=== PATIENT | female | born 1955 | race Hispanic/Latino ===

== ENCOUNTER 2016-05-04 22:04 | Emergency (ER) | payer MEDICARE ==
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
[2016-05-04 23:36] LABS: BUN/Creatinine Ratio 15.55; Blood Urea Nitrogen 14 mg/dL (7-17); Calcium 9.3 mg/dL (8.4-10.2); Carbon Dioxide 24 mmol/L (22-30); Chloride 98.6 mmol/L (98-107); Glucose 116 mg/dL (65-100); Potassium 3.9 mmol/L (3.6-5.0); Sodium 140 mmol/L (137-145)
[2016-05-04 23:37] LABS: Basophils % (Auto) 0.7 % (0.0-1.8); Eosinophils % (Auto) 2.3 % (0.0-4.3); Hematocrit 39.3 % (30.3-42.9); Hemoglobin 13.6 gm/dl (10.1-14.3); Mean Corpuscular HGB Conc 35 % (30-34); Mean Corpuscular Hemoglobin 32 pg (28-32); Mean Corpuscular Volume 91 fl (79-97); Platelet Count 349 K/mm3 (140-440); Red Blood Count 4.34 M/mm3 (3.65-5.03); Red Cell Distribution Width 13.8 % (13.2-15.2); White Blood Count 9.4 K/mm3 (4.5-11.0)
[2016-05-04 23:51] LABS: Anion Gap 21 mmol/L
[2016-05-05 03:51] VITALS: BP 135/75
--- NOTE | 2016-05-05 04:07 | Emergency Department Report ---
- General Chief Complaint: Dyspnea/Respdistress Stated Complaint: FLU SX/PAIN Time Seen by Provider: 05/04/16 22:30 Source: patient Mode of arrival: Ambulatory Limitations: No Limitations - History of Present Illness Initial Comments: 60-year-old female with a past medical history of manic depression and previous bronchitis presents to the hospital complaints of cough, chest pain, and generalized body aches with intermittent fever. Patient states symptoms intermittently for the past several weeks. Patient reports his pain with coughing and inspiration. Subjective fever reported. Positive associated runny nose and sneezing. - Related Data Home Medications Medication Instructions Recorded Confirmed Last Taken Albuterol [Proventil Tab] 4 mg PO BID PRN 01/28/16 01/28/16 Unknown Previous Rx's Medication Instructions Recorded Last Taken Type Ciprofloxacin HCl [Ciprofloxacin 500 mg PO Q12HR #20 tab 02/01/16 Unknown Rx TAB] Ziprasidone [Geodon] 20 mg PO BID #60 capsule 02/01/16 Unknown Rx oxyCODONE /ACETAMINOPHEN [Percocet 1 tab PO Q4HR #10 tab 02/01/16 Unknown Rx 5/325] Azithromycin [Zithromax Z-SERGO] 1 dose PO DAILY 5 Days 05/05/16 Unknown Rx Benzonatate [Tessalon Perles] 100 mg PO Q8HR PRN #30 capsule 05/05/16 Unknown Rx Pseudoephedrine [Sudafed] 60 mg PO BID PRN #20 tab 05/05/16 Unknown Rx Allergies Allergy/AdvReac Type Severity Reaction Status Date / Time cephalexin monohydrate Allergy Rash Verified 03/11/15 17:41 [From Keflex] aripiprazole [From Abilify] AdvReac "tardive Verified 03/11/15 17:41 dyskinesia" haloperidol [From Haldol] AdvReac pain Verified 03/11/15 17:41 haloperidol lactate AdvReac pain Verified 03/11/15 17:41 [From Haldol] lisinopril AdvReac "it hurts Verified 03/11/15 17:41 my head" lithium AdvReac "It makes Verified 03/11/15 17:41 me mad" Phenothiazines AdvReac pain Verified 03/11/15 17:41 quetiapine fumarate AdvReac pain Verified 03/11/15 17:41 [From Seroquel] risperidone [From Risperdal] AdvReac tardive Verified 03/11/15 17:41 dyskinesia steroids Allergy Unknown Uncoded 03/11/15 17:41 ED Review of Systems ROS: Stated complaint: FLU SX/PAIN Other details as noted in HPI Comment: All other systems reviewed and negative Other: Constitutional: Subjective fever Eyes: No eye pain visual changes or discharge ENT: Nasal congestion Neck: Denies pain Respiratory: As per HPI Cardiovascular: As per HPI GI: Denies abdominal pain, nausea, vomiting, diarrhea : Denies dysuria Musculoskeletal: Body ache Skin: Denies rash, lesions, erythema Neurologic: Denies headache, numbness, weakness Psychiatric: Denies suicidal ideation, hallucinations ED Past Medical Hx - Past Medical History Previous Medical History?: Yes Hx Congestive Heart Failure: No Hx Diabetes: No Hx Psychiatric Treatment: Yes (manic depression) Hx Asthma: No Hx COPD: Yes Additional medical history: bronchitis. neurogenic bladder. Multiple prior UTIs and kidney stone - Surgical History Past Surgical History?: Yes Additional Surgical History: hysterectomy. hemorrhoid - Social History Smoking Status: Current Every Day Smoker - Medications Home Medications: Home Medications Medication Instructions Recorded Confirmed Last Taken Type Albuterol [Proventil Tab] 4 mg PO BID PRN 01/28/16 01/28/16 Unknown History Ciprofloxacin HCl [Ciprofloxacin 500 mg PO Q12HR #20 tab 02/01/16 Unknown Rx TAB] Ziprasidone [Geodon] 20 mg PO BID #60 capsule 02/01/16 Unknown Rx oxyCODONE /ACETAMINOPHEN [Percocet 1 tab PO Q4HR #10 tab 02/01/16 Unknown Rx 5/325] Azithromycin [Zithromax Z-SERGO] 1 dose PO DAILY 5 Days 05/05/16 Unknown Rx Benzonatate [Tessalon Perles] 100 mg PO Q8HR PRN #30 capsule 05/05/16 Unknown Rx Pseudoephedrine [Sudafed] 60 mg PO BID PRN #20 tab 05/05/16 Unknown Rx ED Physical Exam - General Limitations: No Limitations - Other Other exam information: General: No limitations, patient is alert in no acute distress Head exam: Atraumatic, normocephalic Eyes exam: Normal appearance, pupils equal reactive to light, extraocular movements intact ENT: Moist mucous membrane, normal oropharynx, nasal congestion Neck exam: Normal inspection, full range of motion, no meningismus nontender Respiratory exam: Clear to auscultation bilateral, no wheezes, rales, crackles Cardiovascular: Normal rate and rhythm, normal heart sounds Abdomen: Soft, nondistended, and nontender, with normal bowel sounds, no rebound, or guarding Extremity: Full range of motion normal inspection no deformity, no edema Back: Normal Inspection, full range of motion, no tenderness Neurologic: Alert, oriented x3, cranial nerves intact, no motor or sensory deficit Psychiatric: normal affect, normal mood Skin: Warm, dry, intact ED Course Vital Signs 05/04/16 05/05/16 22:30 03:45 Temperature 98.2 F 98.0 F Pulse Rate 112 H 100 H Respiratory 18 18 Rate Blood Pressure 106/85 Blood Pressure 135/75 [Right] O2 Sat by Pulse 94 97 Oximetry ED Medical Decision Making - Lab Data Result diagrams: 05/04/16 22:45 05/04/16 22:45 Lab Results 05/04/16 05/04/16 Range/Units 22:45 22:45 WBC 9.4 (4.5-11.0) K/mm3 RBC 4.34 (3.65-5.03) M/mm3 Hgb 13.6 (10.1-14.3) gm/dl Hct 39.3 (30.3-42.9) % MCV 91 (79-97) fl MCH 32 (28-32) pg MCHC 35 H (30-34) % RDW 13.8 (13.2-15.2) % Plt Count 349 (140-440) K/mm3 Lymph % (Auto) 31.4 (13.4-35.0) % [place] % (Auto) 7.6 H (0.0-7.3) % Eos % (Auto) 2.3 (0.0-4.3) % Baso % (Auto) 0.7 (0.0-1.8) % Lymph # 3.0 (1.2-5.4) K/mm3 [place] # 0.7 (0.0-0.8) K/mm3 Eos # 0.2 (0.0-0.4) K/mm3 Baso # 0.1 (0.0-0.1) K/mm3 Seg Neutrophils % 58.0 (40.0-70.0) % Seg Neutrophils # 5.5 (1.8-7.7) K/mm3 Sodium 140 (137-145) mmol/L Potassium 3.9 (3.6-5.0) mmol/L Chloride 98.6 (98-107) mmol/L Carbon Dioxide 24 (22-30) mmol/L Anion Gap 21 mmol/L BUN 14 (7-17) mg/dL Creatinine 0.9 (0.7-1.2) mg/dL Estimated GFR > 60 ml/min BUN/Creatinine Ratio 15.55 % Glucose 116 H (65-100) mg/dL Calcium 9.3 (8.4-10.2) mg/dL Troponin T < 0.010 (0.00-0.029) ng/mL - EKG Data -: EKG Interpreted by Me (sinus rhythm rate 112) - EKG Data When compared to previous EKG there are: previous EKG unavailable - Radiology Data Radiology results: image reviewed (chest x-ray: No acute findings) - Medical Decision Making Heart rate to 100 without ED treatment. Patient treated with antibiotics for acute bronchitis and cough medicine. She is nontoxic appearing with unremarkable chest x-ray and lab work. No signs of hypoxia. Patient given first dose of azithromycin and Tessalon Perles prior to discharge - Differential Diagnosis bronchitis, pneumonia, viral syndrome, influenza Critical Care Time: No Critical care attestation.: If time is entered above; I have spent that time in minutes in the direct care of this critically ill patient, excluding procedure time. ED Disposition Clinical Impression: Acute bronchitis Qualifiers: Bronchitis organism: unspecified organism Qualified Code(s): J20.9 - Acute bronchitis, unspecified Disposition: DISCHARGED TO HOME OR SELFCARE Is pt being admited?: No Does the pt Need Aspirin: No Condition: Stable Instructions: Acute Bronchitis (ED) Additional Instructions: Take the medication as prescribed. Return if symptoms worsen. Prescriptions: Azithromycin [Zithromax Z-SERGO] 1 dose PO DAILY 5 Days Benzonatate [Tessalon Perles] 100 mg PO Q8HR PRN #30 capsule PRN Reason: Cough Pseudoephedrine [Sudafed] 60 mg PO BID PRN #20 tab PRN Reason: Nasal Congestion Referrals: PRIMARY CARE, [Primary Care Provider] - 3-5 Days [facility] [Provider Group] - 3-5 Days Time of Disposition: 04:06
[2016-05-05] MEDS ORDERED: TESSALON PERLES PO ONE (04:08)
[2016-05-05] MEDS ORDERED: ZITHROMAX PO ONE (04:08)
--- NOTE | 2016-05-05 09:40 | XRay Report ---
Chest 2 views: Compared to 03/11/15. History: Shortness of breath. Findings: Normal cardiomediastinal silhouette. Trachea is midline. No consolidation, pneumothorax or pleural effusion. Impression: No acute cardiopulmonary findings.
== END 2016-05-05 05:48 | disposition home or self-care (01) ==
LOC: ED 22:04
DX: J20.9 Acute bronchitis, unspecified (principal); M79.1 Myalgia; J44.9 Chronic obstructive pulmonary disease, unspecified; F33.9 Major depressive disorder, recurrent, unspecified; F17.200 Nicotine dependence, unspecified, uncomplicated; Z88.1 Allergy status to other antibiotic agents; Z88.8 Allergy status to other drugs, medicaments and biological substances
CPT/HCPCS: 36415; 71020; 80048; 84484; 85025; 93005; 93010; 99284

== ENCOUNTER 2016-05-27 14:04 | Emergency (ER) | payer MEDICARE ==
[2016-05-27 17:08] LABS: Anion Gap 19 mmol/L; BUN/Creatinine Ratio 13.75; Blood Urea Nitrogen 11 mg/dL (7-17); Calcium 8.7 mg/dL (8.4-10.2); Carbon Dioxide 25 mmol/L (22-30); Chloride 97.2 mmol/L (98-107); Glucose 114 mg/dL (65-100); Potassium 3.9 mmol/L (3.6-5.0); Sodium 137 mmol/L (137-145)
[2016-05-27 17:27] LABS: Basophils % (Auto) 0.7 % (0.0-1.8); Eosinophils % (Auto) 0.9 % (0.0-4.3); Hematocrit 41.7 % (30.3-42.9); Hemoglobin 13.8 gm/dl (10.1-14.3); Mean Corpuscular HGB Conc 33 % (30-34); Mean Corpuscular Hemoglobin 31 pg (28-32); Mean Corpuscular Volume 93 fl (79-97); Platelet Count 291 K/mm3 (140-440); Red Blood Count 4.51 M/mm3 (3.65-5.03); Red Cell Distribution Width 13.7 % (13.2-15.2); White Blood Count 7.7 K/mm3 (4.5-11.0)
[2016-05-27 18:34] LABS: Bilirubin,Urine NEG (Negative); Blood,Urine NEG (Negative); Ketones,Urine NEG (Negative); Leukocyte Esterase,Urine TR (Negative); Mucus,Urine FEW /HPF; Nitrite,Urine NEG (Negative); Protein,Urine <15 mg/dL mg/dL (Negative); Urobilinogen,Urine < 2.0 mg/dL (<2.0)
[2016-05-28] MEDS ORDERED: PROVENTIL IH ONE (03:50)
[2016-05-28] MEDS ORDERED: ATROVENT IH ONE (03:50)
--- NOTE | 2016-05-28 06:39 | Emergency Department Report ---
HPI - General Chief Complaint: Upper Respiratory Infection Time Seen by Provider: 05/28/16 03:42 - HPI HPI: 61-year-old female who presents to the emergency department with a complaint of a 2 to three-day history of a mixed dry and productive cough, chest congestion. Patient's that she was diagnosed with bronchitis couple weeks ago and does not think that she has clearly got rid of it. She denies any chest pain but does say that she gets some chest wall pain when she coughs. She has a past medical history of COPD but is not oxygen dependent, bronchitis , manic depression, neurogenic bladder. She is a tobacco smoker. She denies having a primary care doctor. No recent travel or sick contacts at home. She denies any history of MD, CVA, PE/DVT. She did not take anything for symptoms prior to presentation. ED Past Medical Hx - Past Medical History Previous Medical History?: Yes Hx Congestive Heart Failure: No Hx Diabetes: No Hx Psychiatric Treatment: Yes (manic depression) Hx Asthma: No Hx COPD: Yes Additional medical history: bronchitis. neurogenic bladder. Multiple prior UTIs and kidney stone - Surgical History Past Surgical History?: Yes Additional Surgical History: hysterectomy. hemorrhoid - Social History Smoking Status: Current Every Day Smoker Substance Use Type: None - Medications Home Medications: Home Medications Medication Instructions Recorded Confirmed Last Taken Type Ciprofloxacin HCl [Ciprofloxacin 500 mg PO Q12HR #20 tab 02/01/16 Unknown Rx TAB] Ziprasidone [Geodon] 20 mg PO BID #60 capsule 02/01/16 Unknown Rx oxyCODONE /ACETAMINOPHEN [Percocet 1 tab PO Q4HR #10 tab 02/01/16 Unknown Rx 5/325] Azithromycin [Zithromax Z-SERGO] 1 dose PO DAILY 5 Days 05/05/16 Unknown Rx Pseudoephedrine [Sudafed] 60 mg PO BID PRN #20 tab 05/05/16 Unknown Rx ALBUTEROL Inhaler [ProAir HFA 2 puff IH QID PRN #1 inhalation 05/28/16 Unknown Rx Inhaler] Albuterol [Proventil Tab] 4 mg PO BID PRN #16 tablet 05/28/16 Unknown Rx Benzonatate [Tessalon Perles] 100 mg PO Q8HR PRN #20 capsule 05/28/16 Unknown Rx Levofloxacin [Levaquin] 750 mg PO QDAY #7 tablet 05/28/16 Unknown Rx ED Review of Systems ROS: Stated complaint: ACUTE BRONCHITIS,COPD Other details as noted in HPI Comment: All other systems reviewed and negative Constitutional: denies: chills, fever Eyes: denies: eye pain, eye discharge, vision change ENT: denies: ear pain, throat pain Respiratory: cough, shortness of breath, wheezing Cardiovascular: denies: palpitations, edema Gastrointestinal: denies: abdominal pain, nausea, diarrhea Genitourinary: denies: urgency, dysuria, discharge Musculoskeletal: denies: back pain, joint swelling, arthralgia Skin: denies: rash, lesions Neurological: denies: headache, weakness, paresthesias Physical Exam - Physical Exam Vital Signs: Vital Signs 05/27/16 05/28/16 05/28/16 15:17 04:06 04:11 Temperature 98.3 F Pulse Rate 116 H 116 H Pulse Rate [ Bilateral] Pulse Rate [ Throughout] Respiratory 20 30 H Rate Respiratory Rate [Bilateral ] Respiratory Rate [ Throughout] Blood Pressure 121/76 126/74 O2 Sat by Pulse 99 93 93 Oximetry 05/28/16 05/28/16 05/28/16 04:21 04:30 04:31 Temperature Pulse Rate 124 H 118 H Pulse Rate [ Bilateral] Pulse Rate [ Throughout] Respiratory 40 H 34 H 35 H Rate Respiratory Rate [Bilateral ] Respiratory Rate [ Throughout] Blood Pressure 123/76 130/67 O2 Sat by Pulse 88 94 93 Oximetry 05/28/16 05/28/16 05/28/16 04:37 04:41 04:50 Temperature Pulse Rate 86 Pulse Rate [ 87 Bilateral] Pulse Rate [ 124 H Throughout] Respiratory 34 H Rate Respiratory 20 Rate [Bilateral ] Respiratory 20 Rate [ Throughout] Blood Pressure 130/67 O2 Sat by Pulse 100 Oximetry 05/28/16 05/28/16 05/28/16 04:51 05:00 05:11 Temperature Pulse Rate 88 100 H 82 Pulse Rate [ Bilateral] Pulse Rate [ Throughout] Respiratory 28 H 29 H 25 H Rate Respiratory Rate [Bilateral ] Respiratory Rate [ Throughout] Blood Pressure 115/53 116/54 116/54 O2 Sat by Pulse 93 91 88 Oximetry 05/28/16 05/28/16 05/28/16 05:21 05:30 05:41 Temperature Pulse Rate 79 104 H 99 H Pulse Rate [ Bilateral] Pulse Rate [ Throughout] Respiratory 24 25 H 26 H Rate Respiratory Rate [Bilateral ] Respiratory Rate [ Throughout] Blood Pressure 107/51 132/54 132/54 O2 Sat by Pulse 86 85 89 Oximetry 05/28/16 05/28/16 05/28/16 05:51 06:01 06:11 Temperature Pulse Rate 79 79 80 Pulse Rate [ Bilateral] Pulse Rate [ Throughout] Respiratory 29 H 26 H 25 H Rate Respiratory Rate [Bilateral ] Respiratory Rate [ Throughout] Blood Pressure 123/48 96/36 96/36 O2 Sat by Pulse 89 88 88 Oximetry 05/28/16 06:25 Temperature 98.7 F Pulse Rate Pulse Rate [ Bilateral] Pulse Rate [ Throughout] Respiratory Rate Respiratory Rate [Bilateral ] Respiratory Rate [ Throughout] Blood Pressure O2 Sat by Pulse Oximetry Physical Exam: GENERAL: The patient is well-developed well-nourished. HEENT: Normocephalic. Atraumatic. Extraocular motions are intact. Patient has moist mucous. Pupils equal reactive to light bilaterally. NECK: Supple. Trachea is midline. CHEST/LUNGS: Mild wheezing throughout the chest. Patient has a productive sounding cough heard during examination. Mild tachypnea but no accessory muscle use. There is no respiratory distress noted. HEART/CARDIOVASCULAR: Regular. There is mild tachycardia. There is no gallop rub or murmur. ABDOMEN: Abdomen is soft, nontender. Patient has normal bowel sounds. There is no abdominal distention. SKIN: There is no rash. Warm and dry. NEURO: The patient is awake, alert, and oriented. The patient is cooperative. The patient has no focal neurologic deficits. The patient has normal speech. MUSCULOSKELETAL: There is no tenderness or deformity. There is no limitation range of motion. There is no evidence of acute injury. ED Course Vital Signs 05/27/16 05/28/16 05/28/16 15:17 04:06 04:11 Temperature 98.3 F Pulse Rate 116 H 116 H Pulse Rate [ Bilateral] Pulse Rate [ Throughout] Respiratory 20 30 H Rate Respiratory Rate [Bilateral ] Respiratory Rate [ Throughout] Blood Pressure 121/76 126/74 O2 Sat by Pulse 99 93 93 Oximetry 05/28/16 05/28/16 05/28/16 04:21 04:30 04:31 Temperature Pulse Rate 124 H 118 H Pulse Rate [ Bilateral] Pulse Rate [ Throughout] Respiratory 40 H 34 H 35 H Rate Respiratory Rate [Bilateral ] Respiratory Rate [ Throughout] Blood Pressure 123/76 130/67 O2 Sat by Pulse 88 94 93 Oximetry 05/28/16 05/28/16 05/28/16 04:37 04:41 04:50 Temperature Pulse Rate 86 Pulse Rate [ 87 Bilateral] Pulse Rate [ 124 H Throughout] Respiratory 34 H Rate Respiratory 20 Rate [Bilateral ] Respiratory 20 Rate [ Throughout] Blood Pressure 130/67 O2 Sat by Pulse 100 Oximetry 05/28/16 05/28/16 05/28/16 04:51 05:00 05:11 Temperature Pulse Rate 88 100 H 82 Pulse Rate [ Bilateral] Pulse Rate [ Throughout] Respiratory 28 H 29 H 25 H Rate Respiratory Rate [Bilateral ] Respiratory Rate [ Throughout] Blood Pressure 115/53 116/54 116/54 O2 Sat by Pulse 93 91 88 Oximetry 05/28/16 05/28/16 05/28/16 05:21 05:30 05:41 Temperature Pulse Rate 79 104 H 99 H Pulse Rate [ Bilateral] Pulse Rate [ Throughout] Respiratory 24 25 H 26 H Rate Respiratory Rate [Bilateral ] Respiratory Rate [ Throughout] Blood Pressure 107/51 132/54 132/54 O2 Sat by Pulse 86 85 89 Oximetry 05/28/16 05/28/16 05/28/16 05:51 06:01 06:11 Temperature Pulse Rate 79 79 80 Pulse Rate [ Bilateral] Pulse Rate [ Throughout] Respiratory 29 H 26 H 25 H Rate Respiratory Rate [Bilateral ] Respiratory Rate [ Throughout] Blood Pressure 123/48 96/36 96/36 O2 Sat by Pulse 89 88 88 Oximetry 05/28/16 06:25 Temperature 98.7 F Pulse Rate Pulse Rate [ Bilateral] Pulse Rate [ Throughout] Respiratory Rate Respiratory Rate [Bilateral ] Respiratory Rate [ Throughout] Blood Pressure O2 Sat by Pulse Oximetry - Reevaluation(s) Reevaluation #1: 05/28/16 06:40 Patient says she is unable to take any steroids and refused them for treatment of her bronchospasm. ED Medical Decision Making - Lab Data Result diagrams: 05/27/16 16:31 05/27/16 16:31 - EKG Data -: EKG Interpreted by Ma EKG shows normal: sinus rhythm, axis, intervals, QRS complexes, ST-T waves Rate: tachycardia (110 bpm) - EKG Data When compared to previous EKG there are: previous EKG unavailable Interpretation: normal EKG (with tachycardia) - Radiology Data Radiology results: image reviewed interpreted by me: Chest x-ray did not show any acute process. Heart is normal shape and size. No effusions. No pneumothorax. No signs of pneumonia seen. - Medical Decision Making This is a 61-year-old female with history of COPD and asthma who presents to the emergency department with wheezing, shortness of breath, cough and recent diagnosis of bronchitis a few weeks ago. Patient does not appear in any respiratory distress. She does have mild wheezing throughout the chest with some tachypnea but no accessory muscle use, no conversational dyspnea. Chest x- ray does not show any signs of pneumonia or any other acute process. Despite the fact that the patient has these known comorbidities and no complaints of chest pain, other etiologies were evaluated. However labs show a negative troponin and a negative d-dimer. EKG does not show any signs of ST elevation MD , ischemia or dysrhythmia. I wanted to give the patient steroids to treat her bronchospasm but she says she cannot take them. She says she is not allergic but could not give a reason, just that she does not want them. She was given a breathing treatment and upon reevaluation the wheezing is improved. She still has a cough. Patient appears safe for discharge home. Patient was given an albuterol inhaler, Tessalon Perles, and Levaquin. Patient requested albuterol tabs, which I gave to her she says that they worked best, however she understands that she should not be using both the tabs an inhaler in excessive amounts as it can cause tachycardia and hypokalemia. Patient says that she does not have a primary care doctor and does not have insurance so she was given multiple referrals for primary care clinics in the area. She was highly encouraged to return to the emergency department with any worsening of her symptoms or any acute distress. - Differential Diagnosis pneumonia, bronchitis, asthma, MD, PE Critical Care Time: No Critical care attestation.: If time is entered above; I have spent that time in minutes in the direct care of this critically ill patient, excluding procedure time. ED Disposition Clinical Impression: COPD (chronic obstructive pulmonary disease) Qualifiers: COPD type: COPD with acute exacerbation Qualified Code(s): J44.1 - Chronic obstructive pulmonary disease with (acute) exacerbation Acute bronchitis Qualifiers: Bronchitis organism: unspecified organism Qualified Code(s): J20.9 - Acute bronchitis, unspecified Disposition: DISCHARGED TO HOME OR SELFCARE Is pt being admited?: No Condition: Stable Instructions: Acute Bronchitis (ED), Chronic Obstructive Pulmonary Disease (ED) Additional Instructions: These follow-up with a primary care doctor in the next few days. Return to the emergency department with any worsening of your symptoms or any acute distress. Prescriptions: Albuterol [Proventil Tab] 4 mg PO BID PRN #16 tablet PRN Reason: Wheezing ALBUTEROL Inhaler [ProAir HFA Inhaler] 2 puff IH QID PRN #1 inhalation PRN Reason: Shortness Of Breath Benzonatate [Tessalon Perles] 100 mg PO Q8HR PRN #20 capsule PRN Reason: Cough Levofloxacin [Levaquin] 750 mg PO QDAY #7 tablet Referrals: PRIMARY CAREMD [Primary Care Provider] - 3-5 Days JERRI MARRERO MD [Staff Physician] - 3-5 Days [facility] [Outside] - 3-5 Days [facility] [Outside] - 3-5 Days [facility] [Outside] - 3-5 Days [facility] [Outside] - 3-5 Days Time of Disposition: 06:43
[2016-05-28 07:26] VITALS: BP 118/51
--- NOTE | 2016-05-28 07:33 | XRay Report ---
CHEST X-RAY, 2 VIEWS History: Cough. Findings: There is mild hyperinflation. The lungs are clear. No evidence for pneumonia, pleural effusion or pneumothorax. Normal heart and mediastinal structures. The thoracic cage is grossly intact. Impression: Mild hyperinflation. No acute cardiopulmonary process. No significant change since 05/04/16.
== END 2016-05-28 07:26 | disposition home or self-care (01) ==
LOC: ED 14:04
DX: J44.1 Chronic obstructive pulmonary disease with (acute) exacerbation (principal); J20.9 Acute bronchitis, unspecified; F32.9 Major depressive disorder, single episode, unspecified; F17.200 Nicotine dependence, unspecified, uncomplicated; Z90.710 Acquired absence of both cervix and uterus
CPT/HCPCS: 36415; 71020; 80048; 81001; 83880; 84484; 85025; 85379; 94640

== ENCOUNTER 2016-05-28 10:30 | Emergency (ER) | payer MEDICARE ==
[2016-05-28 11:07] VITALS: BP 144/80
[2016-05-28] MEDS ORDERED: NORCO 5/325 PO ONE (14:17)
[2016-05-28] MEDS ORDERED: PROVENTIL IH ONE (14:17)
[2016-05-28] MEDS ORDERED: LEVAQUIN PO ONE (14:18)
--- NOTE | 2016-05-28 14:22 | Emergency Department Report ---
- General Chief Complaint: Upper Respiratory Infection Stated Complaint: KARISHMA/NAUSEA/VOMITING Time Seen by Provider: 05/28/16 14:16 Source: patient Mode of arrival: Ambulatory Limitations: No Limitations - History of Present Illness Initial Comments: 61-year-old female comes into the emergency room after being discharged us morning about 6:30 for same complaint of productive cough chest congestion kidney pain. She reports that she cannot afford the medications that the ER provider discharge her on. Patient also reports she has nowhere to go and no where to lay down to get better. Medical history of COPD but is not on oxygen, bronchitis, manic depression, neurogenic bladder. She has no primary care provider she has not recently traveled or sick contact at home. She denies any history of OR CVA pulmonary embolism or DVT. She was discharged on Levaquin, Tessalon Perles and albuterol inhaler. - Related Data Previous Rx's Medication Instructions Recorded Last Taken Type Ciprofloxacin HCl [Ciprofloxacin 500 mg PO Q12HR #20 tab 02/01/16 Unknown Rx TAB] Ziprasidone [Geodon] 20 mg PO BID #60 capsule 02/01/16 Unknown Rx oxyCODONE /ACETAMINOPHEN [Percocet 1 tab PO Q4HR #10 tab 02/01/16 Unknown Rx 5/325] Azithromycin [Zithromax Z-SERGO] 1 dose PO DAILY 5 Days 05/05/16 Unknown Rx Pseudoephedrine [Sudafed] 60 mg PO BID PRN #20 tab 05/05/16 Unknown Rx ALBUTEROL Inhaler [ProAir HFA 2 puff IH QID PRN #1 inhalation 05/28/16 Unknown Rx Inhaler] Albuterol [Proventil Tab] 4 mg PO BID PRN #16 tablet 05/28/16 Unknown Rx Benzonatate [Tessalon Perles] 100 mg PO Q8HR PRN #20 capsule 05/28/16 Unknown Rx Levofloxacin [Levaquin] 750 mg PO QDAY #7 tablet 05/28/16 Unknown Rx Allergies Allergy/AdvReac Type Severity Reaction Status Date / Time cephalexin monohydrate Allergy Rash Verified 05/28/16 11:09 [From Keflex] aripiprazole [From Abilify] AdvReac "tardive Verified 05/28/16 11:09 dyskinesia" haloperidol [From Haldol] AdvReac pain Verified 05/28/16 11:09 haloperidol lactate AdvReac pain Verified 05/28/16 11:09 [From Haldol] lisinopril AdvReac "it hurts Verified 05/28/16 11:09 my head" lithium AdvReac "It makes Verified 05/28/16 11:09 me mad" Phenothiazines AdvReac pain Verified 05/28/16 11:09 quetiapine fumarate AdvReac pain Verified 05/28/16 11:09 [From Seroquel] risperidone [From Risperdal] AdvReac tardive Verified 05/28/16 11:09 dyskinesia steroids Allergy Unknown Uncoded 05/28/16 11:09 ED Review of Systems ROS: Stated complaint: KARISHMA/NAUSEA/VOMITING Other details as noted in HPI Constitutional: chills, fever ENT: congestion. denies: throat pain Respiratory: cough, shortness of breath Cardiovascular: dyspnea on exertion Musculoskeletal: back pain ED Past Medical Hx - Past Medical History Hx Congestive Heart Failure: No Hx Diabetes: No Hx Psychiatric Treatment: Yes (manic depression) Hx Asthma: No Hx COPD: Yes Additional medical history: bronchitis. neurogenic bladder. Multiple prior UTIs and kidney stone - Surgical History Additional Surgical History: hysterectomy. hemorrhoid - Social History Smoking Status: Current Every Day Smoker Substance Use Type: None - Medications Home Medications: Home Medications Medication Instructions Recorded Confirmed Last Taken Type Ciprofloxacin HCl [Ciprofloxacin 500 mg PO Q12HR #20 tab 02/01/16 Unknown Rx TAB] Ziprasidone [Geodon] 20 mg PO BID #60 capsule 02/01/16 Unknown Rx oxyCODONE /ACETAMINOPHEN [Percocet 1 tab PO Q4HR #10 tab 02/01/16 Unknown Rx 5/325] Azithromycin [Zithromax Z-SERGO] 1 dose PO DAILY 5 Days 05/05/16 Unknown Rx Pseudoephedrine [Sudafed] 60 mg PO BID PRN #20 tab 05/05/16 Unknown Rx ALBUTEROL Inhaler [ProAir HFA 2 puff IH QID PRN #1 inhalation 05/28/16 Unknown Rx Inhaler] Albuterol [Proventil Tab] 4 mg PO BID PRN #16 tablet 05/28/16 Unknown Rx Benzonatate [Tessalon Perles] 100 mg PO Q8HR PRN #20 capsule 05/28/16 Unknown Rx Levofloxacin [Levaquin] 750 mg PO QDAY #7 tablet 05/28/16 Unknown Rx ED Physical Exam - General Limitations: No Limitations ED Course Vital Signs 05/28/16 11:03 Temperature 97.6 F Pulse Rate 116 H Respiratory 25 H Rate Blood Pressure 144/80 O2 Sat by Pulse 95 Oximetry ED Medical Decision Making - Medical Decision Making She was given 1 dose of Levaquin 750 mg by mouth as well as an albuterol treatment up to give her prednisone she declined. Case was discussed with Dr. MOODY. Chest was informed by the charge nurse and social media senior associate the patient eloped. Critical care attestation.: If time is entered above; I have spent that time in minutes in the direct care of this critically ill patient, excluding procedure time. ED Disposition Clinical Impression: Upper respiratory infection Disposition: ELOPED Is pt being admited?: No Does the pt Need Aspirin: No Referrals: PRIMARY CARE, [Primary Care Provider] - 3-5 Days
[2016-05-28] MEDS ORDERED: DELTASONE ONE (14:27)
[2016-05-28] MEDS ORDERED: DELTASONE PO ONE (14:29)
== END 2016-05-28 15:29 | disposition left against medical advice (07) ==
LOC: ED 10:30
DX: J06.9 Acute upper respiratory infection, unspecified (principal); F32.9 Major depressive disorder, single episode, unspecified; J44.9 Chronic obstructive pulmonary disease, unspecified; F17.200 Nicotine dependence, unspecified, uncomplicated; Z90.710 Acquired absence of both cervix and uterus; Z88.6 Allergy status to analgesic agent; Z88.1 Allergy status to other antibiotic agents; Z88.8 Allergy status to other drugs, medicaments and biological substances
CPT/HCPCS: 93005; 93010; 94640; 99283; J7512

== ENCOUNTER 2018-04-15 21:24 | Emergency (ER) | payer MEDICARE ==
[2018-04-16] MEDS ORDERED: IBUPROFEN PO ONE (06:10)
[2018-04-16] MEDS ORDERED: ATROVENT IH ONE (06:10)
--- NOTE | 2018-04-16 06:10 | Emergency Department Report ---
ED General Adult HPI - General Chief complaint: Extremity Problem,Nontraumatic Stated complaint: DIFF IN BREATHING Time Seen by Provider: 04/16/18 05:50 Source: patient, family Mode of arrival: Ambulatory Limitations: No Limitations - History of Present Illness Initial comments: This is a 62-year-old female here report that she is homeless and she is looking for a place to stay. She says she slept outside last night for part of the time and that she slept in the ED room. She is here complaining of cold and trying to find a room. Complain of difficulty walk-in and difficulty breathing. She said that she could not walk right today because it was cold last night and she was walking for long period of time. Pain is 8 out of 10 to both feet. Denies any fever chills. Patient has a history of chronic rhonchi there is, asthma COPD kidney stones, neurogenic bladder and multiple UTI with manic depression. He has any chest pain or nausea or vomiting. MD Complaint: pain to see and cough and with difficulty breathing and -: Last night Location: lower extremity Radiation: non-radiation Severity scale (0 -10): 8 Quality: aching Consistency: constant Improves with: none Worsens with: none Associated Symptoms: cough, shortness of breath. denies: confusion, chest pain, diaphoresis, fever/chills, headaches, loss of appetite, malaise, nausea/vomiting, rash, seizure, syncope, weakness Treatments Prior to Arrival: none - Related Data Previous Rx's Medication Instructions Recorded Last Taken Type Benzonatate [Tessalon Perles] 100 mg PO Q8HR PRN #20 capsule 05/28/16 Unknown Rx ALPRAZolam [Xanax TAB] 0.25 mg PO Q8H PRN #20 tablet 02/04/18 Unknown Rx Albuterol [Proventil Tab] 4 mg PO BID PRN #16 tablet 02/04/18 Unknown Rx Arformoterol Nebu [Brovana Nebu] 15 mcg IH Q12HRT #60 ml 02/04/18 Unknown Rx Budesonide [Pulmicort Respules] 0.5 mg IH Q12HRT #60 nebu 02/04/18 Unknown Rx HYDROcodone/HOMATROP 5-1.5 10 ml PO Q6H PRN #14 udc 02/04/18 Unknown Rx [HYDROcodone-Homatropin 5-1.5 mg per 5 ML] Ipratropium/Albuterol Sulfate 1 ampul IH Q8HRT #90 ampul.neb 02/04/18 Unknown Rx [DUONEB *Not for PRN Use*] levoFLOXacin [Levaquin TAB] 500 mg PO QDAY #3 tablet 02/04/18 Unknown Rx traMADol [Ultram 50 MG tab] 50 mg PO Q6H PRN #10 tablet 02/04/18 Unknown Rx ALBUTEROL Inhaler (OR & NICU) 2 puff IH QID PRN #1 inhalation 04/16/18 Unknown Rx [ProAir HFA Inhaler] Ibuprofen [Motrin] 600 mg PO Q8H PRN #12 tablet 04/16/18 Unknown Rx Prednisone [predniSONE 10 mg 10 mg PO .TAPER #1 tab.ds.pk 04/16/18 Unknown Rx (6-Day Pack, 21 Tabs)] levoFLOXacin [Levaquin] 750 mg PO QDAY 6 Days #6 tablet 04/16/18 Unknown Rx Allergies Allergy/AdvReac Type Severity Reaction Status Date / Time cephalexin monohydrate Allergy Rash Verified 05/28/16 11:09 [From Keflex] aripiprazole [From Abilify] AdvReac "tardive Verified 05/28/16 11:09 dyskinesia" haloperidol [From Haldol] AdvReac pain Verified 05/28/16 11:09 haloperidol lactate AdvReac pain Verified 05/28/16 11:09 [From Haldol] lisinopril AdvReac "it hurts Verified 05/28/16 11:09 my head" lithium AdvReac "It makes Verified 05/28/16 11:09 me mad" Phenothiazines AdvReac pain Verified 05/28/16 11:09 quetiapine fumarate AdvReac pain Verified 05/28/16 11:09 [From Seroquel] risperidone [From Risperdal] AdvReac tardive Verified 05/28/16 11:09 dyskinesia steroids Allergy Unknown Uncoded 05/28/16 11:09 ED Review of Systems ROS: Stated complaint: DIFF IN BREATHING Other details as noted in HPI Constitutional: denies: chills, fever ENT: congestion. denies: ear pain, throat pain Respiratory: cough, shortness of breath. denies: SOB with exertion, SOB at rest, wheezing Cardiovascular: denies: chest pain, palpitations, edema, syncope Gastrointestinal: denies: abdominal pain, nausea, vomiting Musculoskeletal: joint swelling, arthralgia. denies: back pain, myalgia Skin: denies: rash Neurological: denies: headache, numbness, paresthesias, confusion, abnormal gait, vertigo ED Past Medical Hx - Past Medical History Previous Medical History?: Yes Hx Congestive Heart Failure: No Hx Diabetes: No Hx Kidney Stones: Yes Hx Psychiatric Treatment: Yes (manic depression) Hx Asthma: Yes Hx COPD: Yes Additional medical history: bronchitis. neurogenic bladder. Multiple prior UTIs and kidney stone - Surgical History Past Surgical History?: Yes Additional Surgical History: hysterectomy. hemorrhoid - Family History Family history: hypertension - Social History Smoking Status: Current Every Day Smoker Substance Use Type: None - Medications Home Medications: Home Medications Medication Instructions Recorded Confirmed Last Taken Type Benzonatate [Tessalon Perles] 100 mg PO Q8HR PRN #20 capsule 05/28/16 02/01/18 Unknown Rx ALPRAZolam [Xanax TAB] 0.25 mg PO Q8H PRN #20 tablet 02/04/18 Unknown Rx Albuterol [Proventil Tab] 4 mg PO BID PRN #16 tablet 02/04/18 Unknown Rx Arformoterol Nebu [Brovana Nebu] 15 mcg IH Q12HRT #60 ml 02/04/18 Unknown Rx Budesonide [Pulmicort Respules] 0.5 mg IH Q12HRT #60 nebu 02/04/18 Unknown Rx HYDROcodone/HOMATROP 5-1.5 10 ml PO Q6H PRN #14 udc 02/04/18 Unknown Rx [HYDROcodone-Homatropin 5-1.5 mg per 5 ML] Ipratropium/Albuterol Sulfate 1 ampul IH Q8HRT #90 ampul.neb 02/04/18 Unknown Rx [DUONEB *Not for PRN Use*] levoFLOXacin [Levaquin TAB] 500 mg PO QDAY #3 tablet 02/04/18 Unknown Rx traMADol [Ultram 50 MG tab] 50 mg PO Q6H PRN #10 tablet 02/04/18 Unknown Rx ALBUTEROL Inhaler (OR & NICU) 2 puff IH QID PRN #1 inhalation 01/10/19 Unknown Rx [ProAir HFA Inhaler] Ibuprofen [Motrin] 600 mg PO Q8H PRN #12 tablet 04/16/18 Unknown Rx Prednisone [predniSONE 10 mg 10 mg PO .TAPER #1 tab.ds.pk 04/16/18 Unknown Rx (6-Day Pack, 21 Tabs)] levoFLOXacin [Levaquin] 750 mg PO QDAY 6 Days #6 tablet 04/16/18 Unknown Rx ED Physical Exam - General Limitations: No Limitations General appearance: alert, in no apparent distress - Head Head exam: Present: atraumatic, normocephalic, normal inspection - Eye Eye exam: Present: normal appearance, PERRL, EOMI Pupils: Present: normal accommodation - ENT ENT exam: Present: normal exam, normal orophraynx, mucous membranes moist, TM's normal bilaterally, normal external ear exam - Neck Neck exam: Present: normal inspection, full ROM, other (no C-spine tenderness). Absent: tenderness, lymphadenopathy - Respiratory Respiratory exam: Present: wheezes (upper lung oliva), rhonchi (upper lung oliva), decreased breath sounds, other (just this cough). Absent: respiratory distress, stridor, chest wall tenderness, accessory muscle use, prolonged expiratory - Cardiovascular Cardiovascular Exam: Present: regular rate, normal rhythm, normal heart sounds - GI/Abdominal GI/Abdominal exam: Present: soft, normal bowel sounds. Absent: distended, tenderness, guarding, rebound, rigid, organomegaly, mass - Extremities Exam Extremities exam: Present: normal inspection, full ROM, tenderness (both inflammatory process.), normal capillary refill, other (No cce. + 2 pulses in all extremities, no neurovascular compromise). Absent: pedal edema, joint swelling, calf tenderness - Back Exam Back exam: Present: normal inspection, full ROM, other (Ambulates without any difficulties). Absent: tenderness, CVA tenderness (R), CVA tenderness (L), muscle spasm, paraspinal tenderness, vertebral tenderness, rash noted - Neurological Exam Neurological exam: Present: alert, oriented X3, normal gait, reflexes normal. Absent: motor sensory deficit - Psychiatric Psychiatric exam: Present: normal affect, normal mood - Skin Skin exam: Present: warm, dry, intact, normal color. Absent: rash ED Course Vital Signs 04/15/18 04/16/18 21:28 07:55 Pulse Rate 93 H 79 Respiratory 18 18 Rate Blood Pressure 133/55 Blood Pressure 124/63 [Left] O2 Sat by Pulse 97 95 Oximetry - Reevaluation(s) Reevaluation #1: 04/16/18 08:21 Patient given Decadron 10 mg IM, albuterol 5 mg with Atrovent 1 mg nebulizer. Emil syringe and 750 mg and Motrin 800 mg. She is no longer short of breath and her wheezing has subsided. This cleared with cough. her pain to feet has subsided ED Medical Decision Making - Radiology Data Radiology results: report reviewed X-ray 2 view chest dictated by radiologist report reviewed by myself. Patient with sequela of COPD without any other findings. We see details below Findings [facility] [address] [place] [address] XRay Report Signed Patient: PIPER VIDAL MR#: [id number] : 1955 Acct:[id number] Age/Sex: 62 / F ADM Date: 04/15/18 Loc: ED Attending Dr: Ordering Physician: DARLEEN PEDERSON Date of Service: 04/16/18 Procedure(s): XR chest routine 2V Accession Number(s): [id number] cc: DARLEEN PEDERSON Fluoro Time In Minutes: FINAL REPORT EXAM: XR CHEST ROUTINE 2V HISTORY: difficulty breathing, history of COPD and asthma TECHNIQUE: PA and lateral chest radiographs PRIORS: 02/01/2018 FINDINGS: No mediastinal shift. Cardiac silhouette is not enlarged. Hyperaeration of the lungs and flattening of the hemidiaphragms. No pneumothorax, effusion, or focal pulmonary opacity. No acute skeletal finding. IMPRESSION: Sequela of COPD without pneumothorax or other acute pulmonary finding. Transcribed By: MB Dictated By: JUSTYN CAMPBELL MD Electronically Authenticated By: JUSTYN CAMPBELL MD Signed Date/Time: 04/16/18647 DD/ 9 TD/TT: 04/16/18649 - Medical Decision Making This is a 62-year-old female brought to the hospital report that she is been walking and sleeping outside and she has COPD and bronchitis and she is having shortness of breath and coughing. She says she ran out of her inhaler. She is also complaining of pain to both her feet from walking. Patient was given Motrin 800 mg which relieved her pain to feed. She was given nebulizer treatme nts in the emergency room to include albuterol and Atrovent which relieved her wheezing and rhonchi. She has diminished lung sounds from chronic COPD. Patient was also given Decadron 10 mg IM along with Levaquin 750 mg by mouth prior to discharge. Patient states she is feeling better. Vital signs stable she is afebrile. Chest x-ray two-view dictated by radiologist and report reviewed by myself and patient with sequela of COPD with no other acute findings. I discussed this with patient and she voiced understanding. Medication and treatment plan discussed and she is to follow up with primary care physician and if she does not have one to follow up at [facility] tomorrow. Patient to see social worker psychiatric prior to discharge for homelessness status. This was discussed with nurse and social service to call. They are not in the hospital. - Differential Diagnosis PNA, bronchitis, COPD exacerbation, URI with cough and congestion Critical care attestation.: If time is entered above; I have spent that time in minutes in the direct care of this critically ill patient, excluding procedure time. ED Disposition Clinical Impression: COPD with acute exacerbation, Arthralgia of both feet, Homeless Disposition: DC- TO HOME OR SELFCARE Is pt being admited?: No Does the pt Need Aspirin: No Condition: Stable Instructions: Chronic Obstructive Pulmonary Disease (ED), Arthralgia (ED), RICE Therapy (ED) Additional Instructions: Please follow up with outside Medical Center if you do not have a primary care physician tomorrow You are given her first dose of antibiotic today please fill another dose of antibiotic intake for another 6 day. Take prednisone dosepak as prescribed Take Motrin for pain T her feet Use inhaler every 6 hours 2 days and then as needed Condition worsens, return to the emergency room Prescriptions: ALBUTEROL Inhaler (OR & NICU) [ProAir HFA Inhaler] 2 puff IH QID PRN #1 inhal ation PRN Reason: wheezing/shortness of breath Ibuprofen [Motrin] 600 mg PO Q8H PRN #12 tablet PRN Reason: Pain levoFLOXacin [Levaquin] 750 mg PO QDAY 6 Days #6 tablet Prednisone [predniSONE 10 mg (6-Day Pack, 21 Tabs)] 10 mg PO .TAPER #1 tab.ds.pk Referrals: [facility] [Outside] - 04/17/18 PRIMARY CARE, [Primary Care Provider] - 04/17/18
[2018-04-16] MEDS ORDERED: PROVENTIL IH ONE (06:12)
[2018-04-16] MEDS ORDERED: DECADRON IM STA (06:12)
[2018-04-16] MEDS ORDERED: LEVAQUIN PO ONE (06:13)
--- NOTE | 2018-04-16 06:48 | XRay Report ---
FINAL REPORT EXAM: XR CHEST ROUTINE 2V HISTORY: difficulty breathing, history of COPD and asthma TECHNIQUE: PA and lateral chest radiographs PRIORS: 02/01/2018 FINDINGS: No mediastinal shift. Cardiac silhouette is not enlarged. Hyperaeration of the lungs and flattening o f the hemidiaphragms. No pneumothorax, effusion, or focal pulmonary opacity. No acute skeletal findin g. IMPRESSION: Sequela of COPD without pneumothorax or other acute pulmonary finding.
[2018-04-16 07:56] VITALS: BP 124/63
== END 2018-04-16 09:00 | disposition home or self-care (01) ==
LOC: ED 21:24
DX: J44.1 Chronic obstructive pulmonary disease with (acute) exacerbation (principal); M79.672 Pain in left foot; M79.671 Pain in right foot; F17.200 Nicotine dependence, unspecified, uncomplicated; Z59.0 Homelessness; Z90.710 Acquired absence of both cervix and uterus; Z88.1 Allergy status to other antibiotic agents; Z88.8 Allergy status to other drugs, medicaments and biological substances
CPT/HCPCS: 71046; 94640; 96372; 99282; J1100

== ENCOUNTER 2018-06-08 09:46 | Inpatient (IN) | payer MEDICARE ==
[2018-06-08 10:50] LABS: Basophils # (Auto) 0.1 K/mm3 (0.0-0.1); Basophils % (Auto) 0.5 % (0.0-1.8); Eosinophils # (Auto) 0.1 K/mm3 (0.0-0.4); Eosinophils % (Auto) 0.9 % (0.0-4.3); Hematocrit 44.6 % (30.3-42.9); Hemoglobin 15.2 gm/dl (10.1-14.3); Lymphocytes # (Auto) 1.4 K/mm3 (1.2-5.4); Lymphocytes % (Auto) 14.8 % (13.4-35.0); Mean Corpuscular HGB Conc 34 % (30-34); Mean Corpuscular Volume 94 fl (79-97); Monocytes # (Auto) 0.5 K/mm3 (0.0-0.8); Monocytes % (Auto) 5.1 % (0.0-7.3); Platelet Count 277 K/mm3 (140-440); Red Blood Count 4.77 M/mm3 (3.65-5.03); Red Cell Distribution Width 13.4 % (13.2-15.2)
[2018-06-08 10:56] LABS: Bacteria,Urine 1+ /HPF (Negative); Bilirubin,Urine NEG (Negative); Blood,Urine NEG (Negative); Color,Urine Yellow (Yellow); Mucus,Urine 1+ /HPF; Protein,Urine <15 mg/dL mg/dL (Negative); Urobilinogen,Urine < 2.0 mg/dL (<2.0)
[2018-06-08 11:01] LABS: Amphetamine Screen,Urine PRESUMPTIVE NEGATIVE; Benzodiazepines Screen,Urine PRESUMPTIVE NEGATIVE; Cannabinoid Screen,Urine PRESUMPTIVE NEGATIVE; Cocaine Screen,Urine PRESUMPTIVE NEGATIVE; Methadone Screen,Urine PRESUMPTIVE NEGATIVE; Opiate Screen,Urine PRESUMPTIVE NEGATIVE
[2018-06-08 11:01] LABS: INR 0.92 (0.87-1.13)
[2018-06-08 11:12] LABS: Creatine Kinase MB 5.1 ng/mL (0.0-4.0)
[2018-06-08 11:13] LABS: Alanine Aminotransferase 11 units/L (7-56); BUN/Creatinine Ratio 24; Blood Urea Nitrogen 17 mg/dL (7-17); Hemolysis Index 7
[2018-06-08] MEDS ORDERED: MACROBID PO ONE (11:32)
--- NOTE | 2018-06-08 11:51 | Cat Scan Report ---
CT HEAD WITHOUT CONTRAST: HISTORY: Syncope. TECHNIQUE: Sequential 2.5mm CT images. COMPARISON: none. FINDINGS: Cerebral Parenchyma: Within normal limits. Cerebellum: Within normal limits. Brainstem: Within normal limits. Ventricles: Normal. Sella: Normal. Extra-axial spaces: Normal. Basal Cisterns: Normal. Intracranial Hemorrhage: None. Midline Shift: None. Calvarium: Normal. Sinuses: Normal. Mastoid Air Cells: Normal. Visualized Orbits: Normal. IMPRESSION: Cranial CT scan within normal limits.
[2018-06-08] MEDS ORDERED: NACL 0.9% 1000 ML 1,000 ML IV ONE (11:58)
--- NOTE | 2018-06-08 11:59 | Emergency Department Report ---
ED Syncope HPI - General Chief Complaint: Syncope Stated Complaint: SYNCOPE/BLOOD PRESSURE/BUMP ON HEAD Time Seen by Provider: 06/08/18 10:20 Source: patient, old records Exam Limitations: no limitations - History of Present Illness Initial Comments: 63-year-old female depressed medical history of asthma, COPD, diabetes, manic depression disorder, and neurogenic bladder since the hospital with a syncopal episode. Patient is homeless and is not currently taking any medications. She states she was in the stomach and lightheaded. She went to the bathroom to have a bowel movement and urinate and woke up on the floor. Patient denies straining with bowel movement, nausea, vomiting, diarrhea,, or hematochezia. After the episode she continued to have lightheadedness with near-syncope. She complains of pain to the front and top of her head that is tender to palpation. She denies blurred vision, chest pain, or abdominal pain. She does have mild chronic intermittent shortness breath secondary to COPD - Related Data Allergies/Adverse Reactions: Allergies cephalexin monohydrate [From Keflex] Allergy (Verified 05/28/16 11:09) Rash aripiprazole [From Abilify] Adverse Reaction (Verified 05/28/16 11:09) "tardive dyskinesia" haloperidol [From Haldol] Adverse Reaction (Verified 05/28/16 11:09) pain haloperidol lactate [From Haldol] Adverse Reaction (Verified 05/28/16 11:09) pain lisinopril Adverse Reaction (Verified 05/28/16 11:09) "it hurts my head" lithium Adverse Reaction (Verified 05/28/16 11:09) "It makes me mad" Phenothiazines Adverse Reaction (Verified 05/28/16 11:09) pain quetiapine fumarate [From Seroquel] Adverse Reaction (Verified 05/28/16 11:09) pain risperidone [From Risperdal] Adverse Reaction (Verified 05/28/16 11:09) tardive dyskinesia steroids Allergy (Uncoded 05/28/16 11:09) Unknown Home Medications: Ambulatory Orders Benzonatate [Tessalon Perles] 100 mg PO Q8HR PRN #20 capsule 05/28/16 ALPRAZolam [Xanax TAB] 0.25 mg PO Q8H PRN #20 tablet 02/04/18 Albuterol [Proventil Tab] 4 mg PO BID PRN #16 tablet 02/04/18 Arformoterol Nebu [Brovana Nebu] 15 mcg IH Q12HRT #60 ml 02/04/18 Budesonide [Pulmicort Respules] 0.5 mg IH Q12HRT #60 nebu 02/04/18 HYDROcodone/HOMATROP 5-1.5 [HYDROcodone-Homatropin 5-1.5 mg per 5 ML] 10 ml PO Q6H PRN #14 udc 02/04/18 Ipratropium/Albuterol Sulfate [DUONEB *Not for PRN Use*] 1 ampul IH Q8HRT #90 ampul.neb 02/04/18 levoFLOXacin [Levaquin TAB] 500 mg PO QDAY #3 tablet 02/04/18 traMADol [Ultram 50 MG tab] 50 mg PO Q6H PRN #10 tablet 02/04/18 ALBUTEROL Inhaler (OR & NICU) [ProAir HFA Inhaler] 2 puff IH QID PRN #1 inhalat ion 04/16/18 Ibuprofen [Motrin] 600 mg PO Q8H PRN #12 tablet 04/16/18 Prednisone [predniSONE 10 mg (6-Day Pack, 21 Tabs)] 10 mg PO .TAPER #1 tab.ds.pk 04/16/18 levoFLOXacin [Levaquin] 750 mg PO QDAY 6 Days #6 tablet 04/16/18 ED Review of Systems ROS: Stated complaint: SYNCOPE/BLOOD PRESSURE/BUMP ON HEAD Other details as noted in HPI Comment: All other systems reviewed and negative ED Past Medical Hx - Past Medical History Hx Congestive Heart Failure: No Hx Diabetes: No Hx Kidney Stones: Yes Hx Psychiatric Treatment: Yes (manic depression) Hx Asthma: Yes Hx COPD: Yes Additional medical history: bronchitis. neurogenic bladder. Multiple prior UTIs and kidney stone - Surgical History Additional Surgical History: hysterectomy. hemorrhoid - Social History Smoking Status: Current Every Day Smoker Substance Use Type: None - Medications Home Medications: Home Medications Medication Instructions Recorded Confirmed Last Taken Type Benzonatate [Tessalon Perles] 100 mg PO Q8HR PRN #20 capsule 05/28/16 02/01/18 Unknown Rx ALPRAZolam [Xanax TAB] 0.25 mg PO Q8H PRN #20 tablet 02/04/18 Unknown Rx Albuterol [Proventil Tab] 4 mg PO BID PRN #16 tablet 02/04/18 Unknown Rx Arformoterol Nebu [Brovana Nebu] 15 mcg IH Q12HRT #60 ml 02/04/18 Unknown Rx Budesonide [Pulmicort Respules] 0.5 mg IH Q12HRT #60 nebu 02/04/18 Unknown Rx HYDROcodone/HOMATROP 5-1.5 10 ml PO Q6H PRN #14 udc 02/04/18 Unknown Rx [HYDROcodone-Homatropin 5-1.5 mg per 5 ML] Ipratropium/Albuterol Sulfate 1 ampul IH Q8HRT #90 ampul.neb 02/04/18 Unknown Rx [DUONEB *Not for PRN Use*] levoFLOXacin [Levaquin TAB] 500 mg PO QDAY #3 tablet 02/04/18 Unknown Rx traMADol [Ultram 50 MG tab] 50 mg PO Q6H PRN #10 tablet 02/04/18 Unknown Rx ALBUTEROL Inhaler (OR & NICU) 2 puff IH QID PRN #1 inhalation 04/16/18 Unknown Rx [ProAir HFA Inhaler] Ibuprofen [Motrin] 600 mg PO Q8H PRN #12 tablet 04/16/18 Unknown Rx Prednisone [predniSONE 10 mg 10 mg PO .TAPER #1 tab.ds.pk 04/16/18 Unknown Rx (6-Day Pack, 21 Tabs)] levoFLOXacin [Levaquin] 750 mg PO QDAY 6 Days #6 tablet 04/16/18 Unknown Rx ED Physical Exam - General Limitations: No Limitations - Other Other exam information: General: No limitations, patient is alert in no acute distress Head exam: Tenderness to anterior and top of scalp to palpation. No signs of hematoma, laceration, possible depression. Eyes exam: Normal appearance, pupils equal reactive to light, extraocular movements intact ENT: Moist mucous membrane, normal oropharynx Neck exam: Normal inspection, full range of motion, no meningismus nontender Respiratory exam: Clear to auscultation bilateral, no wheezes, rales, crackles Cardiovascular: Normal rate and rhythm, normal heart sounds Abdomen: Soft, nondistended, and nontender, with normal bowel sounds, no rebound, or guarding Extremity: Full range of motion normal inspection no deformity Back: Normal Inspection, full range of motion, no tenderness Neurologic: Alert, oriented x3, cranial nerves intact, no motor or sensory deficit, [id number] function intact Psychiatric: normal affect Skin: Warm, dry, intact ED Course Vital Signs 06/08/18 10:08 Temperature 97.8 F Pulse Rate 91 H Respiratory 20 Rate Blood Pressure 104/65 Blood Pressure 104/65 [Left] O2 Sat by Pulse 98 Oximetry ED Medical Decision Making - Lab Data Result diagrams: 06/08/18 10:32 06/08/18 10:32 Lab Results 06/08/18 06/08/18 06/08/18 Range/Units 10:20 10:20 10:32 WBC 9.3 (4.5-11.0) K/mm3 RBC 4.77 (3.65-5.03) M/mm3 Hgb 15.2 H (10.1-14.3) gm/dl Hct 44.6 H (30.3-42.9) % MCV 94 (79-97) fl MCH 32 (28-32) pg MCHC 34 (30-34) % RDW 13.4 (13.2-15.2) % Plt Count 277 (140-440) K/mm3 Lymph % (Auto) 14.8 (13.4-35.0) % [place] % (Auto) 5.1 (0.0-7.3) % Eos % (Auto) 0.9 (0.0-4.3) % Baso % (Auto) 0.5 (0.0-1.8) % Lymph # 1.4 (1.2-5.4) K/mm3 [place] # 0.5 (0.0-0.8) K/mm3 Eos # 0.1 (0.0-0.4) K/mm3 Baso # 0.1 (0.0-0.1) K/mm3 Seg Neutrophils % 78.7 H (40.0-70.0) % Seg Neutrophils # 7.3 (1.8-7.7) K/mm3 PT (12.2-14.9) Sec. INR (0.87-1.13) Sodium (137-145) mmol/L Potassium (3.6-5.0) mmol/L Chloride (98-107) mmol/L Carbon Dioxide (22-30) mmol/L Anion Gap mmol/L BUN (7-17) mg/dL Creatinine (0.7-1.2) mg/dL Estimated GFR ml/min BUN/Creatinine Ratio % Glucose (65-100) mg/dL POC Glucose (70-105) Calcium (8.4-10.2) mg/dL Magnesium (1.7-2.3) mg/dL Total Bilirubin (0.1-1.2) mg/dL AST (5-40) units/L ALT (7-56) units/L Alkaline Phosphatase (35-129) units/L Total Creatine Kinase (30-135) units/L CK-MB (CK-2) (0.0-4.0) ng/mL CK-MB (CK-2) Rel Index (0-4) Troponin T (0.00-0.029) ng/mL Total Protein (6.3-8.2) g/dL Albumin (3.9-5) g/dL Albumin/Globulin Ratio % Urine Color Yellow (Yellow) Urine Turbidity Clear (Clear) Urine pH 6.0 (5.0-7.0) Ur Specific [place] 1.010 (1.003-1.030) Urine Protein <15 mg/dl (Negative) mg/dL Urine Glucose (UA) Neg (Negative) mg/dL Urine Ketones Neg (Negative) mg/dL Urine Blood Neg (Negative) Urine Nitrite Neg (Negative) Urine Bilirubin Neg (Negative) Urine Urobilinogen < 2.0 (<2.0) mg/dL Ur Leukocyte Esterase Sm (Negative) Urine WBC (Auto) 11.0 H (0.0-6.0) /HPF Urine RBC (Auto) 3.0 (0.0-6.0) /HPF U Epithel Cells (Auto) 2.0 (0-13.0) /HPF Urine Bacteria (Auto) 1+ (Negative) /HPF Urine Mucus 1+ /HPF Urine Opiates Screen Presumptive negative Urine Methadone Screen Presumptive negative Ur Barbiturates Screen Presumptive negative Ur Phencyclidine Scrn Presumptive negative Ur Amphetamines Screen Presumptive negative U Benzodiazepines Scrn Presumptive negative Urine Cocaine Screen Presumptive negative U Marijuana (THC) Screen Presumptive negative Drugs of Abuse Note Disclamer 06/08/18 06/08/18 06/08/18 Range/Units 10:32 10:32 10:43 WBC (4.5-11.0) K/mm3 RBC (3.65-5.03) M/mm3 Hgb (10.1-14.3) gm/dl Hct (30.3-42.9) % MCV (79-97) fl MCH (28-32) pg MCHC (30-34) % RDW (13.2-15.2) % Plt Count (140-440) K/mm3 Lymph % (Auto) (13.4-35.0) % [place] % (Auto) (0.0-7.3) % Eos % (Auto) (0.0-4.3) % Baso % (Auto) (0.0-1.8) % Lymph # (1.2-5.4) K/mm3 [place] # (0.0-0.8) K/mm3 Eos # (0.0-0.4) K/mm3 Baso # (0.0-0.1) K/mm3 Seg Neutrophils % (40.0-70.0) % Seg Neutrophils # (1.8-7.7) K/mm3 PT 12.9 (12.2-14.9) Sec. INR 0.92 (0.87-1.13) Sodium 138 (137-145) mmol/L Potassium 4.1 (3.6-5.0) mmol/L Chloride 100.7 (98-107) mmol/L Carbon Dioxide 25 (22-30) mmol/L Anion Gap 16 mmol/L BUN 17 (7-17) mg/dL Creatinine 0.7 (0.7-1.2) mg/dL Estimated GFR > 60 ml/min BUN/Creatinine Ratio 24 % Glucose 108 H (65-100) mg/dL POC Glucose 91 (70-105) Calcium 9.0 (8.4-10.2) mg/dL Magnesium 2.00 (1.7-2.3) mg/dL Total Bilirubin 0.30 (0.1-1.2) mg/dL AST 16 (5-40) units/L ALT 11 (7-56) units/L Alkaline Phosphatase 76 (35-129) units/L Total Creatine Kinase 153 H (30-135) units/L CK-MB (CK-2) 5.1 H (0.0-4.0) ng/mL CK-MB (CK-2) Rel Index 3.3 (0-4) Troponin T < 0.010 (0.00-0.029) ng/mL Total Protein 7.1 (6.3-8.2) g/dL Albumin 4.0 (3.9-5) g/dL Albumin/Globulin Ratio 1.3 % Urine Color (Yellow) Urine Turbidity (Clear) Urine pH (5.0-7.0) Ur Specific [place] (1.003-1.030) Urine Protein (Negative) mg/dL Urine Glucose (UA) (Negative) mg/dL Urine Ketones (Negative) mg/dL Urine Blood (Negative) Urine Nitrite (Negative) Urine Bilirubin (Negative) Urine Urobilinogen (<2.0) mg/dL Ur Leukocyte Esterase (Negative) Urine WBC (Auto) (0.0-6.0) /HPF Urine RBC (Auto) (0.0-6.0) /HPF U Epithel Cells (Auto) (0-13.0) /HPF Urine Bacteria (Auto) (Negative) /HPF Urine Mucus /HPF Urine Opiates Screen Urine Methadone Screen Ur Barbiturates Screen Ur Phencyclidine Scrn Ur Amphetamines Screen U Benzodiazepines Scrn Urine Cocaine Screen U Marijuana (THC) Screen Drugs of Abuse Note - EKG Data -: EKG Interpreted by [place] EKG shows normal: sinus rhythm, axis (qrs 94), QRS complexes (qrsd 102), ST-T waves (no stemi) Rate: normal (97) - EKG Data When compared to previous EKG there are: no significant change - Radiology Data Radiology results: report reviewed CT HEAD WITHOUT CONTRAST: HISTORY: Syncope. TECHNIQUE: Sequential 2.5mm CT images. COMPARISON: none. FINDINGS: Cerebral Parenchyma: Within normal limits. Cerebellum: Within normal limits. Brainstem: Within normal limits. Ventricles: Normal. Sella: Normal. Extra-axial spaces: Normal. Basal Cisterns: Normal. Intracranial Hemorrhage: None. Midline Shift: None. Calvarium: Normal. Sinuses: Normal. Mastoid Air Cells: Normal. Visualized Orbits: Normal. IMPRESSION: Cranial CT scan within normal limits. AP CHEST: HISTORY: Syncope The lungs are hyperinflated but clear. Normal heart size and pulmonary vascularity. The bony thorax is grossly intact. IMPRESSION: Hyperinflated lungs. No acute process. No significant change since - Medical Decision Making Patient did have an increased heart rate with standing. Normal saline ordered. UA suggestive about infection. Macrobid initiated. Other ED workup unremarkable and patient will be admitted for further workup due to syncopal episode. - Differential Diagnosis anemia, dehydration, infection, vasovagal, arrhythmia, vascular disease Critical Care Time: No Critical care attestation.: If time is entered above; I have spent that time in minutes in the direct care of this critically ill patient, excluding procedure time. ED Disposition Clinical Impression: Syncope, UTI (urinary tract infection), COPD (chronic obstructive pulmonary disease), Manic depression, Headache, Homeless Disposition: OP ADMIT IP TO THIS HOSP Is pt being admited?: Yes Condition: Stable Time of Disposition: 12:27 (DR [place]/hosp)
[2018-06-08] MEDS ORDERED: BENADRYL IV PRN (19:10)
--- NOTE | 2018-06-09 01:24 | History and Physical Report ---
History of Present Illness Date of examination: 06/08/18 Date of admission: 06/08/18 12:28 Chief complaint: Passed out this AM History of present illness: 63-year-old female with past medical history of asthma, COPD, diabetes, manic depression disorder, and neurogenic bladder presents with a syncopal episode. Patient is homeless and is not currently taking any medications. She states she was lightheaded. She went to the bathroom to have a bowel movement and urinate and woke up on the floor. Passed out in the bathroom.LOC for a few seconds. Past Medical History Kidney Stones: Yes Psychiatric Treatment: Yes (manic depression) Asthma: Yes COPD: Yes Additional medical history: bronchitis. neurogenic bladder. Multiple prior UTIs and kidney stone Surgical History Hysterectomy. Hemorrhoids Social History Smoking Status: Current Every Day Smoker Substance Use Type: None Family History Htn Medications Home Medications: Home Medications Medication Instructions Recorded Confirmed Last Taken Type Benzonatate [Tessalon Perles] 100 mg PO Q8HR PRN #20 capsule 05/28/16 02/01/18 Unknown Rx ALPRAZolam [Xanax TAB] 0.25 mg PO Q8H PRN #20 tablet 02/04/18 Unknown Rx Albuterol [Proventil Tab] 4 mg PO BID PRN #16 tablet 02/04/18 Unknown Rx Arformoterol Nebu [Brovana Nebu] 15 mcg IH Q12HRT #60 ml 02/04/18 Unknown Rx Budesonide [Pulmicort Respules] 0.5 mg IH Q12HRT #60 nebu 02/04/18 Unknown Rx HYDROcodone/HOMATROP 5-1.5 10 ml PO Q6H PRN #14 udc 02/04/18 Unknown Rx [HYDROcodone-Homatropin 5-1.5 mg per 5 ML] Ipratropium/Albuterol Sulfate 1 ampul IH Q8HRT #90 ampul.neb 02/04/18 Unknown Rx [DUONEB *Not for PRN Use*] levoFLOXacin [Levaquin TAB] 500 mg PO QDAY #3 tablet 02/04/18 Unknown Rx traMADol [Ultram 50 MG tab] 50 mg PO Q6H PRN #10 tablet 02/04/18 Unknown Rx ALBUTEROL Inhaler (OR & NICU) 2 puff IH QID PRN #1 inhalation 04/16/18 Unknown Rx [ProAir HFA Inhaler] Ibuprofen [Motrin] 600 mg PO Q8H PRN #12 tablet 04/16/18 Unknown Rx Prednisone [predniSONE 10 mg 10 mg PO .TAPER #1 tab.ds.pk 04/16/18 Unknown Rx (6-Day Pack, 21 Tabs)] levoFLOXacin [Levaquin] 750 mg PO QDAY 6 Days #6 tablet 04/16/18 Unknown Rx Review of Systems ROS: Stated complaint: SYNCOPE/BLOOD PRESSURE/BUMP ON HEAD Other details as noted in HPI Comment: All other systems reviewed and negative Medications and Allergies Allergies Allergy/AdvReac Type Severity Reaction Status Date / Time cephalexin monohydrate Allergy Rash Verified 05/28/16 11:09 [From Keflex] aripiprazole [From Abilify] AdvReac "tardive Verified 05/28/16 11:09 dyskinesia" haloperidol [From Haldol] AdvReac pain Verified 05/28/16 11:09 haloperidol lactate AdvReac pain Verified 05/28/16 11:09 [From Haldol] lisinopril AdvReac "it hurts Verified 05/28/16 11:09 my head" lithium AdvReac "It makes Verified 05/28/16 11:09 me mad" Phenothiazines AdvReac pain Verified 05/28/16 11:09 quetiapine fumarate AdvReac pain Verified 05/28/16 11:09 [From Seroquel] risperidone [From Risperdal] AdvReac tardive Verified 05/28/16 11:09 dyskinesia steroids Allergy Unknown Uncoded 05/28/16 11:09 Home Medications Medication Instructions Recorded Confirmed Last Taken Type No Known Home Medications [No 06/08/18 06/08/18 Unknown History Reported Home Medications] Active Meds: Active Medications Diphenhydramine HCl (Benadryl) 25 mg IV Q6H PRN PRN Reason: Itching Exam - Constitutional Vitals: Temp Pulse Resp BP Pulse Ox 98.7 F 75 20 121/61 96 06/08/18 15:55 06/08/18 23:03 06/08/18 15:55 06/08/18 15:55 06/08/18 15:55 Results - Labs CBC & Chem 7: 06/08/18 10:32 06/08/18 10:32 Labs: Laboratory Last Values WBC 9.3 K/mm3 (4.5-11.0) 06/08/18 10:32 RBC 4.77 M/mm3 (3.65-5.03) 06/08/18 10:32 Hgb 15.2 gm/dl (10.1-14.3) H 06/08/18 10:32 Hct 44.6 % (30.3-42.9) H 06/08/18 10:32 MCV 94 fl (79-97) 06/08/18 10:32 MCH 32 pg (28-32) 06/08/18 10:32 MCHC 34 % (30-34) 06/08/18 10:32 RDW 13.4 % (13.2-15.2) 06/08/18 10:32 Plt Count 277 K/mm3 (140-440) 06/08/18 10:32 Lymph % (Auto) 14.8 % (13.4-35.0) 06/08/18 10:32 [place] % (Auto) 5.1 % (0.0-7.3) 06/08/18 10:32 Eos % (Auto) 0.9 % (0.0-4.3) 06/08/18 10:32 Baso % (Auto) 0.5 % (0.0-1.8) 06/08/18 10:32 Lymph # 1.4 K/mm3 (1.2-5.4) 06/08/18 10:32 [place] # 0.5 K/mm3 (0.0-0.8) 06/08/18 10:32 Eos # 0.1 K/mm3 (0.0-0.4) 06/08/18 10:32 Baso # 0.1 K/mm3 (0.0-0.1) 06/08/18 10:32 Seg Neutrophils % 78.7 % (40.0-70.0) H 06/08/18 10:32 Seg Neutrophils # 7.3 K/mm3 (1.8-7.7) 06/08/18 10:32 PT 12.9 Sec. (12.2-14.9) 06/08/18 10:32 INR 0.92 (0.87-1.13) 06/08/18 10:32 Sodium 138 mmol/L (137-145) 06/08/18 10:32 Potassium 4.1 mmol/L (3.6-5.0) 06/08/18 10:32 Chloride 100.7 mmol/L (98-107) 06/08/18 10:32 Carbon Dioxide 25 mmol/L (22-30) 06/08/18 10:32 Anion Gap 16 mmol/L 06/08/18 10:32 BUN 17 mg/dL (7-17) 06/08/18 10:32 Creatinine 0.7 mg/dL (0.7-1.2) 06/08/18 10:32 Estimated GFR > 60 ml/min 06/08/18 10:32 BUN/Creatinine Ratio 24 % 06/08/18 10:32 Glucose 108 mg/dL (65-100) H 06/08/18 10:32 POC Glucose 91 (70-105) 06/08/18 10:43 Calcium 9.0 mg/dL (8.4-10.2) 06/08/18 10:32 Magnesium 2.00 mg/dL (1.7-2.3) 06/08/18 10:32 Total Bilirubin 0.30 mg/dL (0.1-1.2) 06/08/18 10:32 AST 16 units/L (5-40) 06/08/18 10:32 ALT 11 units/L (7-56) 06/08/18 10:32 Alkaline Phosphatase 76 units/L (35-129) 06/08/18 10:32 Total Creatine Kinase 153 units/L (30-135) H 06/08/18 10:32 CK-MB (CK-2) 5.1 ng/mL (0.0-4.0) H 06/08/18 10:32 CK-MB (CK-2) Rel Index 3.3 (0-4) 06/08/18 10:32 Troponin T < 0.010 ng/mL (0.00-0.029) 06/08/18 10:32 Total Protein 7.1 g/dL (6.3-8.2) 06/08/18 10:32 Albumin 4.0 g/dL (3.9-5) 06/08/18 10:32 Albumin/Globulin Ratio 1.3 % 06/08/18 10:32 Urine Color Yellow (Yellow) 06/08/18 10:20 Urine Turbidity Clear (Clear) 06/08/18 10:20 Urine pH 6.0 (5.0-7.0) 06/08/18 10:20 Ur Specific [place] 1.010 (1.003-1.030) 06/08/18 10:20 Urine Protein <15 mg/dl mg/dL (Negative) 06/08/18 10:20 Urine Glucose (UA) Neg mg/dL (Negative) 06/08/18 10:20 Urine Ketones Neg mg/dL (Negative) 06/08/18 10:20 Urine Blood Neg (Negative) 06/08/18 10:20 Urine Nitrite Neg (Negative) 06/08/18 10:20 Urine Bilirubin Neg (Negative) 06/08/18 10:20 Urine Urobilinogen < 2.0 mg/dL (<2.0) 06/08/18 10:20 Ur Leukocyte Esterase Sm (Negative) 06/08/18 10:20 Urine WBC (Auto) 11.0 /HPF (0.0-6.0) H 06/08/18 10:20 Urine RBC (Auto) 3.0 /HPF (0.0-6.0) 06/08/18 10:20 U Epithel Cells (Auto) 2.0 /HPF (0-13.0) 06/08/18 10:20 Urine Bacteria (Auto) 1+ /HPF (Negative) 06/08/18 10:20 Urine Mucus 1+ /HPF 06/08/18 10:20 Urine Opiates Screen Presumptive negative 06/08/18 10:20 Urine Methadone Screen Presumptive negative 06/08/18 10:20 Ur Barbiturates Screen Presumptive negative 06/08/18 10:20 Ur Phencyclidine Scrn Presumptive negative 06/08/18 10:20 Ur Amphetamines Screen Presumptive negative 06/08/18 10:20 U Benzodiazepines Scrn Presumptive negative 06/08/18 10:20 Urine Cocaine Screen Presumptive negative 06/08/18 10:20 U Marijuana (THC) Screen Presumptive negative 06/08/18 10:20 Drugs of Abuse Note Disclamer 06/08/18 10:20 Short CBC 06/08/18 Range/Units 10:32 WBC 9.3 (4.5-11.0) K/mm3 Hgb 15.2 H (10.1-14.3) gm/dl Hct 44.6 H (30.3-42.9) % Plt Count 277 (140-440) K/mm3 BMP 06/08/18 10:32 Sodium 138 Potassium 4.1 Chloride 100.7 Carbon Dioxide 25 BUN 17 Creatinine 0.7 Glucose 108 H Calcium 9.0 Cardiac Enzymes 06/08/18 Range/Units 10:32 Total Creatine Kinase 153 H (30-135) units/L CK-MB (CK-2) 5.1 H (0.0-4.0) ng/mL Troponin T < 0.010 (0.00-0.029) ng/mL Liver Function 06/08/18 Range/Units 10:32 Total Bilirubin 0.30 (0.1-1.2) mg/dL AST 16 (5-40) units/L ALT 11 (7-56) units/L Alkaline Phosphatase 76 (35-129) units/L Albumin 4.0 (3.9-5) g/dL Urine 06/08/18 Range/Units 10:20 Urine Color Yellow (Yellow) Urine pH 6.0 (5.0-7.0) Ur Specific [place] 1.010 (1.003-1.030) Urine Protein <15 mg/dl (Negative) mg/dL Urine Glucose (UA) Neg (Negative) mg/dL - Imaging and Cardiology EKG: report reviewed (NSR 97/min Non specific ST T wave changes) CT Scan - head: report reviewed (NAF) Imaging and Cardiology: CXR IMPRESSION: Hyperinflated lungs. No acute process. No significant change since 04/16/18. Assessment and Plan Advance Directives: Yes (Full code) VTE prophylaxis?: Chemical Plan of care discussed with patient/family: Yes - Patient Problems (1) Syncope Current Visit: Yes Status: Acute Qualifiers: Encounter type: initial encounter Plan to address problem: Syncope w/u ECHO Lexiscan and CDS (2) COPD (chronic obstructive pulmonary disease) Current Visit: Yes Status: Chronic Qualifiers: Emphysema type: unspecified Plan to address problem: Cont Duonebs (3) UTI (urinary tract infection) Current Visit: Yes Status: Acute Qualifiers: Urinary tract infection type: acute cystitis Plan to address problem: On Macrobid 100 mg po bid Maybe discharged on Macrobid (4) BRONWYN (generalized anxiety disorder) Current Visit: Yes Status: Acute Plan to address problem: On Xanax 0.5 mg po tid (5) Nicotine dependence Current Visit: Yes Status: Chronic Qualifiers: Nicotine product type: cigarettes Plan to address problem: On Nicoderm patch (6) Homeless Current Visit: Yes Status: Chronic Plan to address problem: Social work consult requested (7) DVT prophylaxis Current Visit: No Status: Acute Plan to address problem: On Lovenox
[2018-06-09] MEDS ORDERED: ZOFRAN IV PRN (01:32)
[2018-06-09] MEDS ORDERED: SODIUM CHLORIDE FLUSH SYRINGE 10 ML IV PRN (01:32)
[2018-06-09] MEDS ORDERED: TYLENOL PO PRN (01:32)
[2018-06-09] MEDS ORDERED: DILAUDID IV PRN (01:32)
[2018-06-09] MEDS ORDERED: PERCOCET 5/325 PO PRN (01:32)
[2018-06-09] MEDS ORDERED: D5NS 1,000 ML IV SCH (02:00)
[2018-06-09] MEDS: MACROBID PO SCH ×3 (02:07→21:02)
[2018-06-09] MEDS: PEPCID IV SCH ×4 (02:08→21:04)
[2018-06-09 06:04] LABS: Basophils % (Auto) 0.4 % (0.0-1.8); Eosinophils # (Auto) 0.1 K/mm3 (0.0-0.4); Eosinophils % (Auto) 1.8 % (0.0-4.3); Hemoglobin 13.1 gm/dl (10.1-14.3); Lymphocytes # (Auto) 2.3 K/mm3 (1.2-5.4); Lymphocytes % (Auto) 34.6 % (13.4-35.0); Mean Corpuscular HGB Conc 34 % (30-34); Mean Corpuscular Volume 93 fl (79-97); Monocytes # (Auto) 0.5 K/mm3 (0.0-0.8); Monocytes % (Auto) 6.9 % (0.0-7.3); Platelet Count 249 K/mm3 (140-440); Red Blood Count 4.21 M/mm3 (3.65-5.03); Red Cell Distribution Width 13.6 % (13.2-15.2)
[2018-06-09 06:28] LABS: Alanine Aminotransferase 9 units/L (7-56); Albumin 3.6 g/dL (3.9-5); BUN/Creatinine Ratio 21; Blood Urea Nitrogen 15 mg/dL (7-17); Calcium 8.7 mg/dL (8.4-10.2); Hemolysis Index 7
[2018-06-09] MEDS: SODIUM CHLORIDE FLUSH SYRINGE 10 ML IV SCH ×2 (10:00→21:59)
[2018-06-09] MEDS: DUONEB *Not for PRN Use IH SCH ×4 (10:58→21:54)
--- NOTE | 2018-06-09 14:51 | Progress Note ---
Assessment and Plan / Syncope Syncope w/u ordered refused Lexiscan 2d echo preserved EF follow orthostatic vitals PT eval / COPD (chronic obstructive pulmonary disease) Cont Duonebs / UTI (urinary tract infection) On Macrobid 100 mg po bid Maybe discharged on Macrobid / BRONWYN (generalized anxiety disorder) On Xanax 0.5 mg po tid / Nicotine dependence On Nicoderm patch / Homeless Social work consult requested / DVT prophylaxis On Lovenox Subjective Date of service: 06/09/18 Interval history: patient seen and examined refused stress test today states she still feels tight in her chest tolerating diet Objective - Constitutional Vitals: Vital Signs - 12hr 06/09/18 06/09/18 10:55 11:12 Pulse Rate [ 82 82 Bilateral] Respiratory 20 20 Rate [Bilateral ] General appearance: Present: no acute distress - EENT Eyes: PERRL, EOM intact ENT: hearing intact, clear oral mucosa Ears: bilateral: normal - Neck Neck: supple, normal ROM - Respiratory Respiratory effort: normal Respiratory: bilateral: CTA - Cardiovascular Rhythm: regular Heart Sounds: Present: S1 & S2. Absent: gallop, rub Extremities: pulses intact, No edema, normal color, Full ROM - Gastrointestinal General gastrointestinal: Present: soft, non-tender, non-distended, normal bowel sounds - Integumentary Integumentary: clear, warm, dry - Musculoskeletal Musculoskeletal: 1, strength equal bilaterally - Neurologic Neurologic: moves all extremities - Psychiatric Psychiatric: memory intact, appropriate mood/affect, intact judgment & insight - Labs CBC & Chem 7: 06/09/18 05:10 06/09/18 05:10 Labs: Abnormal lab results 06/09/18 Range/Units 05:10 Glucose 112 H (65-100) mg/dL Total Protein 6.0 L (6.3-8.2) g/dL Albumin 3.6 L (3.9-5) g/dL
[2018-06-10] MEDS: DUONEB *Not for PRN Use IH SCH ×4 (08:23→20:47)
[2018-06-10] MEDS: SODIUM CHLORIDE FLUSH SYRINGE 10 ML IV SCH ×2 (10:30→21:16)
[2018-06-10] MEDS: MACROBID PO SCH ×2 (10:40→21:15)
[2018-06-10] MEDS: PEPCID PO SCH ×2 (12:10→21:15)
--- NOTE | 2018-06-10 14:59 | Discharge Summary ---
Providers - Providers Date of Admission: 06/08/18 12:28 Date of discharge: 06/11/18 Attending physician: DEREK BRADY 06/09/18 14:51 Physical Therapy Evaluation and Treat [CONS] Routine Comment: Reason For Exam: placement Primary care physician: [employer]MENT CONSULTANT Hospitalization Condition: Stable Pertinent studies: Head CT CXR Hospital course: 63-year-old female with past medical history of COPD, anxiety/depression disorder, and neurogenic bladder presents with a syncopal episode. Patient is homeless and is not currently taking any medications. She stated that she was lightheaded. She went to the bathroom to have a bowel movement and urinate, Passed out in the bathroom, woke up on the floor. Stated had LOC for a few seconds. She was admitted for syncope workup. Her CT head showed no acute process, 2d echo showed preserved EF. Treated for UTI, resumed med for COPD. CM consulted for placement, patient was then discharged to [facility] in stable condition. Discharge diagnosis and management: / Syncope, likely vasovagal event happen while sitting on the toilet Syncope w/u ordered, refused Lexiscan 2d echo showed preserved EF, refused orthostatic vitals Patient was ambulatory, recommended to keep hydrated and outpt followup / COPD (chronic obstructive pulmonary disease) Placed on Duonebs as needed / UTI (urinary tract infection) d/c with Macrobid 100 mg po bid / BRONWYN (generalized anxiety disorder) Placed On Xanax 0.5 mg po tid as needed / Nicotine dependence Placed on On Nicoderm patch / Homeless Social work consult requested, she was arranged for [facility] / DVT prophylaxis On Lovenox Physical exam General appearance: Present: no acute distress - EENT Eyes: PERRL, EOM intact ENT: hearing intact, clear oral mucosa Ears: bilateral: normal - Neck Neck: supple, normal ROM - Respiratory Respiratory effort: normal Respiratory: bilateral: CTA - Cardiovascular Rhythm: regular Heart Sounds: Present: S1 & S2. Absent: gallop, rub Extremities: pulses intact, No edema, normal color, Full ROM - Gastrointestinal General gastrointestinal: Present: soft, non-tender, non-distended, normal bowel sounds - Integumentary Integumentary: clear, warm, dry - Musculoskeletal Musculoskeletal: 1, strength equal bilaterally - Neurologic Neurologic: moves all extremities - Psychiatric Psychiatric: memory intact, appropriate mood/affect, intact judgment & insight Disposition: DC-01 TO HOME OR SELFCARE Time spent for discharge: 34 minutes Core Measure Documentation - Palliative Care Palliative Care/ Comfort Measures: Not Applicable - Core Measures Any of the following diagnoses?: history only Exam - Constitutional Vitals: Temp Pulse Resp BP Pulse Ox 97.6 F 73 20 149/56 95 06/10/18 11:47 06/10/18 11:47 06/10/18 11:47 06/10/18 11:47 06/10/18 11:47 Plan Activity: advance as tolerated, fall precautions Weight Bearing Status: Non-Weight Bearing Diet: regular Follow up with: PRIMARY CAREMD [Primary Care Provider] - 7 Days FLOYD ANDREWS MD [Staff Physician] - 7 Days Prescriptions: Nitrofurantoin [place]/M-Cryst [Macrobid CAP] 100 mg PO Q12HR #10 capsule ALBUTEROL Inhaler (OR & NICU) [Proair] 2 puff IH QID PRN 30 Days inhalation PRN Reason: Shortness Of Breath
[2018-06-10] MEDS ORDERED: NORCO 5/325 PO PRN (21:03)
[2018-06-10] MEDS: HABITROL TD SCH (21:15)
[2018-06-11 08:55] VITALS: BP 137/56
[2018-06-11] MEDS: DUONEB *Not for PRN Use IH SCH (09:26)
[2018-06-11] MEDS ORDERED: PROVENTIL IH PRN (09:29)
[2018-06-11] MEDS: HABITROL TD SCH (09:32)
[2018-06-11] MEDS: PEPCID PO SCH (09:32)
[2018-06-11] MEDS: MACROBID PO SCH (09:33)
[2018-06-11] MEDS: SODIUM CHLORIDE FLUSH SYRINGE 10 ML IV SCH (09:33)
--- NOTE | 2018-06-11 14:00 | Progress Note ---
Assessment and Plan / Syncope, likely vasovagal event happen while sitting on the toilet Syncope w/u ordered refused Lexiscan 2d echo preserved EF refused orthostatic vitals Patient ambulatory / COPD (chronic obstructive pulmonary disease) Cont Duonebs as needed / UTI (urinary tract infection) cont with Macrobid 100 mg po bid / BRONWYN (generalized anxiety disorder) will do Xanax 0.5 mg po tid as needed / Nicotine dependence On Nicoderm patch, but she is getting out off the floor for smoking / Homeless Social work consult requested / DVT prophylaxis On Lovenox d/c pending on disposition Physical exam General appearance: Present: no acute distress - EENT Eyes: PERRL, EOM intact ENT: hearing intact, clear oral mucosa Ears: bilateral: normal - Neck Neck: supple, normal ROM - Respiratory Respiratory effort: normal Respiratory: bilateral: CTA - Cardiovascular Rhythm: regular Heart Sounds: Present: S1 & S2. Absent: gallop, rub Extremities: pulses intact, No edema, normal color, Full ROM - Gastrointestinal General gastrointestinal: Present: soft, non-tender, non-distended, normal bowel sounds - Integumentary Integumentary: clear, warm, dry - Musculoskeletal Musculoskeletal: 1, strength equal bilaterally - Neurologic Neurologic: moves all extremities - Psychiatric Psychiatric: memory intact, appropriate mood/affect, intact judgment & insight Subjective Date of service: 06/10/18 Interval history: patient seen and examined tolerating diet, getting out of her room for smoking refused orthostatic vitals Objective - Constitutional Vitals: Vital Signs - 12hr 06/11/18 06/11/18 06/11/18 07:37 09:26 09:27 Temperature 97.4 F L Pulse Rate [ 73 Throughout] Respiratory 18 Rate Respiratory 18 Rate [ Throughout] Blood Pressure 137/56 O2 Sat by Pulse 92 Oximetry - Labs CBC & Chem 7: 06/09/18 05:10 06/09/18 05:10
[2018-06-11] MEDS ORDERED: DUONEB *Not for PRN Use IH SCH (20:00)
== END 2018-06-11 14:24 | disposition home or self-care (01) | DRG 312 ==
LOC: ED 09:46 → 4A 12:28
PROVIDERS: ADMIT Internal Medicine; ATTEND Internal Medicine
DX: R55 Syncope and collapse (principal); N30.00 Acute cystitis without hematuria; R51 Headache; J44.9 Chronic obstructive pulmonary disease, unspecified; F41.1 Generalized anxiety disorder; E11.9 Type 2 diabetes mellitus without complications; F17.210 Nicotine dependence, cigarettes, uncomplicated; F32.9 Major depressive disorder, single episode, unspecified; Z87.442 Personal history of urinary calculi; Z59.0 Homelessness; Z90.710 Acquired absence of both cervix and uterus; Z82.49 Family history of ischemic heart disease and other diseases of the circulatory system; Z79.899 Other long term (current) drug therapy
CPT/HCPCS: 36415; 70450; 71045; 80053; 80307; 81001; 82550; 82553; 82962; 83036; 83735; 84484; 85025; 85610; 93005; 93010; 93306; 94640; 96360; G0378; J7030; J7042

== ENCOUNTER 2019-02-04 21:59 | Observation (INO) | payer MEDICARE ==
--- NOTE | 2019-02-04 22:10 | Emergency Department Report ---
Blank Doc - Documentation Documentation: 63-year-old female that presents with SOB and chest pain. HX of COPD. This initial assessment/diagnostic orders/clinical plan/treatment(s) is/are subject to change based on patient's health status, clinical progression and re- assessment by fellow clinical providers in the ED. Further treatment and workup at subsequent clinical providers discretion. Patient/guardians urged not to elope from the ED as their condition may be serious if not clinically assessed and managed. Initial orders include: 1- Patient sent to [facility] for further evaluation and treatment 2- EKG 3- labs 4- CXR
[2019-02-04 22:51] LABS: Basophils # (Auto) 0.1 K/mm3 (0.0-0.1); Basophils % (Auto) 0.6 % (0.0-1.8); Eosinophils # (Auto) 0.1 K/mm3 (0.0-0.4); Hemoglobin 14.8 gm/dl (10.1-14.3); Lymphocytes # (Auto) 3.1 K/mm3 (1.2-5.4); Lymphocytes % (Auto) 30.9 % (13.4-35.0); Mean Corpuscular HGB Conc 35 % (30-34); Mean Corpuscular Volume 94 fl (79-97); Monocytes # (Auto) 0.7 K/mm3 (0.0-0.8); Monocytes % (Auto) 7.3 % (0.0-7.3); Platelet Count 288 K/mm3 (140-440); Red Blood Count 4.58 M/mm3 (3.65-5.03); Red Cell Distribution Width 13.7 % (13.2-15.2)
[2019-02-04 23:02] LABS: INR 0.96 (0.87-1.13)
[2019-02-04 23:03] LABS: Partial Thromboplastin Time 28.1 Sec. (24.2-36.6)
[2019-02-04 23:10] LABS: Alanine Aminotransferase 13 units/L (7-56); Albumin 4.4 g/dL (3.9-5); BUN/Creatinine Ratio 19; Blood Urea Nitrogen 17 mg/dL (7-17); Calcium 9.4 mg/dL (8.4-10.2); Hemolysis Index 32
--- NOTE | 2019-02-04 23:57 | XRay Report ---
CHEST 2 VIEWS 2316 INDICATION / CLINICAL INFORMATION: Chest Pain COMPARISON: 06/08/2018 FINDINGS: SUPPORT DEVICES: None. HEART / MEDIASTINUM: No significant abnormality. LUNGS / PLEURA: No significant pulmonary or pleural abnormality. No pneumothorax. ADDITIONAL FINDINGS: No significant additional findings. IMPRESSION: No significant acute abnormality Signer Name: Woodrow Navas MD Signed: 02/04/2019 11:52 PM Workstation Name: [id number]
--- NOTE | 2019-02-05 00:11 | Emergency Department Report ---
ED Chest Pain HPI - General Chief Complaint: Chest Pain Stated Complaint: KARISHMA Time Seen by Provider: 02/04/19 22:08 Source: patient, EMS Mode of arrival: Ambulatory Limitations: No Limitations - History of Present Illness Initial Comments: 63-year-old female with a past medical history of manic depression, broke bronchitis, COPD presents emergency department complaining of progressively worsening dyspnea for the last 2 months and chest pain which started today. Chest pain is worse with exertion but also worsens her dyspnea. Portable swelling to the lower extremity, no fever, chills, sweats, no hemoptysis no hematemesis or hematochezia. She denies trauma MD Complaint: chest pain -: Gradual Pain Location: substernal, left chest Pain Radiation: none Severity: mild Quality: aching Consistency: constant Improves With: nothing Worsens With: nothing re: dyspnea. denies: vomting, diaphoresis, sense of impending doom Other Symptoms: denies: fever, syncope, acid taste in mouth, leg swelling, palpitations, burping Treatments Prior to Arrival: none - Related Data On Oral Contraceptives: No Previous Rx's Medication Instructions Recorded Last Taken Type ALBUTEROL Inhaler (OR & NICU) 2 puff IH QID PRN 30 Days 06/10/18 Unknown Rx [Proair] inhalation Nitrofurantoin [place]/M-Cryst 100 mg PO Q12HR #10 capsule 06/10/18 Unknown Rx [Macrobid CAP] Allergies Allergy/AdvReac Type Severity Reaction Status Date / Time cephalexin monohydrate Allergy Rash Verified 05/28/16 11:09 [From Keflex] aripiprazole [From Abilify] AdvReac "tardive Verified 05/28/16 11:09 dyskinesia" haloperidol [From Haldol] AdvReac pain Verified 05/28/16 11:09 haloperidol lactate AdvReac pain Verified 05/28/16 11:09 [From Haldol] lisinopril AdvReac "it hurts Verified 05/28/16 11:09 my head" lithium AdvReac "It makes Verified 05/28/16 11:09 me mad" Phenothiazines AdvReac pain Verified 05/28/16 11:09 quetiapine fumarate AdvReac pain Verified 05/28/16 11:09 [From Seroquel] risperidone [From Risperdal] AdvReac tardive Verified 05/28/16 11:09 dyskinesia steroids Allergy Unknown Uncoded 05/28/16 11:09 Heart Score - HEART Score History: Slightly suspicious EKG: Non-specific Age: 45-65 Risk factors: No known risk factors Troponin: < normal limit HEART Score: 2 ED Review of Systems ROS: Stated complaint: KARISHMA Other details as noted in HPI Comment: All other systems reviewed and negative ED Past Medical Hx - Past Medical History Previous Medical History?: Yes Hx Congestive Heart Failure: No Hx Diabetes: No Hx Kidney Stones: Yes Hx Psychiatric Treatment: Yes (manic depression) Hx Asthma: Yes Hx COPD: Yes Additional medical history: bronchitis. neurogenic bladder. Multiple prior UTIs and kidney stone - Surgical History Past Surgical History?: Yes Additional Surgical History: hysterectomy. hemorrhoid - Social History Smoking Status: Current Every Day Smoker Substance Use Type: None - Medications Home Medications: Home Medications Medication Instructions Recorded Confirmed Last Taken Type ALBUTEROL Inhaler (OR & NICU) 2 puff IH QID PRN 30 Days 06/10/18 Unknown Rx [Proair] inhalation Nitrofurantoin [place]/M-Cryst 100 mg PO Q12HR #10 capsule 06/10/18 Unknown Rx [Macrobid CAP] ED Physical Exam - General Limitations: No Limitations General appearance: alert, in no apparent distress - Head Head exam: Present: atraumatic, normocephalic - Eye Eye exam: Present: normal appearance, PERRL, EOMI Pupils: Present: normal accommodation - ENT ENT exam: Present: mucous membranes moist, other (severe dental erosion and sit and several fractures noted there is some gingival erythema noted airway patent, uvula are midline no lymphadenopathy is appreciated.) - Neck Neck exam: Present: normal inspection. Absent: meningismus, lymphadenopathy, thyromegaly - Respiratory Respiratory exam: Present: normal lung sounds bilaterally. Absent: respiratory distress, wheezes, rales, rhonchi, chest wall tenderness, accessory muscle use, decreased breath sounds - Cardiovascular Cardiovascular Exam: Present: regular rate, normal rhythm. Absent: systolic murmur, diastolic murmur, rubs, gallop - GI/Abdominal GI/Abdominal exam: Present: soft, normal bowel sounds - Extremities Exam Extremities exam: Present: normal inspection, full ROM, normal capillary refill. Absent: tenderness, pedal edema, joint swelling - Back Exam Back exam: Present: normal inspection. Absent: CVA tenderness (R), CVA tenderness (L), vertebral tenderness - Neurological Exam Neurological exam: Present: alert, oriented X3, CN II-XII intact, normal gait - Psychiatric Psychiatric exam: Present: normal affect, normal mood. Absent: anxious, flat affect, manic, homicidal ideation - Skin Skin exam: Present: warm, dry, intact, normal color. Absent: rash, cyanosis, diaphoretic, erythema, petechiae, pallor, abrasion ED Course Vital Signs 02/04/19 02/04/19 22:13 23:20 Temperature 97.9 F 97.6 F Pulse Rate 95 H 94 H Respiratory 18 18 Rate Blood Pressure 156/77 Blood Pressure 133/82 [Left] O2 Sat by Pulse 96 97 Oximetry - Consultations Consultation #1: 02/05/19 01:36 Case discussed with hospitalist for admission patient with normal location will come see Mrs. Diaz for admission. Case is also discussed with my attending was aware of the admission and agrees with the plan AYAAN score - Ayaan Score Age > 65: (0) No Aspirin use within the Past 7 Days: (0) No 3 or more CAD Risk Factors: (0) No 2 or more Angina events in past 24 hrs: (1) Yes Known CAD with more than 50% Stenosis: (0) No Elevated Cardiac Markers: (0) No ST Deviation Greater than 0.5mm: (0) No AYAAN Score: 1 ED Medical Decision Making - Lab Data Result diagrams: 02/04/19 22:27 02/04/19 22:27 - EKG Data EKG shows normal: sinus rhythm Rate: normal - EKG Data When compared to previous EKG there are: no significant change Interpretation: no acute changes - Medical Decision Making 63-year-old female with many depression presenting with chest pain and shortness of breath with normal amateur findings and normal chest x-ray EKG. Vital signs are stable she is alert and oriented overdoes have some dyspnea with exertion. EKG heart rate is 81 no J-point elevation questionable atrial fibrillation. Critical care attestation.: If time is entered above; I have spent that time in minutes in the direct care of this critically ill patient, excluding procedure time. ED Disposition Clinical Impression: Chest pain Disposition: OP ADMIT IP TO THIS HOSP Is pt being admited?: Yes Does the pt Need Aspirin: Yes Condition: Stable Instructions: Chest Pain (ED)
[2019-02-05] MEDS ORDERED: MORPHINE 2 MG/1 ML INJ IV PRN (02:02)
[2019-02-05] MEDS ORDERED: NITROGLYCERIN 0.4 MG TAB SUBL SL PRN (02:02)
--- NOTE | 2019-02-05 02:22 | History and Physical Report ---
History of Present Illness Date of examination: 02/05/19 Date of admission: 02/05/19 Chief complaint: Chest pain History of present illness: Pt is a 63-year-old female with PMHx of COPD/asthma, manic depression, recurrent bronchitis, tobacco used disorder who presents to the ER with c/o chest pain x 1 day. Pt states that the pain is constant, located in the middle of her chest associated with SOB. Pt also reports that she has been having progressive SOB and a cough for the last 2 months. Pt reports that she smokes 1-2 pack of cigarette per day, she had not been taking any of her medication for some times. Pt is homeless, she appears ill, skin is flushed, swelling in bilateral lower extremities. Pt reports cough and SOB, she denies recent illness, she denies sweating, denies nausea, denies vomiting, denies fever, denies chills. In the ER, he EKG was abnormal, first CE was negative, she is admitted for further evaluation of her chest pain. Past History Past Medical History: CAD, COPD, hypertension Past Surgical History: No surgical history Social history: no significant social history Family history: no significant family history Medications and Allergies Allergies Allergy/AdvReac Type Severity Reaction Status Date / Time cephalexin monohydrate Allergy Rash Verified 05/28/16 11:09 [From Keflex] aripiprazole [From Abilify] AdvReac "tardive Verified 05/28/16 11:09 dyskinesia" haloperidol [From Haldol] AdvReac pain Verified 05/28/16 11:09 haloperidol lactate AdvReac pain Verified 05/28/16 11:09 [From Haldol] lisinopril AdvReac "it hurts Verified 05/28/16 11:09 my head" lithium AdvReac "It makes Verified 05/28/16 11:09 me mad" Phenothiazines AdvReac pain Verified 05/28/16 11:09 quetiapine fumarate AdvReac pain Verified 05/28/16 11:09 [From Seroquel] risperidone [From Risperdal] AdvReac tardive Verified 05/28/16 11:09 dyskinesia steroids Allergy Unknown Uncoded 05/28/16 11:09 Exam - Constitutional Vitals: Temp Pulse Resp BP Pulse Ox 97.6 F 94 H 18 133/82 97 02/04/19 23:20 02/04/19 23:20 02/04/19 23:20 02/04/19 23:20 02/04/19 23:20 General appearance: Present: no acute distress - EENT Eyes: Present: EOM intact ENT: hearing intact - Neck Neck: Present: normal ROM - Respiratory Respiratory effort: normal Respiratory: bilateral: diminished - Cardiovascular Rhythm: regular - Extremities Extremities: no ischemia Peripheral Pulses: within normal limits - Abdominal General gastrointestinal: Present: soft, non-tender Female genitourinary: Present: deferred - Rectal Rectal Exam: deferred - Integumentary Integumentary: Present: warm, dry - Musculoskeletal Musculoskeletal: strength equal bilaterally - Psychiatric Psychiatric: cooperative - Neurologic Neurologic: moves all extremities Results - Labs CBC & Chem 7: 02/04/19 22:27 02/04/19 22:27 Labs: Laboratory Last Values WBC 10.0 K/mm3 (4.5-11.0) 02/04/19 22:27 RBC 4.58 M/mm3 (3.65-5.03) 02/04/19 22:27 Hgb 14.8 gm/dl (10.1-14.3) H 02/04/19 22:27 Hct 43.0 % (30.3-42.9) H 02/04/19 22:27 MCV 94 fl (79-97) 02/04/19 22:27 MCH 32 pg (28-32) 02/04/19 22:27 MCHC 35 % (30-34) H 02/04/19 22:27 RDW 13.7 % (13.2-15.2) 02/04/19 22:27 Plt Count 288 K/mm3 (140-440) 02/04/19 22:27 Lymph % (Auto) 30.9 % (13.4-35.0) 02/04/19 22:27 [place] % (Auto) 7.3 % (0.0-7.3) 02/04/19 22:27 Eos % (Auto) 1.0 % (0.0-4.3) 02/04/19 22:27 Baso % (Auto) 0.6 % (0.0-1.8) 02/04/19 22:27 Lymph # 3.1 K/mm3 (1.2-5.4) 02/04/19 22:27 [place] # 0.7 K/mm3 (0.0-0.8) 02/04/19 22:27 Eos # 0.1 K/mm3 (0.0-0.4) 02/04/19 22:27 Baso # 0.1 K/mm3 (0.0-0.1) 02/04/19 22:27 Seg Neutrophils % 60.2 % (40.0-70.0) 02/04/19 22:27 Seg Neutrophils # 6.0 K/mm3 (1.8-7.7) 02/04/19 22:27 PT 12.7 Sec. (12.2-14.9) 02/04/19 22:27 INR 0.96 (0.87-1.13) 02/04/19 22:27 APTT 28.1 Sec. (24.2-36.6) 02/04/19 22:27 Sodium 139 mmol/L (137-145) 02/04/19 22:27 Potassium 3.9 mmol/L (3.6-5.0) 02/04/19 22:27 Chloride 97.3 mmol/L (98-107) L 02/04/19 22:27 Carbon Dioxide 27 mmol/L (22-30) 02/04/19 22:27 Anion Gap 19 mmol/L 02/04/19 22:27 BUN 17 mg/dL (7-17) 02/04/19 22:27 Creatinine 0.9 mg/dL (0.7-1.2) 02/04/19 22:27 Estimated GFR > 60 ml/min 02/04/19 22:27 BUN/Creatinine Ratio 19 % 02/04/19 22:27 Glucose 118 mg/dL (65-100) H 02/04/19 22:27 Calcium 9.4 mg/dL (8.4-10.2) 02/04/19 22:27 Total Bilirubin 0.30 mg/dL (0.1-1.2) 02/04/19 22:27 AST 20 units/L (5-40) 02/04/19 22:27 ALT 13 units/L (7-56) 02/04/19 22:27 Alkaline Phosphatase 75 units/L (35-129) 02/04/19 22:27 Troponin T < 0.010 ng/mL (0.00-0.029) 02/05/19 00:36 Total Protein 7.7 g/dL (6.3-8.2) 02/04/19 22:27 Albumin 4.4 g/dL (3.9-5) 02/04/19 22:27 Albumin/Globulin Ratio 1.3 % 02/04/19 22:27 Assessment and Plan Assessment and plan: 1. Chest pain r/o ACS 2. Accelerated HTN 3. CAD 4. COPD/asthma 6. H/o Manic depression Plan: Pt is admitted for medtele for chest pain Continue cardiac monitoring Lexican stress test in am Continue CE q6 hrs x 2 Lipid panel Starts aspirin, beta paty Resume home meds Advance Directives: Yes VTE prophylaxis?: Chemical Plan of care discussed with patient/family: Yes
[2019-02-05] MEDS ORDERED: ACETAMINOPHEN 325 MG TAB PO PRN (02:56)
[2019-02-05] MEDS ORDERED: ONDANSETRON 4 MG/2 ML INJ IV PRN (02:56)
[2019-02-05 04:20] LABS: Chol/HDL Ratio 3.3 %
[2019-02-05] MEDS ORDERED: REGADENOSON 0.4 MG/5 ML INJ IV ONE ×2 (06:42→06:56)
--- NOTE | 2019-02-05 09:11 | Consultation ---
History of Present Illness Consult date: 02/05/19 Consult reason: chest pain History of present illness: Pt is a 63-year-old female with PMHx of COPD/asthma, manic depression, recurrent bronchitis, tobacco used disorder who presented to the ER with c/o chest pain x 1 day, constant, located in the middle of her chest associated with SOB. Pt also reports that she has been having progressive SOB and a cough for the last 2 months. Pt reports that she smokes 1-2 pack of cigarette per day. she had not been taking any of her medication. Pt is homeless, she appears ill. Patient denies orthopnea, pnd, palpitations, dizziness or syncope. Past History Past Medical History: CAD, COPD, hypertension Past Surgical History: No surgical history Social history: no significant social history Family history: no significant family history Medications and Allergies Allergies Allergy/AdvReac Type Severity Reaction Status Date / Time cephalexin monohydrate Allergy Rash Verified 05/28/16 11:09 [From Keflex] aripiprazole [From Abilify] AdvReac "tardive Verified 05/28/16 11:09 dyskinesia" haloperidol [From Haldol] AdvReac pain Verified 05/28/16 11:09 haloperidol lactate AdvReac pain Verified 05/28/16 11:09 [From Haldol] lisinopril AdvReac "it hurts Verified 05/28/16 11:09 my head" lithium AdvReac "It makes Verified 05/28/16 11:09 me mad" Phenothiazines AdvReac pain Verified 05/28/16 11:09 quetiapine fumarate AdvReac pain Verified 05/28/16 11:09 [From Seroquel] risperidone [From Risperdal] AdvReac tardive Verified 05/28/16 11:09 dyskinesia steroids Allergy Unknown Uncoded 05/28/16 11:09 Home Medications Medication Instructions Recorded Confirmed Last Taken Type Aspirin EC [Halfprin EC] 81 mg PO QDAY #30 tablet. 02/05/19 Unknown Rx Nitroglycerin [Nitrostat] 0.4 mg SL Q5M PRN #30 tablet 02/05/19 Unknown Rx Pantoprazole [Protonix TAB] 40 mg PO QDAY #30 tablet 02/05/19 Unknown Rx Pravastatin [Pravachol] 20 mg PO QHS #30 tablet 02/05/19 Unknown Rx Active Meds: Active Medications Acetaminophen (Tylenol) 650 mg PO Q4H PRN PRN Reason: Pain MILD(1-3)/Fever >100.5/HURLEY Aspirin (Ecotrin) 325 mg PO QDAY AJAY Atorvastatin Calcium (Lipitor) 40 mg PO QHS AJAY Morphine Sulfate (Morphine) 2 mg IV Q5MIN PRN PRN Reason: Chest Pain unrelieved by NTG Nitroglycerin (Nitrostat) 0.4 mg SL Q5M PRN PRN Reason: Chest Pain Ondansetron HCl (Zofran) 4 mg IV Q8H PRN PRN Reason: Nausea And Vomiting Pantoprazole Sodium (Protonix) 40 mg PO QDAY AJAY Sodium Chloride (Sodium Chloride Flush Syringe 10 Ml) 10 ml IV PRN PRN PRN Reason: LINE FLUSH Sodium Chloride (Sodium Chloride Flush Syringe 10 Ml) 10 ml IV BID AJAY Sodium Chloride (Sodium Chloride Flush Syringe 10 Ml) 10 ml IV PRN PRN PRN Reason: LINE FLUSH Physical Examination Vital Signs Temp Pulse Resp BP Pulse Ox 97.9 F 95 H 18 156/77 96 02/04/19 22:13 02/04/19 22:13 02/04/19 22:13 02/04/19 22:13 02/04/19 22:13 General appearance: no acute distress HEENT: Positive: PERRL Cardiac: Positive: Reg Rate and Rhythm, S1/S2 Lungs: Positive: Normal Exam Neuro: Positive: Grossly Intact Abdomen: Positive: Soft Extremities: Present: normal Results 02/04/19 22:27 02/04/19 22:27 Cardiac Enzymes 02/04/19 Range/Units 22:27 AST 20 (5-40) units/L Coagulation 02/04/19 Range/Units 22:27 PT 12.7 (12.2-14.9) Sec. INR 0.96 (0.87-1.13) APTT 28.1 (24.2-36.6) Sec. Lipids 02/05/19 Range/Units 03:33 Triglycerides 103 (2-149) mg/dL Cholesterol 195 (50-199) mg/dL HDL Cholesterol 59 (40-59) mg/dL Cholesterol/HDL Ratio 3.30 % CBC 02/04/19 Range/Units 22:27 WBC 10.0 (4.5-11.0) K/mm3 RBC 4.58 (3.65-5.03) M/mm3 Hgb 14.8 H (10.1-14.3) gm/dl Hct 43.0 H (30.3-42.9) % Plt Count 288 (140-440) K/mm3 Lymph # 3.1 (1.2-5.4) K/mm3 [place] # 0.7 (0.0-0.8) K/mm3 Eos # 0.1 (0.0-0.4) K/mm3 Baso # 0.1 (0.0-0.1) K/mm3 Comprehensive Metabolic Panel 02/04/19 Range/Units 22:27 Sodium 139 (137-145) mmol/L Potassium 3.9 (3.6-5.0) mmol/L Chloride 97.3 L (98-107) mmol/L Carbon Dioxide 27 (22-30) mmol/L BUN 17 (7-17) mg/dL Creatinine 0.9 (0.7-1.2) mg/dL Glucose 118 H (65-100) mg/dL Calcium 9.4 (8.4-10.2) mg/dL AST 20 (5-40) units/L ALT 13 (7-56) units/L Alkaline Phosphatase 75 (35-129) units/L Total Protein 7.7 (6.3-8.2) g/dL Albumin 4.4 (3.9-5) g/dL Assessment and Plan 1. Chest pain r/o ACS - cardiac enzymes negative. Risk factors include HTN. Patient planned for lexiscan, but refused exam this morning. Recommend medical therapy. check echo. 2. Accelerated HTN - maximize antihypertensive therapy 3. CAD - recommend medical therapy as patient is refusing workup 4. COPD/asthma - management per primary 6. H/o Manic depression
[2019-02-05 09:54] VITALS: BP 92/34
[2019-02-05] MEDS ORDERED: PANTOPRAZOLE 40 MG TAB PO SCH (10:00)
--- NOTE | 2019-02-05 10:19 | Discharge Summary ---
Providers - Providers Date of Admission: 02/05/19 02:56 Attending physician: YEMI PIERCE MD 02/05/19 Consult to Cardiac Rehabilitation [CONS] Routine Reason For Exam: Phase I 02/05/19 02:03 Consult to Cardiology [CONS] Routine Consulting Provider: ODETTE CAMPOS Reason For Exam: chest pain Primary care physician: [facility] Hospitalization Condition: Stable Hospital course: 63-year-old lady with past medical history of bipolar disorder, hypertension presented to the hospital complaining of chest pain. Active ongoing smoking. -The patient was offered a stress test which he adamantly refused. Stating that she wanted to leave. Therefore cardiology decided to treat her medically, therefore she received medications, despite multiple conversations she was still adamantly against getting a stress test stating that she had things to do. Therefore she was discharged Tobacco abuse/dependence Smoking cessation counseling performed for 10 minutes, nicotine patches when necessary -Preventative health counseling performed for 17 minutes Diagnosis Chest pain likely due to hypertensive urgency and smoking Tobacco abuse/dependence Hypertensive urgency Bipolar disorder Nonadherence to treatment medications Disposition: TO HOME OR SELFCARE Time spent for discharge: 35 minutes Core Measure Documentation - Palliative Care Palliative Care/ Comfort Measures: Not Applicable - Core Measures Any of the following diagnoses?: none Exam - Constitutional Vitals: Temp Pulse Resp BP Pulse Ox 98.0 F 77 18 92/34 99 02/05/19 08:04 02/05/19 05:42 02/05/19 08:04 02/05/19 08:04 02/05/19 05:42 General appearance: Present: no acute distress, well-nourished - EENT Eyes: Present: PERRL ENT: hearing intact, clear oral mucosa - Neck Neck: Present: supple, normal ROM - Respiratory Respiratory effort: normal Respiratory: bilateral: CTA - Cardiovascular Heart Sounds: Present: S1 & S2. Absent: rub, click - Extremities Extremities: pulses symmetrical, No edema Peripheral Pulses: within normal limits - Abdominal General gastrointestinal: Present: soft, non-tender, non-distended, normal bowel sounds Female genitourinary: Present: normal - Integumentary Integumentary: Present: clear, warm, dry - Musculoskeletal Musculoskeletal: gait normal, strength equal bilaterally - Psychiatric Psychiatric: appropriate mood/affect, intact judgment & insight - Neurologic Neurologic: CNII-XII intact, moves all extremities Plan Follow up with: PRIMARY CARE,MD [Primary Care Provider] - 3-5 Days Prescriptions: Pravastatin [Pravachol] 20 mg PO QHS #30 tablet Aspirin EC [Halfprin EC] 81 mg PO QDAY #30 tablet. Nitroglycerin [Nitrostat] 0.4 mg SL Q5M PRN #30 tablet PRN Reason: Chest Pain Pantoprazole [Protonix TAB] 40 mg PO QDAY #30 tablet
[2019-02-05] MEDS ORDERED: FLU VACC QUAD 2019-20 (3 YR UP)/PF 60 MCG/0.5 ML SYRINGE IM ONE (12:00)
[2019-02-06] MEDS ORDERED: ASPIRIN EC 325 MG TAB PO SCH (10:00)
== END 2019-02-05 16:20 | disposition home or self-care (01) ==
LOC: ED 21:59 → 4A 02-05 02:56
PROVIDERS: ADMIT Internal Medicine; ATTEND Internal Medicine
DX: R07.89 Other chest pain (principal); J44.9 Chronic obstructive pulmonary disease, unspecified; I10 Essential (primary) hypertension; I25.10 Atherosclerotic heart disease of native coronary artery without angina pectoris; F31.9 Bipolar disorder, unspecified; F17.200 Nicotine dependence, unspecified, uncomplicated; Z71.6 Tobacco abuse counseling; Z87.442 Personal history of urinary calculi; Z90.710 Acquired absence of both cervix and uterus; Z79.82 Long term (current) use of aspirin; Z79.899 Other long term (current) drug therapy; Z88.1 Allergy status to other antibiotic agents; Z88.8 Allergy status to other drugs, medicaments and biological substances
CPT/HCPCS: 36415; 71046; 80053; 80061; 84484; 85025; 85610; 85730; 90686; 93005; 93010; 99284; 99406; G0378; 90471; G0008; J2785

== ENCOUNTER 2019-05-15 01:58 | Emergency (ER) | payer MEDICARE ==
[2019-05-15] MEDS ORDERED: ASPIRIN 325 MG TAB PO ONE (02:54)
--- NOTE | 2019-05-15 03:46 | XRay Report ---
CHEST 1 VIEW 05/15/2019 3:16 AM INDICATION / CLINICAL INFORMATION: Chest Pain. COMPARISON: 2 views of the chest from 02/04/2019. FINDINGS: SUPPORT DEVICES: None. HEART / MEDIASTINUM: No significant abnormality. LUNGS / PLEURA: No significant pulmonary or pleural abnormality. No pneumothorax. ADDITIONAL FINDINGS: No significant additional findings. IMPRESSION: 1. No acute abnormality of the chest. Signer Name: Hao Arora MD Signed: 05/15/2019 3:42 AM Workstation Name: [id number]
[2019-05-15 03:59] LABS: Basophils # (Auto) 0.1 K/mm3 (0.0-0.1); Basophils % (Auto) 0.6 % (0.0-1.8); Eosinophils # (Auto) 0.6 K/mm3 (0.0-0.4); Eosinophils % (Auto) 7.2 % (0.0-4.3); Hematocrit 41.5 % (30.3-42.9); Lymphocytes # (Auto) 2.3 K/mm3 (1.2-5.4); Lymphocytes % (Auto) 26.8 % (13.4-35.0); Mean Corpuscular HGB Conc 34 % (30-34); Mean Corpuscular Volume 94 fl (79-97); Monocytes # (Auto) 0.6 K/mm3 (0.0-0.8); Monocytes % (Auto) 6.3 % (0.0-7.3); Platelet Count 310 K/mm3 (140-440); Red Blood Count 4.44 M/mm3 (3.65-5.03); Red Cell Distribution Width 13.9 % (13.2-15.2)
[2019-05-15 04:18] LABS: BUN/Creatinine Ratio 16; Blood Urea Nitrogen 14 mg/dL (7-17); Calcium 9.5 mg/dL (8.4-10.2); Hemolysis Index 15
[2019-05-15] MEDS ORDERED: IPRATROPIUM 0.02% NEBU 2.5 ML IH ONE (06:04)
[2019-05-15] MEDS ORDERED: ALBUTEROL 2.5 MG/3 ML NEBU IH ONE (06:04)
[2019-05-15] MEDS ORDERED: ASPIRIN 325 MG TAB ONE (06:26)
--- NOTE | 2019-05-15 06:33 | Emergency Department Report ---
HPI - General Chief Complaint: Adult Asthma Time Seen by Provider: 05/15/19 05:56 - HPI HPI: 64-year-old female presents to the emergency department with complaint of a 3 day history of some shortness of breath, wheezing, coughing and chest tightness. The patient says that she has a history of asthma, COPD, bronchitis and is not oxygen dependent home. She also has a history of kidney stones, manic-depression and a neurogenic bladder. Patient has not taken anything for her symptoms prior to presentation. She denies any tobacco or illicit drug use. No recent travel or sick contacts at home. She denies any fever, lower extremity swelling, back pain, diaphoresis. ED Past Medical Hx - Past Medical History Previous Medical History?: Yes Hx Congestive Heart Failure: No Hx Diabetes: No Hx Kidney Stones: Yes Hx Psychiatric Treatment: Yes (manic depression) Hx Asthma: Yes Hx COPD: Yes Additional medical history: bronchitis. neurogenic bladder. Multiple prior UTIs and kidney stone - Surgical History Past Surgical History?: Yes Additional Surgical History: hysterectomy. hemorrhoid - Social History Smoking Status: Never Smoker Substance Use Type: None - Medications Home Medications: Home Medications Medication Instructions Recorded Confirmed Last Taken Type Aspirin EC [Halfprin EC] 81 mg PO QDAY #30 tablet. 02/05/19 Unknown Rx Nitroglycerin [Nitrostat] 0.4 mg SL Q5M PRN #30 tablet 02/05/19 Unknown Rx Pantoprazole [Protonix TAB] 40 mg PO QDAY #30 tablet 02/05/19 Unknown Rx Pravastatin [Pravachol] 20 mg PO QHS #30 tablet 02/05/19 Unknown Rx Albuterol INH(or & Nicu Only) 2 puff IH QID PRN #1 inh 05/15/19 Unknown Rx [ProAir HFA Inhaler] ED Review of Systems ROS: Stated complaint: ASTHMA/CHEST PAIN Other details as noted in HPI Comment: All other systems reviewed and negative Constitutional: denies: chills, fever Eyes: denies: eye pain, vision change ENT: denies: ear pain, throat pain Respiratory: cough, shortness of breath, wheezing Cardiovascular: chest pain (tightness). denies: edema Gastrointestinal: denies: abdominal pain, vomiting Genitourinary: denies: dysuria, discharge Musculoskeletal: denies: back pain, arthralgia Skin: denies: rash, lesions Neurological: denies: headache, weakness Physical Exam - Physical Exam Vital Signs: Vital Signs 05/15/19 05/15/19 05/15/19 02:12 06:15 06:18 Temperature 98.3 F Pulse Rate 112 H 74 Pulse Rate [ Posterior] Respiratory 20 16 20 Rate Respiratory Rate [Posterior ] Blood Pressure 156/82 120/54 O2 Sat by Pulse 93 96 95 Oximetry 05/15/19 06:30 Temperature Pulse Rate Pulse Rate [ 80 Posterior] Respiratory Rate Respiratory 18 Rate [Posterior ] Blood Pressure O2 Sat by Pulse Oximetry Physical Exam: GENERAL: The patient is well-developed well-nourished. HEENT: Normocephalic. Atraumatic. Patient has moist mucous membranes. EYES: Extraocular motions are intact. NECK: Supple. Trachea is midline. CHEST/LUNGS: Mild wheezing. Patient has a bronchospastic cough. No tachypnea or accessory muscle use. There is no respiratory distress noted. HEART/CARDIOVASCULAR: Regular. There is no tachycardia. There is no murmur. ABDOMEN: Abdomen is soft, nontender. Patient has normal bowel sounds. There is no abdominal distention. SKIN:Skin is warm and dry. NEURO: The patient is awake, alert, and oriented. The patient is cooperative. The patient has no focal neurologic deficits. Normal speech. MUSCULOSKELETAL: There is no tenderness or deformity. There is no evidence of acute injury. ED Course Vital Signs 05/15/19 05/15/19 05/15/19 02:12 06:15 06:18 Temperature 98.3 F Pulse Rate 112 H 74 Pulse Rate [ Posterior] Respiratory 20 16 20 Rate Respiratory Rate [Posterior ] Blood Pressure 156/82 120/54 O2 Sat by Pulse 93 96 95 Oximetry 05/15/19 06:30 Temperature Pulse Rate Pulse Rate [ 80 Posterior] Respiratory Rate Respiratory 18 Rate [Posterior ] Blood Pressure O2 Sat by Pulse Oximetry ED Medical Decision Making - Lab Data Result diagrams: 05/15/19 03:29 05/15/19 03:29 - EKG Data -: EKG Interpreted by Me EKG shows normal: sinus rhythm, axis, intervals, QRS complexes, ST-T waves Rate: normal - EKG Data When compared to previous EKG there are: no significant change Interpretation: unchanged when compared t (02/05/19) - Radiology Data Radiology results: report reviewed, image reviewed interpreted by me: Chest x-ray shows some hyperinflation of the lungs and flattening of the diaphragms consistent with COPD or emphysema. No pneumonia, pleural effusions, pneumothorax. CT angio chest INDICATION / CLINICAL INFORMATION: SOB, elevated dimer. TECHNIQUE: Axial CT images were obtained after injection of IV contrast using CTA protocol. 3 plane MIP / 3D reconstructions were produced. All CT scans at this location are performed using CT dose reduction for ALARA by means of automated exposure control. COMPARISON: CT abdomen and pelvis 12/11/2017. FINDINGS: Negative for aneurysm, dissection or pulmonary embolus. No mediastinal mass or adenopathy. The lungs contain mild/moderate emphysema. Negative for localized infiltrate or pleural fluid. Imaging of the upper abdomen demonstrates right renal scarring and a persistent 2.8 cm low density lesion at the right adrenal gland. IMPRESSION: 1. Negative for pulmonary embolus or pneumonia. 2. Mild/moderate emphysema. 3. Persistent right adrenal adenoma. 4. Stable right renal scarring. - Medical Decision Making This patient presents with the complaint of a three-day history of some wheezing, coughing, shortness of breath, and some chest tightness. The chest tightness appears more consistent with her asthma or COPD then chest pain associated with coronary artery disease. However the patient did have an EKG that was normal without ST elevation AL, ischemia or dysrhythmia. Chest x-ray showed some hyperinflation of the lungs consistent with emphysema/COPD but no pneumonia, pneumothorax, pleural effusions, or any other acute process. Labs were mostly unremarkable including CBC, metabolic panel, troponins 2 but she did have a slightly elevated and equivocal d-dimer level. For this reason she had a CT angiography of the chest that did not show any signs of pulmonary embolism, dissection, aneurysm or any other acute process. The patient is allergic to steroids but was given a breathing treatment with some improvement of her symptoms. The patient was seen sleeping and/or resting comfortably throughout most of her ED course. Vital signs have been stable throughout her ED course as well. For these reasons, the patient appears safe for discharge at this time. She has been given a prescription for an albuterol inhaler and multiple referrals for primary care physicians. She has also been instructed to return to the emergency department immediately with any worsening of her symptoms or any acute distress. - Differential Diagnosis COPD, asthma, pneumonia, PE, CHF Critical Care Time: No Critical care attestation.: If time is entered above; I have spent that time in minutes in the direct care of this critically ill patient, excluding procedure time. ED Disposition Clinical Impression: Acute exacerbation of COPD with asthma Disposition: TO HOME OR SELFCARE Is pt being admited?: No Condition: Stable Instructions: Asthma (ED), Chronic Obstructive Pulmonary Disease (ED) Additional Instructions: Please avoid any cigarettes or tobacco use. Please follow up with a primary care physician and I am giving you some referrals for local physicians and clinics. Return to the emergency Department with any worsening of your symptoms or any acute distress. Prescriptions: Albuterol INH(or & Nicu Only) [ProAir HFA Inhaler] 2 puff IH QID PRN #1 inh PRN Reason: Shortness Of Breath Referrals: HOLLIE HI MD [Staff Physician] - 2-3 Days [facility] [Outside] - 2-3 Days [facility] [Outside] - 2-3 Days [facility] [Outside] - 2-3 Days Time of Disposition: 08:36 Heart Score - HEART Score History: Slightly suspicious EKG: Normal Age: 45-65 Risk factors: 1-2 risk factors Troponin: < normal limit HEART Score: 2 - Critical Actions Critical Actions: 0-3 pts:0.9-1.7%risk of adverse cardiac event.Candidate for discharge
--- NOTE | 2019-05-15 08:13 | Cat Scan Report ---
CT angio chest INDICATION / CLINICAL INFORMATION: SOB, elevated dimer. TECHNIQUE: Axial CT images were obtained after injection of IV contrast using CTA protocol. 3 plane MIP / 3D rec onstructions were produced. All CT scans at this location are performed using CT dose reduction for A CAROL by means of automated exposure control. COMPARISON: CT abdomen and pelvis 12/11/2017. FINDINGS: Negative for aneurysm, dissection or pulmonary embolus. No mediastinal mass or adenopathy. The lungs contain mild/moderate emphysema. Negative for localized infiltrate or pleural fluid. Imaging of the upper abdomen demonstrates right renal scarring and a persistent 2.8 cm low density le francisco at the right adrenal gland. IMPRESSION: 1. Negative for pulmonary embolus or pneumonia. 2. Mild/moderate emphysema. 3. Persistent right adrenal adenoma. 4. Stable right renal scarring. Signer Name: Vipin Arenas MD Signed: 05/15/2019 8:09 AM Workstation Name: [id number]
[2019-05-15 08:30] LABS: Bilirubin,Urine NEG (Negative); Color,Urine Yellow (Yellow)
[2019-05-15 08:31] LABS: Bacteria,Urine 1+ /HPF (Negative); Blood,Urine SM (Negative); Protein,Urine <15 mg/dL mg/dL (Negative); Urobilinogen,Urine < 2.0 mg/dL (<2.0)
[2019-05-15 09:08] VITALS: BP 142/65
== END 2019-05-15 09:45 | disposition home or self-care (01) ==
LOC: ED 01:58
DX: J44.1 Chronic obstructive pulmonary disease with (acute) exacerbation (principal); F31.9 Bipolar disorder, unspecified; J40 Bronchitis, not specified as acute or chronic; Z87.442 Personal history of urinary calculi; Z90.710 Acquired absence of both cervix and uterus; Z79.899 Other long term (current) drug therapy; Z88.8 Allergy status to other drugs, medicaments and biological substances
CPT/HCPCS: 36415; 71045; 71275; 80048; 81001; 84484; 85025; 85379; 94640; 99285; Q9967; 94644

== ENCOUNTER 2019-05-24 20:07 | Emergency (ER) | payer MEDICARE ==
--- NOTE | 2019-05-24 22:04 | Emergency Department Report ---
{null, ED General Adult HPI - General Chief complaint: Back Pain/Injury Stated complaint: POSS BRONCHITIS/BACK PAIN Time Seen by Provider: 05/24/19 21:56 Source: EMS Mode of arrival: Stretcher Limitations: No Limitations - History of Present Illness Initial comments: 65-year-old female with past medical history of asthma, SVC reflux disease, HIV, COPD, renal calculi and neurogenic bladder presents emerged department complaining of right flank pain suspicious of a evolving urinary tract infection. Reports having some increased urinary urgency and sharp pain that is fluctuating up to the right flank area but denies any hematuria or lower abdominal pain. Reports no fever, chills, sweats no nausea vomiting or chest pain. She has been having a productive cough off and on for the last 2 weeks but no wheezing or dyspnea. Quality: aching Improves with: none Worsens with: none Associated Symptoms: denies: confusion, chest pain, headaches, loss of appetite, rash, shortness of breath, syncope - Related Data Previous Rx's Medication Instructions Recorded Last Taken Type Aspirin EC [Halfprin EC] 81 mg PO QDAY #30 tablet. 02/05/19 Unknown Rx Nitroglycerin [Nitrostat] 0.4 mg SL Q5M PRN #30 tablet 02/05/19 Unknown Rx Pantoprazole [Protonix TAB] 40 mg PO QDAY #30 tablet 02/05/19 Unknown Rx Pravastatin [Pravachol] 20 mg PO QHS #30 tablet 02/05/19 Unknown Rx Albuterol INH(or & Nicu Only) 2 puff IH QID PRN #1 inh 05/15/19 Unknown Rx [ProAir HFA Inhaler] Albuterol INH(or & Nicu Only) 1 puff IH Q4-6H PRN #1 inha 05/24/19 Unknown Rx [ProAir HFA Inhaler] Brompheniramine/Pseudoephed/Dm 5 ml PO Q6H PRN #240 syrup 05/24/19 Unknown Rx [Jrvxxnzfve-Klhlolmbouy-Gt Syr] Sulfamethoxazole/Trimethoprim 1 each PO BID #20 tablet 05/25/19 Unknown Rx [Bactrim DS TAB] Allergies Allergy/AdvReac Type Severity Reaction Status Date / Time cephalexin monohydrate Allergy Rash Verified 05/28/16 11:09 [From Keflex] aripiprazole [From Abilify] AdvReac "tardive Verified 05/28/16 11:09 dyskinesia" haloperidol [From Haldol] AdvReac pain Verified 05/28/16 11:09 haloperidol lactate AdvReac pain Verified 05/28/16 11:09 [From Haldol] lisinopril AdvReac "it hurts Verified 05/28/16 11:09 my head" lithium AdvReac "It makes Verified 05/28/16 11:09 me mad" Phenothiazines AdvReac pain Verified 05/28/16 11:09 quetiapine fumarate AdvReac pain Verified 05/28/16 11:09 [From Seroquel] risperidone [From Risperdal] AdvReac tardive Verified 05/28/16 11:09 dyskinesia steroids Allergy Unknown Uncoded 05/28/16 11:09 ED Review of Systems ROS: Stated complaint: POSS BRONCHITIS/BACK PAIN Other details as noted in HPI Comment: All other systems reviewed and negative ED Past Medical Hx - Past Medical History Previous Medical History?: Yes Hx Congestive Heart Failure: No Hx Diabetes: No Hx Kidney Stones: Yes Hx Psychiatric Treatment: Yes (manic depression) Hx Asthma: Yes Hx COPD: Yes Hx HIV: Yes Additional medical history: bronchitis. neurogenic bladder. Multiple prior UTIs and kidney stone - Surgical History Past Surgical History?: Yes Additional Surgical History: hysterectomy. hemorrhoid - Social History Smoking Status: Heavy Tobacco Smoker Substance Use Type: None - Medications Home Medications: Home Medications Medication Instructions Recorded Confirmed Last Taken Type Aspirin EC [Halfprin EC] 81 mg PO QDAY #30 tablet. 02/05/19 Unknown Rx Nitroglycerin [Nitrostat] 0.4 mg SL Q5M PRN #30 tablet 02/05/19 Unknown Rx Pantoprazole [Protonix TAB] 40 mg PO QDAY #30 tablet 02/05/19 Unknown Rx Pravastatin [Pravachol] 20 mg PO QHS #30 tablet 02/05/19 Unknown Rx Albuterol INH(or & Nicu Only) 2 puff IH QID PRN #1 inh 05/15/19 Unknown Rx [ProAir HFA Inhaler] Albuterol INH(or & Nicu Only) 1 puff IH Q4-6H PRN #1 inha 05/24/19 Unknown Rx [ProAir HFA Inhaler] Brompheniramine/Pseudoephed/Dm 5 ml PO Q6H PRN #240 syrup 05/24/19 Unknown Rx [Oiafjdvqfi-Evwnmpwspwq-Ba Syr] Sulfamethoxazole/Trimethoprim 1 each PO BID #20 tablet 05/25/19 Unknown Rx [Bactrim DS TAB] ED Physical Exam - General Limitations: No Limitations General appearance: alert, in no apparent distress - Head Head exam: Present: atraumatic, normocephalic - Eye Eye exam: Present: normal appearance, PERRL, EOMI Pupils: Present: normal accommodation - ENT ENT exam: Present: normal exam, normal orophraynx, mucous membranes moist, TM's normal bilaterally - Neck Neck exam: Present: normal inspection, full ROM - Respiratory Respiratory exam: Present: normal lung sounds bilaterally, rhonchi. Absent: respiratory distress, wheezes, rales, chest wall tenderness - Cardiovascular Cardiovascular Exam: Present: regular rate, normal rhythm. Absent: bradycardia, tachycardia, systolic murmur, diastolic murmur, rubs, gallop - GI/Abdominal GI/Abdominal exam: Present: soft, normal bowel sounds - Extremities Exam Extremities exam: Present: normal inspection, full ROM, normal capillary refill - Back Exam Back exam: Present: normal inspection, paraspinal tenderness. Absent: CVA tenderness (R), CVA tenderness (L), muscle spasm, vertebral tenderness - Neurological Exam Neurological exam: Present: alert, oriented X3, CN II-XII intact, normal gait - Psychiatric Psychiatric exam: Present: normal affect, normal mood - Skin Skin exam: Present: warm, dry, normal color, rash, other (Cerebral 1 cm to 2 cm sores with some scaling and some crusting in various the scattered around the body no pustules or discharge) ED Course Vital Signs 05/24/19 20:39 Temperature 98.7 F Pulse Rate 78 Respiratory 17 Rate Blood Pressure 135/73 O2 Sat by Pulse 98 Oximetry ED Medical Decision Making - EKG Data EKG shows normal: sinus rhythm Rate: normal - EKG Data Interpretation: no acute changes - Radiology Data Radiology results: report reviewed [facility] [address] [place] [address] XRay Report Signed Patient: PIPER VIDAL MR#: [id number] : 1955 Acct:[id number] Age/Sex: 64 / F ADM Date: 05/24/19 Loc: ED Attending Dr: Ordering Physician: DARLEEN MCINTOSH Date of Service: 05/24/19 Procedure(s): XR chest 1V ap Accession Number(s): [id number] cc: DARLEEN MCINTOSH Fluoro Time In Minutes: CHEST 1 VIEW INDICATION / CLINICAL INFORMATION: productive cough. COMPARISON: 05/15/19 FINDINGS: SUPPORT DEVICES: None. HEART / MEDIASTINUM: No significant abnormality. LUNGS / PLEURA: No significant pulmonary or pleural abnormality. No pneumothorax. ADDITIONAL FINDINGS: No significant additional findings. IMPRESSION: 1. No acute findings. No change. Signer Name: Michelet Copeland MD Signed: 05/24/2019 10:19 PM Workstation Name: [id number] Transcribed By: DT Dictated By: Anuj Copeland MD Electronically Authenticated By: Anuj Copeland MD Signed Date/Time: 05/24/192218 DD/ 18 TD/TT: - Medical Decision Making This patient presents to the emergency department with symptoms consistent with acute uncomplicated cystitis. No systemic symptoms. Not septic. She is well- appearing. Low suspicion for acute pyelonephritis given the lack of fever, CVA tenderness, or systemic features. Low suspicion for for kidney stone or infected stone. Not in age range for and her history and and presentation are complicated. No no indications for labs or imaging at this time. Critical care attestation.: If time is entered above; I have spent that time in minutes in the direct care of this critically ill patient, excluding procedure time. ED Disposition Clinical Impression: Bronchitis, UTI (urinary tract infection) Disposition: DC-01 TO HOME OR SELFCARE Is pt being admited?: No Does the pt Need Aspirin: No Condition: Stable Instructions: Chronic Bronchitis (ED) Prescriptions: Sulfamethoxazole/Trimethoprim [Bactrim DS TAB] 1 each PO BID #20 tablet Brompheniramine/Pseudoephed/Dm [Uijycllnqk-Ahrnuphmpkn-Wj Syr] 5 ml PO Q6H PRN #240 syrup PRN Reason: Cough Albuterol INH(or & Nicu Only) [ProAir HFA Inhaler] 1 puff IH Q4-6H PRN #1 inha PRN Reason: Cough Referrals: CARBUCCIA,HOLLIE, MD [Staff Physician] - 3-5 Days [facility] [Outside] - 3-5 Days }
--- NOTE | 2019-05-24 22:24 | XRay Report ---
{null, CHEST 1 VIEW INDICATION / CLINICAL INFORMATION: productive cough. COMPARISON: 05/15/19 FINDINGS: SUPPORT DEVICES: None. HEART / MEDIASTINUM: No significant abnormality. LUNGS / PLEURA: No significant pulmonary or pleural abnormality. No pneumothorax. ADDITIONAL FINDINGS: No significant additional findings. IMPRESSION: 1. No acute findings. No change. Signer Name: Michelet Copeland MD Signed: 05/24/2019 10:19 PM Workstation Name: [id number] }
[2019-05-25 00:51] LABS: Bacteria,Urine 1+ /HPF (Negative); Mucus,Urine 3+ /HPF
[2019-05-25 01:10] LABS: Bilirubin,Urine Negative (Negative); Color,Urine Yellow (Yellow)
[2019-05-25 01:11] LABS: Blood,Urine Negative (Negative)
[2019-05-25 01:32] VITALS: BP 110/65
== END 2019-05-25 01:50 | disposition home or self-care (01) ==
LOC: ED 20:07
DX: J40 Bronchitis, not specified as acute or chronic (principal); N39.0 Urinary tract infection, site not specified; F32.9 Major depressive disorder, single episode, unspecified; F17.200 Nicotine dependence, unspecified, uncomplicated; Z79.899 Other long term (current) drug therapy; Z88.8 Allergy status to other drugs, medicaments and biological substances
CPT/HCPCS: 71045; 81001; 87086

== ENCOUNTER 2019-05-27 12:15 | Emergency (ER) | payer MEDICARE ==
[2019-05-27 13:22] VITALS: BP 163/78
--- NOTE | 2019-05-27 13:34 | Emergency Department Report ---
Stated Complaint: BRONCHITIS Time Seen by Provider: 05/27/19 13:20 - HPI History of Present Illness: Patient is a 64-year-old female who is presenting with continued cough for the past several days. Patient is homeless and was diagnosed with bronchitis 2 days ago. Patient states she is still coughing. Patient also was noted in triage to have head lice and probable scabies. Patient is itching all over. - ROS Review of Systems: All other systems are reviewed and are negative - Exam Vital Signs: Vital Signs 05/27/19 12:23 Temperature 98.2 F Pulse Rate 78 Respiratory 16 Rate Blood Pressure 163/78 [Right] O2 Sat by Pulse 97 Oximetry Physical Exam: Patient's lungs are clear to auscultation she does not appear to be in any acute distress. insects on the back of her T-shirt near the base of the hairline. Patient also has a maculopapular rash on the hands and arms MSE screening note: Focused history and physical exam performed. Due to findings the following was ordered: ED Medical Decision Making - Medical Decision Making Patient is bronchitis was treated several days ago. Patient is to continue with medications. Patient given information on Elimite and [id number] lice treatment and she is discharged home. Patient does not have a medical emergency at this time. ED Disposition for MSE Clinical Impression: Bronchitis, Scabies Disposition: MED SCREENING EXAM-LEFT Is pt being admited?: No Does the pt Need Aspirin: No Condition: Stable Instructions: Acute Bronchitis (ED), Pediculosis (ED), Body Lice (ED), Permethrin (On the skin) Time of Disposition: 13:34
== END 2019-05-27 13:45 | disposition left against medical advice (07) ==
LOC: ED 12:15
DX: J40 Bronchitis, not specified as acute or chronic (principal); B86 Scabies; Z88.8 Allergy status to other drugs, medicaments and biological substances
CPT/HCPCS: 99282

== ENCOUNTER 2019-05-27 16:33 | Emergency (ER) | payer MEDICARE ==
--- NOTE | 2019-05-27 17:57 | Emergency Department Report ---
Blank Doc - Documentation Documentation: 64-year-old female that presents with URI symptoms and flank pains. This initial assessment/diagnostic orders/clinical plan/treatment(s) is/are subject to change based on patient's health status, clinical progression and re- assessment by fellow clinical providers in the ED. Further treatment and workup at subsequent clinical providers discretion. Patient/guardians urged not to elope from the ED as their condition may be serious if not clinically assessed and managed. Initial orders include: 1- Patient sent to [facility] for further evaluation and treatment 2- CXR 3- UA
--- NOTE | 2019-05-27 18:28 | XRay Report ---
CHEST 2 VIEWS INDICATION: cough. COMPARISON: 05/24/2019 FINDINGS: Support devices: None. Heart: Within normal limits. Lungs/pleura: No acute air space or interstitial disease. No pneumothorax. Additional findings: None. IMPRESSION: 1. No acute findings. Signer Name: Ceferino Valladares MD Signed: 05/27/2019 6:24 PM Workstation Name: [id number]
[2019-05-27 18:58] LABS: Bacteria,Urine 1+ /HPF (Negative); Bilirubin,Urine NEG (Negative); Blood,Urine NEG (Negative); Color,Urine Amber (Yellow); Mucus,Urine 2+ /HPF
[2019-05-27] MEDS ORDERED: traMADol 50 MG TAB PO ONE (21:09)
--- NOTE | 2019-05-27 21:45 | Emergency Department Report ---
ED General Adult HPI - General Chief complaint: Upper Respiratory Infection Stated complaint: BRONCHITIS/KIDNEY PAIN Time Seen by Provider: 05/27/19 17:55 Source: patient Mode of arrival: Ambulatory Limitations: No Limitations - History of Present Illness Initial comments: Ms. Diaz is a 64-year-old white female who history of bronchitis and UTI presents for cough nocturnal wheezing and dysuria x2 days. There is no fevers or chills. There is no nausea vomiting. Patient is ambulatory without shortness of breath no audible wheezing noticed today. Patient states she is out of her medications. Her symptoms are exacerbated by avoiding an environmental exposure. Her symptoms are relieved by nothing tried. Thre is no acute distress at this time. Onset/Timin -: days(s) Location: back (left flank ) Severity scale (0 -10): 4 Quality: burning Consistency: intermittent Improves with: none Worsens with: other (voiding ) Associated Symptoms: cough Treatments Prior to Arrival: none - Related Data Previous Rx's Medication Instructions Recorded Last Taken Type Aspirin EC [Halfprin EC] 81 mg PO QDAY #30 tablet. 02/05/19 Unknown Rx Nitroglycerin [Nitrostat] 0.4 mg SL Q5M PRN #30 tablet 02/05/19 Unknown Rx Pantoprazole [Protonix TAB] 40 mg PO QDAY #30 tablet 02/05/19 Unknown Rx Pravastatin [Pravachol] 20 mg PO QHS #30 tablet 02/05/19 Unknown Rx Albuterol INH(or & Nicu Only) 2 puff IH QID PRN #1 inh 05/15/19 Unknown Rx [ProAir HFA Inhaler] Albuterol INH(or & Nicu Only) 1 puff IH Q4-6H PRN #1 inha 05/24/19 Unknown Rx [ProAir HFA Inhaler] Brompheniramine/Pseudoephed/Dm 5 ml PO Q6H PRN #240 syrup 05/24/19 Unknown Rx [Ixmdqhrluq-Swgptjordik-Gl Syr] Sulfamethoxazole/Trimethoprim 1 each PO BID #20 tablet 05/25/19 Unknown Rx [Bactrim DS TAB] Acetaminophen [Tylenol] 650 mg PO QID #30 capsule 05/27/19 Unknown Rx Albuterol INH(or & Nicu Only) 2 puff IH QID PRN #8.5 gram 05/27/19 Unknown Rx [ProAir HFA Inhaler] Nitrofurantoin [place]/M-Cryst 100 mg PO BID 7 Days #14 capsule 05/27/19 Unknown Rx [Macrobid CAP] Permethrin 5% [Acticin 5% CREAM] 1 applicatio TP ONCE #1 tube 05/27/19 Unknown Rx predniSONE [Deltasone] 40 mg PO DAILY 5 Days #10 tablet 05/27/19 Unknown Rx Allergies Allergy/AdvReac Type Severity Reaction Status Date / Time cephalexin monohydrate Allergy Rash Verified 05/27/19 16:38 [From Keflex] aripiprazole [From Abilify] AdvReac "tardive Verified 05/27/19 16:38 dyskinesia" haloperidol [From Haldol] AdvReac pain Verified 05/27/19 16:38 haloperidol lactate AdvReac pain Verified 05/27/19 16:38 [From Haldol] lisinopril AdvReac "it hurts Verified 05/27/19 16:38 my head" lithium AdvReac "It makes Verified 05/27/19 16:38 me mad" Phenothiazines AdvReac pain Verified 05/27/19 16:38 quetiapine fumarate AdvReac pain Verified 05/27/19 16:38 [From Seroquel] risperidone [From Risperdal] AdvReac tardive Verified 05/27/19 16:38 dyskinesia steroids Allergy Unknown Uncoded 05/28/16 11:09 ED Review of Systems ROS: Stated complaint: BRONCHITIS/KIDNEY PAIN Other details as noted in HPI Constitutional: denies: chills, fever Eyes: denies: eye pain, eye discharge, vision change ENT: denies: ear pain, throat pain Respiratory: cough, wheezing. denies: shortness of breath Cardiovascular: denies: chest pain, palpitations Endocrine: no symptoms reported Gastrointestinal: denies: abdominal pain, nausea, vomiting, diarrhea Genitourinary: urgency, dysuria. denies: hematuria, discharge Musculoskeletal: as per HPI Skin: denies: rash, lesions Neurological: denies: headache, weakness, paresthesias Psychiatric: denies: anxiety, depression Hematological/Lymphatic: denies: easy bleeding, easy bruising ED Past Medical Hx - Past Medical History Hx Congestive Heart Failure: No Hx Diabetes: No Hx Kidney Stones: Yes Hx Psychiatric Treatment: Yes (manic depression) Hx Asthma: Yes Hx COPD: Yes Hx HIV: Yes Additional medical history: bronchitis. neurogenic bladder. Multiple prior UTIs and kidney stone - Surgical History Additional Surgical History: hysterectomy. hemorrhoid - Social History Smoking Status: Never Smoker Substance Use Type: None - Medications Home Medications: Home Medications Medication Instructions Recorded Confirmed Last Taken Type Aspirin EC [Halfprin EC] 81 mg PO QDAY #30 tablet. 02/05/19 Unknown Rx Nitroglycerin [Nitrostat] 0.4 mg SL Q5M PRN #30 tablet 02/05/19 Unknown Rx Pantoprazole [Protonix TAB] 40 mg PO QDAY #30 tablet 02/05/19 Unknown Rx Pravastatin [Pravachol] 20 mg PO QHS #30 tablet 02/05/19 Unknown Rx Albuterol INH(or & Nicu Only) 2 puff IH QID PRN #1 inh 05/15/19 Unknown Rx [ProAir HFA Inhaler] Albuterol INH(or & Nicu Only) 1 puff IH Q4-6H PRN #1 inha 05/24/19 Unknown Rx [ProAir HFA Inhaler] Brompheniramine/Pseudoephed/Dm 5 ml PO Q6H PRN #240 syrup 05/24/19 Unknown Rx [Bqeuoijinh-Btylbvvshmv-Oj Syr] Sulfamethoxazole/Trimethoprim 1 each PO BID #20 tablet 05/25/19 Unknown Rx [Bactrim DS TAB] Acetaminophen [Tylenol] 650 mg PO QID #30 capsule 05/27/19 Unknown Rx Albuterol INH(or & Nicu Only) 2 puff IH QID PRN #8.5 gram 05/27/19 Unknown Rx [ProAir HFA Inhaler] Nitrofurantoin [place]/M-Cryst 100 mg PO BID 7 Days #14 capsule 05/27/19 Unknown Rx [Macrobid CAP] Permethrin 5% [Acticin 5% CREAM] 1 applicatio TP ONCE #1 tube 05/27/19 Unknown Rx predniSONE [Deltasone] 40 mg PO DAILY 5 Days #10 tablet 05/27/19 Unknown Rx ED Physical Exam - General Limitations: No Limitations General appearance: alert, in no apparent distress - Head Head exam: Present: atraumatic, normocephalic - Eye Eye exam: Present: normal appearance, PERRL, EOMI Pupils: Present: normal accommodation - ENT ENT exam: Present: normal orophraynx, mucous membranes moist, TM's normal bilaterally, normal external ear exam - Neck Neck exam: Present: normal inspection, full ROM. Absent: tenderness, lymphadenopathy - Respiratory Respiratory exam: Present: normal lung sounds bilaterally. Absent: respiratory distress, wheezes, rales, rhonchi, stridor, chest wall tenderness - Cardiovascular Cardiovascular Exam: Present: regular rate, normal rhythm, normal heart sounds. Absent: systolic murmur, diastolic murmur, rubs, gallop - GI/Abdominal GI/Abdominal exam: Present: soft, normal bowel sounds. Absent: distended, tenderness, guarding, rebound, rigid, bruit, hernia - Rectal Rectal exam: Present: deferred - Extremities Exam Extremities exam: Present: normal inspection, full ROM. Absent: tenderness - Back Exam Back exam: Present: normal inspection, full ROM. Absent: tenderness, CVA tenderness (R), CVA tenderness (L) - Neurological Exam Neurological exam: Present: alert, oriented X3, CN II-XII intact, normal gait, reflexes normal. Absent: motor sensory deficit - Psychiatric Psychiatric exam: Present: normal affect, normal mood - Skin Skin exam: Present: warm, dry, intact, normal color. Absent: rash ED Course Vital Signs 05/27/19 05/27/19 05/27/19 16:37 16:40 21:30 Temperature 98.1 F Pulse Rate 107 H Respiratory 18 16 Rate Blood Pressure 124/76 [Left] O2 Sat by Pulse 94 Oximetry ED Medical Decision Making - Radiology Data Radiology results: report reviewed, image reviewed FINDINGS: Support devices: None. Heart: Within normal limits. Lungs/pleura: No acute air space or interstitial disease. No pneumothorax. Additional findings: None. IMPRESSION: 1. No acute findings. Signer Name: Ceferino Valladares MD Signed: 05/27/2019 5:24 PM Workstation Name: [id number] - Medical Decision Making ua;: UTI, cxr: normal no infiltrates no opacities, symptoms improved with neb tx, plan: macrobid, tylenol, prednisone, Abluterol inhaler prn ,follow up with primary care doctor in 2-3 days. pt verbalized agreement and understanding of same. Critical care attestation.: If time is entered above; I have spent that time in minutes in the direct care of this critically ill patient, excluding procedure time. ED Disposition Clinical Impression: Bronchitis UTI (urinary tract infection) Qualifiers: Urinary tract infection type: acute cystitis Hematuria presence: without hematuria Qualified Code(s): N30.00 - Acute cystitis without hematuria Disposition: TO HOME OR SELFCARE Is pt being admited?: No Does the pt Need Aspirin: No Condition: Stable Instructions: Chronic Bronchitis (ED) Prescriptions: predniSONE [Deltasone] 40 mg PO DAILY 5 Days #10 tablet Nitrofurantoin [place]/M-Cryst [Macrobid CAP] 100 mg PO BID 7 Days #14 capsule Albuterol INH(or & Nicu Only) [ProAir HFA Inhaler] 2 puff IH QID PRN #8.5 gram PRN Reason: Shortness Of Breath Acetaminophen [Tylenol] 650 mg PO QID #30 capsule Referrals: [facility] [Outside] - 3-5 Days Forms: Work/School Release Form(ED) Time of Disposition: 22:29
[2019-05-27] MEDS ORDERED: predniSONE 20 MG TAB PO ONE (21:47)
[2019-05-27 22:41] VITALS: BP 129/78
[2019-05-28] MEDS ORDERED: IPRATROPIUM/ALBUTEROL SULFATE 3 ML AMPUL.NEB IH SCH (08:00)
== END 2019-05-27 22:41 | disposition home or self-care (01) ==
LOC: ED 16:33
DX: J40 Bronchitis, not specified as acute or chronic (principal); N39.0 Urinary tract infection, site not specified; F31.9 Bipolar disorder, unspecified; J44.9 Chronic obstructive pulmonary disease, unspecified; Z88.8 Allergy status to other drugs, medicaments and biological substances; Z79.899 Other long term (current) drug therapy; Z87.442 Personal history of urinary calculi; Z21 Asymptomatic human immunodeficiency virus [HIV] infection status
CPT/HCPCS: 71046; 81001; 87086; 99283; J7512

== ENCOUNTER 2019-06-04 18:02 | Emergency (ER) | payer MEDICARE ==
--- NOTE | 2019-06-04 18:08 | Event Note ---
ED Screening Note ED Screening Note: fever cough hx of COPD currently taking antibiotics This initial assessment/diagnostic orders/clinical plan/treatment(s) is/are subject to change based on patients health status, clinical progression and re- assessment by fellow clinical providers in the ED. Further treatment and workup at subsequent clinical providers discretion. Patient/guardian urged not to elope from the ED as their condition may be serious if not clinically assessed and managed. Initial orders include: xr ordered
[2019-06-04 18:09] VITALS: BP 119/56
--- NOTE | 2019-06-04 18:55 | XRay Report ---
CHEST 2 VIEWS INDICATION / CLINICAL INFORMATION: fever, cough, copd. COMPARISON: Chest x-ray on 05/27/2019 FINDINGS: SUPPORT DEVICES: None. HEART / MEDIASTINUM: No significant abnormality. LUNGS / PLEURA: No significant pulmonary or pleural abnormality. No pneumothorax. ADDITIONAL FINDINGS: No significant additional findings. IMPRESSION: 1. No acute findings. Signer Name: Calvin Braga MD Signed: 06/04/2019 6:50 PM Workstation Name: [id number]
[2019-06-04] MEDS ORDERED: predniSONE 20 MG TAB PO ONE (19:48)
[2019-06-04] MEDS ORDERED: IPRATROPIUM/ALBUTEROL SULFATE 3 ML AMPUL.NEB IH ONE (19:48)
--- NOTE | 2019-06-04 19:51 | Emergency Department Report ---
ED Shortness of Breath HPI - General Chief Complaint: Dyspnea/Respdistress Stated Complaint: COPD/PAIN Time Seen by Provider: 06/04/19 19:21 Source: patient Mode of arrival: Ambulatory Limitations: No Limitations - History of Present Illness Initial Comments: This is a 64-year-old female that presents to the emergency room with chest tightness and shortness of breath for 2 to 3 days. Patient reports nonproductive cough with associated symptoms. Past medical history of COPD, asthma, HIV, kidney stones, and depression. MD Complaint: shortness of breath Onset/Timin -: days(s) Severity: mild Pain Scale: 3 Quality: other (Tightness) Consistency: intermittent Improves With: nothing Worsens With: exertion Known History Of: COPD, asthma, HIV Context: recent illness Associated Symptoms: chest pain - Related Data Home Oxygen Therapy: No Previous Rx's Medication Instructions Recorded Last Taken Type Aspirin EC [Halfprin EC] 81 mg PO QDAY #30 tablet. 02/05/19 Unknown Rx Nitroglycerin [Nitrostat] 0.4 mg SL Q5M PRN #30 tablet 02/05/19 Unknown Rx Pantoprazole [Protonix TAB] 40 mg PO QDAY #30 tablet 02/05/19 Unknown Rx Pravastatin [Pravachol] 20 mg PO QHS #30 tablet 02/05/19 Unknown Rx Albuterol INH(or & Nicu Only) 2 puff IH QID PRN #1 inh 05/15/19 Unknown Rx [ProAir HFA Inhaler] Albuterol INH(or & Nicu Only) 1 puff IH Q4-6H PRN #1 inha 05/24/19 Unknown Rx [ProAir HFA Inhaler] Brompheniramine/Pseudoephed/Dm 5 ml PO Q6H PRN #240 syrup 05/24/19 Unknown Rx [Hewoouzxwe-Xbzhwnvfbmh-Lf Syr] Sulfamethoxazole/Trimethoprim 1 each PO BID #20 tablet 05/25/19 Unknown Rx [Bactrim DS TAB] Acetaminophen [Tylenol] 650 mg PO QID #30 capsule 05/27/19 Unknown Rx Nitrofurantoin [place]/M-Cryst 100 mg PO BID 7 Days #14 capsule 05/27/19 Unknown Rx [Macrobid CAP] Permethrin 5% [Acticin 5% CREAM] 1 applicatio TP ONCE #1 tube 05/27/19 Unknown Rx predniSONE [Deltasone] 40 mg PO DAILY 5 Days #10 tablet 05/27/19 Unknown Rx Albuterol INH(or & Nicu Only) 2 puff IH QID PRN #8.5 gram 06/04/19 Unknown Rx [ProAir HFA Inhaler] Prednisone [predniSONE 10 mg 10 mg PO .TAPER #1 tab.ds.pk 06/04/19 Unknown Rx (6-Day Pack, 21 Tabs)] Allergies Allergy/AdvReac Type Severity Reaction Status Date / Time cephalexin monohydrate Allergy Rash Verified 06/04/19 18:04 [From Keflex] aripiprazole [From Abilify] AdvReac "tardive Verified 06/04/19 18:04 dyskinesia" haloperidol [From Haldol] AdvReac pain Verified 05/27/19 16:38 haloperidol lactate AdvReac pain Verified 06/04/19 18:04 [From Haldol] lisinopril AdvReac "it hurts Verified 06/04/19 18:04 my head" lithium AdvReac "It makes Verified 06/04/19 18:04 me mad" Phenothiazines AdvReac pain Verified 06/04/19 18:04 quetiapine fumarate AdvReac pain Verified 06/04/19 18:04 [From Seroquel] risperidone [From Risperdal] AdvReac tardive Verified 06/04/19 18:04 dyskinesia steroids Allergy Unknown Uncoded 06/04/19 18:04 ED Review of Systems ROS: Stated complaint: COPD/PAIN Other details as noted in HPI Constitutional: denies: chills, fever ENT: denies: ear pain, throat pain Respiratory: shortness of breath, SOB with exertion. denies: cough, wheezing Cardiovascular: chest pain. denies: palpitations Gastrointestinal: denies: abdominal pain, nausea, diarrhea Musculoskeletal: denies: back pain, joint swelling, arthralgia Skin: denies: rash, lesions Neurological: denies: headache, weakness, paresthesias Psychiatric: denies: anxiety, depression ED Past Medical Hx - Past Medical History Hx Congestive Heart Failure: No Hx Diabetes: No Hx Kidney Stones: Yes Hx Psychiatric Treatment: Yes (manic depression) Hx Asthma: Yes Hx COPD: Yes Hx HIV: Yes Additional medical history: bronchitis. neurogenic bladder. Multiple prior UTIs and kidney stone - Surgical History Additional Surgical History: hysterectomy. hemorrhoid - Social History Smoking Status: Current Every Day Smoker Substance Use Type: None - Medications Home Medications: Home Medications Medication Instructions Recorded Confirmed Last Taken Type Aspirin EC [Halfprin EC] 81 mg PO QDAY #30 tablet. 02/05/19 Unknown Rx Nitroglycerin [Nitrostat] 0.4 mg SL Q5M PRN #30 tablet 02/05/19 Unknown Rx Pantoprazole [Protonix TAB] 40 mg PO QDAY #30 tablet 02/05/19 Unknown Rx Pravastatin [Pravachol] 20 mg PO QHS #30 tablet 02/05/19 Unknown Rx Albuterol INH(or & Nicu Only) 2 puff IH QID PRN #1 inh 05/15/19 Unknown Rx [ProAir HFA Inhaler] Albuterol INH(or & Nicu Only) 1 puff IH Q4-6H PRN #1 inha 05/24/19 Unknown Rx [ProAir HFA Inhaler] Brompheniramine/Pseudoephed/Dm 5 ml PO Q6H PRN #240 syrup 05/24/19 Unknown Rx [Blamjubjbv-Yxqbzlfqywp-Lq Syr] Sulfamethoxazole/Trimethoprim 1 each PO BID #20 tablet 05/25/19 Unknown Rx [Bactrim DS TAB] Acetaminophen [Tylenol] 650 mg PO QID #30 capsule 05/27/19 Unknown Rx Nitrofurantoin [place]/M-Cryst 100 mg PO BID 7 Days #14 capsule 05/27/19 Unknown Rx [Macrobid CAP] Permethrin 5% [Acticin 5% CREAM] 1 applicatio TP ONCE #1 tube 05/27/19 Unknown Rx predniSONE [Deltasone] 40 mg PO DAILY 5 Days #10 tablet 05/27/19 Unknown Rx Albuterol INH(or & Nicu Only) 2 puff IH QID PRN #8.5 gram 06/04/19 Unknown Rx [ProAir HFA Inhaler] Prednisone [predniSONE 10 mg 10 mg PO .TAPER #1 tab.ds.pk 06/04/19 Unknown Rx (6-Day Pack, 21 Tabs)] ED Physical Exam - General Limitations: No Limitations General appearance: alert, in no apparent distress - ENT ENT exam: Present: mucous membranes moist - Respiratory Respiratory exam: Present: normal lung sounds bilaterally. Absent: respiratory distress, wheezes, rales, rhonchi, stridor, chest wall tenderness, accessory muscle use - Cardiovascular Cardiovascular Exam: Present: regular rate, normal rhythm. Absent: systolic murmur, diastolic murmur, rubs, gallop - GI/Abdominal GI/Abdominal exam: Present: soft, normal bowel sounds. Absent: distended, tenderness, guarding, rebound, rigid - Extremities Exam Extremities exam: Present: normal inspection - Neurological Exam Neurological exam: Present: alert, oriented X3 - Psychiatric Psychiatric exam: Present: normal affect, normal mood - Skin Skin exam: Present: warm, dry, intact, normal color. Absent: rash ED Course Vital Signs 06/04/19 18:07 Temperature 98.6 F Pulse Rate 93 H Respiratory 24 Rate Blood Pressure 119/56 O2 Sat by Pulse 95 Oximetry ED Medical Decision Making - Radiology Data Radiology results: report reviewed CHEST 2 VIEWS INDICATION / CLINICAL INFORMATION: fever, cough, copd. COMPARISON: Chest x-ray on 05/27/2019 FINDINGS: SUPPORT DEVICES: None. HEART / MEDIASTINUM: No significant abnormality. LUNGS / PLEURA: No significant pulmonary or pleural abnormality. No pneumothorax. ADDITIONAL FINDINGS: No significant additional findings. IMPRESSION: 1. No acute findings. - Medical Decision Making 64 y.o. female that presents with SOB and chest tightness for 2 to 3 days. History of COPD, asthma, HIV, and depression. Noncompliant with medication. Vitals stable. Work-up: Chest x-ray. Chest x-ray without acute cardiopulmonary findings. Given duoneb treatment once and prednisone 60 mg po once in ER. Asthma exacerbation, Start albuterol and prednisone taper. Discharged home stable. Follow-up with primary care doctor or return to the emergency room with worsening symptoms. Critical care attestation.: If time is entered above; I have spent that time in minutes in the direct care of this critically ill patient, excluding procedure time. ED Disposition Clinical Impression: Acute exacerbation of COPD with asthma, Shortness of breath, Chest tightness Disposition: - TO HOME OR SELFCARE Is pt being admited?: No Condition: Stable Instructions: Asthma (ED), Chronic Obstructive Pulmonary Disease (ED) Additional Instructions: It is important to use inhaler or have active albuterol inhaler and avoiding asthma triggers. Complete full course of prednisone steroids as prescribed. Follow up with Primary Care Provider in 24-72 hours. Prescriptions: Prednisone [predniSONE 10 mg (6-Day Pack, 21 Tabs)] 10 mg PO .TAPER #1 tab.ds.pk Albuterol INH(or & Nicu Only) [ProAir HFA Inhaler] 2 puff IH QID PRN #8.5 gram PRN Reason: Shortness Of Breath Referrals: [facility] [Outside] - 3-5 Days [facility] [Outside] - 3-5 Days [facility] [Outside] - 3-5 Days Time of Disposition: 19:55
== END 2019-06-04 20:15 | disposition home or self-care (01) ==
LOC: ED 18:02
DX: J44.1 Chronic obstructive pulmonary disease with (acute) exacerbation (principal); Z21 Asymptomatic human immunodeficiency virus [HIV] infection status; F17.200 Nicotine dependence, unspecified, uncomplicated; Z90.710 Acquired absence of both cervix and uterus; Z87.442 Personal history of urinary calculi; Z88.1 Allergy status to other antibiotic agents; Z88.8 Allergy status to other drugs, medicaments and biological substances; Z79.82 Long term (current) use of aspirin; Z79.899 Other long term (current) drug therapy
CPT/HCPCS: 71046; 99283; J7512

== ENCOUNTER 2019-06-08 17:00 | Emergency (ER) | payer MEDICARE | END 2019-06-08 20:00 | disposition left against medical advice (07) | LOC: ED 17:00 | DX: R05 Cough (principal); Z53.21 Procedure and treatment not carried out due to patient leaving prior to being seen by health care provider ==

== ENCOUNTER 2019-06-09 09:48 | Emergency (ER) | payer MEDICARE ==
[2019-06-09 11:16] LABS: Hematocrit 38.5 % (30.3-42.9); Hemoglobin 12.9 gm/dl (10.1-14.3); Mean Corpuscular HGB Conc 33 % (30-34); Mean Corpuscular Volume 94 fl (79-97); Platelet Count 232 K/mm3 (140-440); Red Blood Count 4.09 M/mm3 (3.65-5.03); Red Cell Distribution Width 13.9 % (13.2-15.2)
[2019-06-09 11:34] LABS: Alanine Aminotransferase 17 units/L (7-56); Albumin 4.1 g/dL (3.9-5); BUN/Creatinine Ratio 21; Blood Urea Nitrogen 19 mg/dL (7-17); Calcium 8.9 mg/dL (8.4-10.2); Hemolysis Index 2
[2019-06-09 12:03] LABS: Basophils % (Manual) 0 % (0.0-1.8); Eosinophils % (Manual) 0 % (0.0-4.3); Platelet Estimate Consistent w Auto; Total Cells Counted 100
[2019-06-09 13:40] LABS: Bacteria,Urine 1+ /HPF (Negative); Bilirubin,Urine NEG (Negative); Blood,Urine NEG (Negative); Color,Urine Yellow (Yellow); Mucus,Urine FEW /HPF; Protein,Urine <15 mg/dL mg/dL (Negative); Urobilinogen,Urine < 2.0 mg/dL (<2.0)
--- NOTE | 2019-06-09 15:49 | Emergency Department Report ---
- General Chief Complaint: Abdominal Pain Stated Complaint: FEVER Time Seen by Provider: 06/09/19 12:30 Source: patient Mode of arrival: Ambulatory Limitations: No Limitations - History of Present Illness MD Complaint: cough, rhinorrhea, nasal congestion -: Gradual, week(s) (1) Improves With: nothing Worsens With: nothing Associated Symptoms: rhinorrhea, nasal congestion, cough. denies: myalgias, nausea, vomiting, diarrhea, epistaxis, hoarseness Treatments Prior to Arrival: none - Related Data Previous Rx's Medication Instructions Recorded Last Taken Type Aspirin EC [Halfprin EC] 81 mg PO QDAY #30 tablet. 02/05/19 Unknown Rx Nitroglycerin [Nitrostat] 0.4 mg SL Q5M PRN #30 tablet 02/05/19 Unknown Rx Pantoprazole [Protonix TAB] 40 mg PO QDAY #30 tablet 02/05/19 Unknown Rx Pravastatin [Pravachol] 20 mg PO QHS #30 tablet 02/05/19 Unknown Rx Albuterol INH(or & Nicu Only) 2 puff IH QID PRN #1 inh 05/15/19 Unknown Rx [ProAir HFA Inhaler] Albuterol INH(or & Nicu Only) 1 puff IH Q4-6H PRN #1 inha 05/24/19 Unknown Rx [ProAir HFA Inhaler] Brompheniramine/Pseudoephed/Dm 5 ml PO Q6H PRN #240 syrup 05/24/19 Unknown Rx [Gwfdcyrvrf-Faniqwiwolt-Nd Syr] Sulfamethoxazole/Trimethoprim 1 each PO BID #20 tablet 05/25/19 Unknown Rx [Bactrim DS TAB] Acetaminophen [Tylenol] 650 mg PO QID #30 capsule 05/27/19 Unknown Rx Nitrofurantoin [place]/M-Cryst 100 mg PO BID 7 Days #14 capsule 05/27/19 Unknown Rx [Macrobid CAP] Permethrin 5% [Acticin 5% CREAM] 1 applicatio TP ONCE #1 tube 05/27/19 Unknown Rx predniSONE [Deltasone] 40 mg PO DAILY 5 Days #10 tablet 05/27/19 Unknown Rx Prednisone [predniSONE 10 mg 10 mg PO .TAPER #1 tab.ds.pk 06/04/19 Unknown Rx (6-Day Pack, 21 Tabs)] Albuterol INH(or & Nicu Only) 2 puff IH QID PRN #8.5 gram 06/09/19 Unknown Rx [ProAir HFA Inhaler] Azithromycin [Zithromax TAB] 500 mg PO QDAY #3 tablet 06/09/19 Unknown Rx Benzonatate [Tessalon Perles] 100 mg PO Q8HR #30 capsule 06/09/19 Unknown Rx predniSONE [Deltasone] 50 mg PO QDAY #10 tab 06/09/19 Unknown Rx Allergies Allergy/AdvReac Type Severity Reaction Status Date / Time cephalexin monohydrate Allergy Rash Verified 06/04/19 18:04 [From Keflex] aripiprazole [From Abilify] AdvReac "tardive Verified 06/04/19 18:04 dyskinesia" haloperidol [From Haldol] AdvReac pain Verified 05/27/19 16:38 haloperidol lactate AdvReac pain Verified 06/04/19 18:04 [From Haldol] lisinopril AdvReac "it hurts Verified 06/04/19 18:04 my head" lithium AdvReac "It makes Verified 06/04/19 18:04 me mad" Phenothiazines AdvReac pain Verified 06/04/19 18:04 quetiapine fumarate AdvReac pain Verified 06/04/19 18:04 [From Seroquel] risperidone [From Risperdal] AdvReac tardive Verified 06/04/19 18:04 dyskinesia steroids Allergy Unknown Uncoded 06/04/19 18:04 ED Review of Systems ROS: Stated complaint: FEVER Other details as noted in HPI Comment: All other systems reviewed and negative ED Past Medical Hx - Past Medical History Previous Medical History?: Yes Hx Congestive Heart Failure: No Hx Diabetes: No Hx Kidney Stones: Yes Hx Psychiatric Treatment: Yes (manic depression) Hx Asthma: Yes Hx COPD: Yes Hx HIV: Yes Additional medical history: bronchitis. neurogenic bladder. Multiple prior UTIs and kidney stone - Surgical History Past Surgical History?: Yes Additional Surgical History: hysterectomy. hemorrhoid - Social History Smoking Status: Current Every Day Smoker Substance Use Type: None - Medications Home Medications: Home Medications Medication Instructions Recorded Confirmed Last Taken Type Aspirin EC [Halfprin EC] 81 mg PO QDAY #30 tablet. 02/05/19 Unknown Rx Nitroglycerin [Nitrostat] 0.4 mg SL Q5M PRN #30 tablet 11/01/19 Unknown Rx Pantoprazole [Protonix TAB] 40 mg PO QDAY #30 tablet 02/05/19 Unknown Rx Pravastatin [Pravachol] 20 mg PO QHS #30 tablet 02/05/19 Unknown Rx Albuterol INH(or & Nicu Only) 2 puff IH QID PRN #1 inh 05/15/19 Unknown Rx [ProAir HFA Inhaler] Albuterol INH(or & Nicu Only) 1 puff IH Q4-6H PRN #1 inha 05/24/19 Unknown Rx [ProAir HFA Inhaler] Brompheniramine/Pseudoephed/Dm 5 ml PO Q6H PRN #240 syrup 05/24/19 Unknown Rx [Pdagnfxssd-Fjwiaagiiei-Dc Syr] Sulfamethoxazole/Trimethoprim 1 each PO BID #20 tablet 05/25/19 Unknown Rx [Bactrim DS TAB] Acetaminophen [Tylenol] 650 mg PO QID #30 capsule 05/27/19 Unknown Rx Nitrofurantoin [place]/M-Cryst 100 mg PO BID 7 Days #14 capsule 05/27/19 Unknown Rx [Macrobid CAP] Permethrin 5% [Acticin 5% CREAM] 1 applicatio TP ONCE #1 tube 05/27/19 Unknown Rx predniSONE [Deltasone] 40 mg PO DAILY 5 Days #10 tablet 05/27/19 Unknown Rx Prednisone [predniSONE 10 mg 10 mg PO .TAPER #1 tab.ds.pk 06/04/19 Unknown Rx (6-Day Pack, 21 Tabs)] Albuterol INH(or & Nicu Only) 2 puff IH QID PRN #8.5 gram 06/09/19 Unknown Rx [ProAir HFA Inhaler] Azithromycin [Zithromax TAB] 500 mg PO QDAY #3 tablet 06/09/19 Unknown Rx Benzonatate [Tessalon Perles] 100 mg PO Q8HR #30 capsule 06/09/19 Unknown Rx predniSONE [Deltasone] 50 mg PO QDAY #10 tab 06/09/19 Unknown Rx ED Physical Exam - General Limitations: No Limitations General appearance: alert, in no apparent distress - Head Head exam: Present: atraumatic, normocephalic - Eye Eye exam: Present: normal appearance, PERRL, EOMI Pupils: Present: normal accommodation - ENT ENT exam: Present: normal exam, mucous membranes moist, other (Nasal congestion with sinus swelling bilaterally. No effusions noted. Discharge is clear) - Neck Neck exam: Present: normal inspection, full ROM. Absent: meningismus, lymphadenopathy, thyromegaly - Respiratory Respiratory exam: Present: normal lung sounds bilaterally, rhonchi. Absent: respiratory distress, accessory muscle use - Cardiovascular Cardiovascular Exam: Present: regular rate, normal rhythm. Absent: systolic murmur, diastolic murmur, rubs, gallop - GI/Abdominal GI/Abdominal exam: Present: soft, normal bowel sounds - Extremities Exam Extremities exam: Present: normal inspection - Back Exam Back exam: Present: normal inspection. Absent: CVA tenderness (R), CVA tenderness (L), paraspinal tenderness, vertebral tenderness - Neurological Exam Neurological exam: Present: alert, oriented X3, CN II-XII intact - Psychiatric Psychiatric exam: Present: normal affect, normal mood - Skin Skin exam: Present: warm, dry, intact, normal color. Absent: rash ED Course Vital Signs 06/09/19 06/09/19 09:52 12:37 Temperature 98.3 F Pulse Rate 92 H Respiratory 20 17 Rate Blood Pressure 110/49 O2 Sat by Pulse 96 Oximetry ED Medical Decision Making - Lab Data Result diagrams: 06/09/19 10:30 06/09/19 10:30 - Medical Decision Making This patient presents with acute cough, most consistent with bronchitis. Differential diagnosis includes pneumonia, asthma, COPD, bronchitis, hyperreactive airway. Presentation not consistent with acute bacterial pneumonia, influenza, asthma, transient airway hyperresponsiveness. Presentation not consistent with chronic causes of cough (including GERD, asthma, postnasal discharge, medication side effect, CHF, lung cancer or mass). No travel, no sick contacts, no documented fever no night sweats no rashes no hemoptysis no hematemesis Plan: supportive care, reassess Critical care attestation.: If time is entered above; I have spent that time in minutes in the direct care of this critically ill patient, excluding procedure time. ED Disposition Clinical Impression: Shortness of breath, Bronchitis Disposition: - TO HOME OR SELFCARE Is pt being admited?: No Does the pt Need Aspirin: No Condition: Stable Instructions: Abdominal Pain (ED), Chronic Bronchitis (ED) Prescriptions: predniSONE [Deltasone] 50 mg PO QDAY #10 tab Albuterol INH(or & Nicu Only) [ProAir HFA Inhaler] 2 puff IH QID PRN #8.5 gram PRN Reason: Shortness Of Breath Benzonatate [Tessalon Perles] 100 mg PO Q8HR #30 capsule Azithromycin [Zithromax TAB] 500 mg PO QDAY #3 tablet Referrals: [facility] [Outside] - 3-5 Days
[2019-06-09 16:12] VITALS: BP 127/60
== END 2019-06-09 16:13 | disposition home or self-care (01) ==
LOC: ED 09:48
DX: J40 Bronchitis, not specified as acute or chronic (principal); N20.0 Calculus of kidney; J44.9 Chronic obstructive pulmonary disease, unspecified; F17.200 Nicotine dependence, unspecified, uncomplicated; Z90.710 Acquired absence of both cervix and uterus; Z79.82 Long term (current) use of aspirin; Z79.899 Other long term (current) drug therapy; Z88.8 Allergy status to other drugs, medicaments and biological substances
CPT/HCPCS: 36415; 80053; 81001; 85007; 85025

== ENCOUNTER 2019-06-11 | Emergency (ER) | payer MEDICARE ==
[2019-06-11] MEDS ORDERED: predniSONE 20 MG TAB PO ONE (00:45)
[2019-06-11] MEDS ORDERED: IPRATROPIUM/ALBUTEROL SULFATE 3 ML AMPUL.NEB IH ONE (00:45)
[2019-06-11] MEDS ORDERED: ACETAMINOPHEN 500 MG TAB PO STA (00:50)
--- NOTE | 2019-06-11 00:51 | Emergency Department Report ---
ED Fever HPI - General Chief Complaint: Chest Pain Stated Complaint: BACK PAIN/FLU SX/PAINFUL URINATION/ASTHMA/COPD Time Seen by Provider: 06/11/19 00:43 Source: patient, old records Exam Limitations: no limitations - History of Present Illness Initial Comments: Mrs. Sarabia is a 64-year-old female with history of COPD, neurogenic bladder recurrent UTI, schizoaffective disorder, renal stone, hypertension, tobacco abuse who presents with fever, back pain, coughing, pain with urination. Currently taking azithromycin from ED encounter 2 days ago. Timing/Duration: getting worse, other (2 days) Associated Symptoms: chest pain, cough, other (back pain, coughing, pain with urination, "heart pain") ED Review of Systems ROS: Stated complaint: BACK PAIN/FLU SX/PAINFUL URINATION/ASTHMA/COPD Other details as noted in HPI Comment: All other systems reviewed and negative Constitutional: chills, fever, malaise Respiratory: cough Cardiovascular: chest pain Genitourinary: urgency Musculoskeletal: back pain ED Past Medical Hx - Past Medical History Previous Medical History?: Yes Hx Congestive Heart Failure: No Hx Diabetes: No Hx Kidney Stones: Yes Hx Psychiatric Treatment: Yes (manic depression) Hx Asthma: Yes Hx COPD: Yes Hx HIV: Yes Additional medical history: bronchitis. neurogenic bladder. Multiple prior UTIs and kidney stone - Surgical History Past Surgical History?: Yes Additional Surgical History: hysterectomy. hemorrhoid - Social History Smoking Status: Current Every Day Smoker Substance Use Type: None - Medications Home Medications: Home Medications Medication Instructions Recorded Confirmed Last Taken Type Aspirin EC [Halfprin EC] 81 mg PO QDAY #30 tablet. 02/05/19 Unknown Rx Nitroglycerin [Nitrostat] 0.4 mg SL Q5M PRN #30 tablet 02/05/19 Unknown Rx Pantoprazole [Protonix TAB] 40 mg PO QDAY #30 tablet 02/05/19 Unknown Rx Pravastatin [Pravachol] 20 mg PO QHS #30 tablet 02/05/19 Unknown Rx Albuterol INH(or & Nicu Only) 2 puff IH QID PRN #1 inh 05/15/19 Unknown Rx [ProAir HFA Inhaler] Albuterol INH(or & Nicu Only) 1 puff IH Q4-6H PRN #1 inha 05/24/19 Unknown Rx [ProAir HFA Inhaler] Brompheniramine/Pseudoephed/Dm 5 ml PO Q6H PRN #240 syrup 05/24/19 Unknown Rx [Cckbwgptol-Hgovrxvbxew-Mp Syr] Sulfamethoxazole/Trimethoprim 1 each PO BID #20 tablet 05/25/19 Unknown Rx [Bactrim DS TAB] Acetaminophen [Tylenol] 650 mg PO QID #30 capsule 05/27/19 Unknown Rx Nitrofurantoin [place]/M-Cryst 100 mg PO BID 7 Days #14 capsule 05/27/19 Unknown Rx [Macrobid CAP] Permethrin 5% [Acticin 5% CREAM] 1 applicatio TP ONCE #1 tube 05/27/19 Unknown Rx predniSONE [Deltasone] 40 mg PO DAILY 5 Days #10 tablet 05/27/19 Unknown Rx Prednisone [predniSONE 10 mg 10 mg PO .TAPER #1 tab.ds.pk 06/04/19 Unknown Rx (6-Day Pack, 21 Tabs)] Albuterol INH(or & Nicu Only) 2 puff IH QID PRN #8.5 gram 06/09/19 Unknown Rx [ProAir HFA Inhaler] Azithromycin [Zithromax TAB] 500 mg PO QDAY #3 tablet 06/09/19 Unknown Rx Benzonatate [Tessalon Perles] 100 mg PO Q8HR #30 capsule 06/09/19 Unknown Rx predniSONE [Deltasone] 50 mg PO QDAY #10 tab 06/09/19 Unknown Rx levoFLOXacin [Levaquin] 750 mg PO QDAY 4 Days #4 tablet 06/11/19 Unknown Rx ED Physical Exam - General Limitations: No Limitations General appearance: alert, in no apparent distress - Head Head exam: Present: atraumatic, normocephalic - Eye Eye exam: Present: normal appearance - ENT ENT exam: Present: mucous membranes moist - Neck Neck exam: Present: normal inspection, full ROM - Respiratory Respiratory exam: Present: normal lung sounds bilaterally. Absent: respiratory distress, wheezes, rales, rhonchi - Cardiovascular Cardiovascular Exam: Present: normal rhythm, tachycardia, normal heart sounds. Absent: systolic murmur, diastolic murmur, rubs, gallop - GI/Abdominal GI/Abdominal exam: Present: soft, normal bowel sounds. Absent: distended, tenderness, guarding, rebound - Extremities Exam Extremities exam: Present: normal inspection - Back Exam Back exam: Present: normal inspection - Neurological Exam Neurological exam: Present: alert, oriented X3 - Psychiatric Psychiatric exam: Present: normal affect, normal mood - Skin Skin exam: Present: warm, dry, intact, normal color. Absent: rash ED Course Vital Signs 06/11/19 00:23 Temperature 100 F H Pulse Rate 119 H Respiratory 20 Rate Blood Pressure 138/86 [Right] O2 Sat by Pulse 87 Oximetry ED Medical Decision Making - Lab Data Result diagrams: 06/11/19 00:53 06/11/19 00:53 - Radiology Data Radiology results: report reviewed AP portable chest 1 view no acute change no significant pulmonary abnormality, there are findings of COPD CT chest: No acute findings unchanged from study May 2019 CT abdomen pelvis without contrast no acute findings, chronic bilateral renal calculi are seen without obstruction, mild atrophy of the right kidney - Medical Decision Making Mrs. Sarabia presents with fever back pain cough. No indication of PNA. Suspect UTI. treated with IV levaquin. I have discontinued Azithromycin. Prescribled Levaquin repeat pulse ox 93%, patient is not in any respiratory distress Critical care attestation.: If time is entered above; I have spent that time in minutes in the direct care of this critically ill patient, excluding procedure time. ED Disposition Clinical Impression: UTI (urinary tract infection), Fever Disposition: - TO HOME OR SELFCARE Is pt being admited?: No Does the pt Need Aspirin: No Condition: Stable Instructions: Urinary Tract Infection in Women (ED) Prescriptions: levoFLOXacin [Levaquin] 750 mg PO QDAY 4 Days #4 tablet
[2019-06-11 01:18] LABS: Basophils % (Auto) 0.4 % (0.0-1.8); Hematocrit 39.5 % (30.3-42.9); Hemoglobin 13.4 gm/dl (10.1-14.3); Lymphocytes # (Auto) 1.1 K/mm3 (1.2-5.4); Lymphocytes % (Auto) 21.5 % (13.4-35.0); Mean Corpuscular HGB Conc 34 % (30-34); Mean Corpuscular Volume 93 fl (79-97); Monocytes # (Auto) 0.6 K/mm3 (0.0-0.8); Monocytes % (Auto) 11.5 % (0.0-7.3); Platelet Count 200 K/mm3 (140-440); Red Blood Count 4.24 M/mm3 (3.65-5.03); Red Cell Distribution Width 13.5 % (13.2-15.2)
--- NOTE | 2019-06-11 01:33 | XRay Report ---
CHEST 1 VIEW INDICATION / CLINICAL INFORMATION: Chest Pain. COMPARISON: 06/04/2019 FINDINGS: SUPPORT DEVICES: None. HEART / MEDIASTINUM: No significant abnormality. LUNGS / PLEURA: No significant pulmonary or pleural abnormality. No pneumothorax. ADDITIONAL FINDINGS: Lungs are hyperinflated likely due to COPD. IMPRESSION: 1. No significant change Signer Name: Luis Aranda MD Signed: 06/11/2019 1:28 AM Workstation Name: [id number]
[2019-06-11 01:45] LABS: BUN/Creatinine Ratio 20; Blood Urea Nitrogen 16 mg/dL (7-17); Calcium 9.3 mg/dL (8.4-10.2); Hemolysis Index 32
--- NOTE | 2019-06-11 02:19 | Cat Scan Report ---
CT of the chest without contrast INDICATION: Fever and cough COMPARISON: 05/15/2019 FINDINGS: Again there is no hilar or mediastinal adenopathy. No pleural or pericardial effusion. Lung windows show no nodules, masses or infiltrates. Moderate COPD changes are again seen. There is minim al hiatal hernia with the right adrenal adenoma unchanged. There is minimal vascular calcification wi thout thoracic aortic aneurysm. No significant skeletal lesion. IMPRESSION: Negative chest CT unchanged from 05/15/2019 Automated exposure control was utilized to diminish radiation dose. Signer Name: Luis rAanda MD Signed: 06/11/2019 2:15 AM Workstation Name: [id number]
--- NOTE | 2019-06-11 02:23 | Cat Scan Report ---
CT of the abdomen and pelvis without contrast INDICATION: Back pain and fever COMPARISON: 12/11/2017 FINDINGS: Lung bases are clear. The liver, spleen, pancreas and left adrenal gland are normal. Right adrenal adenoma is unchanged. Bilateral renal calculi are again seen without obstruction. No gross re nal masses. The right kidney is somewhat atrophic but nonobstructed this appearance is unchanged. No definite gallbladder or biliary tree abnormality. No fluid or adenopathy the in the upper abdomen. Th ere is minimal vascular calcification without aneurysm. CT of the pelvis shows evidence of hysterectomy. No pelvic fluid or adenopathy. No diverticulosis or diverticulitis. There is no hernia or bowel obstruction. Appendix is not seen. No colitis is seen. IMPRESSION: Negative study Automated exposure control was utilized to diminish radiation dose. Signer Name: Luis Aranda MD Signed: 06/11/2019 2:19 AM Workstation Name: [email or web address]
[2019-06-11 02:58] VITALS: BP 137/81
[2019-06-11] MEDS ORDERED: ALBUTEROL 2.5 MG/3 ML NEBU IH ONE (03:05)
== END 2019-06-11 03:00 | disposition home or self-care (01) ==
LOC: ED
DX: N39.0 Urinary tract infection, site not specified (principal); F33.9 Major depressive disorder, recurrent, unspecified; J44.9 Chronic obstructive pulmonary disease, unspecified; F17.200 Nicotine dependence, unspecified, uncomplicated; Z90.710 Acquired absence of both cervix and uterus; Z79.899 Other long term (current) drug therapy; Z88.6 Allergy status to analgesic agent
CPT/HCPCS: 36415; 71045; 71250; 74176; 80048; 85025; 87040; 94640; 96365; 99285; J1956; J7512

== ENCOUNTER 2019-06-15 16:36 | Emergency (ER) | payer MEDICARE ==
--- NOTE | 2019-06-15 16:48 | Event Note ---
ED Screening Note Date of service: 06/15/19 Time: 16:46 ED Screening Note: 64 y o female with COPD presents with sob and cp x 2 days worsening no O2 at home smoker This initial assessment/diagnostic orders/clinical plan/treatment(s) is/are subject to change based on patients health status, clinical progression and re- assessment by fellow clinical providers in the ED. Further treatment and workup at subsequent clinical providers discretion. Patient/guardian urged not to elope from the ED as their condition may be serious if not clinically assessed and managed. Initial orders include: labs, respir O2 in triage labs, cxr
--- NOTE | 2019-06-15 17:24 | XRay Report ---
CHEST 2 VIEWS INDICATION: Dyspnea. COMPARISON: 06/11/2019 FINDINGS: Support devices: None. Heart: Within normal limits. Lungs/pleura: No acute air space or interstitial disease. No pneumothorax. Additional findings: None. IMPRESSION: 1. No acute findings. Signer Name: Ceferino Valladares MD Signed: 06/15/2019 5:20 PM Workstation Name: [id number]
[2019-06-15 17:27] LABS: Creatine Kinase MB 2.8 ng/mL (0.0-4.0)
[2019-06-15 17:34] LABS: BUN/Creatinine Ratio 20; Blood Urea Nitrogen 16 mg/dL (7-17); Hemolysis Index 7
[2019-06-15 17:40] LABS: Basophils % (Auto) 0.1 % (0.0-1.8); Eosinophils % (Auto) 0.5 % (0.0-4.3); Hematocrit 39.9 % (30.3-42.9); Hemoglobin 13.4 gm/dl (10.1-14.3); Lymphocytes # (Auto) 2.5 K/mm3 (1.2-5.4); Lymphocytes % (Auto) 44.8 % (13.4-35.0); Mean Corpuscular HGB Conc 34 % (30-34); Mean Corpuscular Volume 93 fl (79-97); Monocytes # (Auto) 0.7 K/mm3 (0.0-0.8); Monocytes % (Auto) 11.9 % (0.0-7.3); Platelet Count 243 K/mm3 (140-440); Red Blood Count 4.29 M/mm3 (3.65-5.03); Red Cell Distribution Width 13.5 % (13.2-15.2)
--- NOTE | 2019-06-15 20:45 | Emergency Department Report ---
ED General Adult HPI - General Chief complaint: Dyspnea/Respdistress Stated complaint: KARISHMA Time Seen by Provider: 06/15/19 18:47 Source: patient, RN notes reviewed, old records reviewed Mode of arrival: Ambulatory Limitations: No Limitations - History of Present Illness Initial comments: This is a 64-year-old female. She reportedly has a history of depression, bronchitis, COPD Patient has been seen multiple times at this hospital within the past few days and weeks for shortness of breath. She has had extensive work-ups performed, including CT angiogram of the chest May 15 of this year, negative for pulmonary embolism or pneumonia, had a CT scan of the abdomen pelvis performed June 11, 2019, negative for acute pathology, also had an x-ray of the chest today performed, negative for acute pathology, and recently had a CT scan of the chest which was also negative for acute pathology. She has had multiple rounds of negative troponins. In addition, she reports that she was prescribed prednisone, azithromycin, and levofloxacin. She states she is been taking her antibiotics but not her breathing treatments. She presents to the ER today with a primary complaint of shortness of breath. She denies physical pain. She states she is not on home oxygen. She is not homicidal or suicidal. She does not describe exacerbating or relieving factors. At the moment, the patient is sleeping comfortably in her stretcher, breathing within normal limits, saturating at 97% on room air, and is in no acute respiratory distress. She asked me multiple times during her interview if she could stay here overnight. -: days(s) Severity scale (0 -10): 4 Quality: other Consistency: other Improves with: other Worsens with: rest Associated Symptoms: cough, shortness of breath - Related Data Previous Rx's Medication Instructions Recorded Last Taken Type Aspirin EC [Halfprin EC] 81 mg PO QDAY #30 tablet. 02/05/19 Unknown Rx Nitroglycerin [Nitrostat] 0.4 mg SL Q5M PRN #30 tablet 02/05/19 Unknown Rx Pantoprazole [Protonix TAB] 40 mg PO QDAY #30 tablet 02/05/19 Unknown Rx Pravastatin [Pravachol] 20 mg PO QHS #30 tablet 02/05/19 Unknown Rx Albuterol INH(or & Nicu Only) 2 puff IH QID PRN #1 inh 05/15/19 Unknown Rx [ProAir HFA Inhaler] Albuterol INH(or & Nicu Only) 1 puff IH Q4-6H PRN #1 inha 05/24/19 Unknown Rx [ProAir HFA Inhaler] Brompheniramine/Pseudoephed/Dm 5 ml PO Q6H PRN #240 syrup 05/24/19 Unknown Rx [Zxeguslrxx-Mjvwiepbwyi-Ok Syr] Sulfamethoxazole/Trimethoprim 1 each PO BID #20 tablet 05/25/19 Unknown Rx [Bactrim DS TAB] Acetaminophen [Tylenol] 650 mg PO QID #30 capsule 05/27/19 Unknown Rx Nitrofurantoin [place]/M-Cryst 100 mg PO BID 7 Days #14 capsule 05/27/19 Unknown Rx [Macrobid CAP] Permethrin 5% [Acticin 5% CREAM] 1 applicatio TP ONCE #1 tube 05/27/19 Unknown Rx predniSONE [Deltasone] 40 mg PO DAILY 5 Days #10 tablet 05/27/19 Unknown Rx Prednisone [predniSONE 10 mg 10 mg PO .TAPER #1 tab.ds.pk 06/04/19 Unknown Rx (6-Day Pack, 21 Tabs)] Albuterol INH(or & Nicu Only) 2 puff IH QID PRN #8.5 gram 06/09/19 Unknown Rx [ProAir HFA Inhaler] Azithromycin [Zithromax TAB] 500 mg PO QDAY #3 tablet 06/09/19 Unknown Rx Benzonatate [Tessalon Perles] 100 mg PO Q8HR #30 capsule 06/09/19 Unknown Rx predniSONE [Deltasone] 50 mg PO QDAY #10 tab 06/09/19 Unknown Rx levoFLOXacin [Levaquin] 750 mg PO QDAY 4 Days #4 tablet 06/11/19 Unknown Rx Albuterol Sulfate [Proair 90 mcg IH Q4HR PRN #2 aer.pow.ba 06/15/19 Unknown Rx Respiclick] Ipratropium (Nf) [Atrovent] 2 puff IH Q6HR PRN #1 inha 06/15/19 Unknown Rx Allergies Allergy/AdvReac Type Severity Reaction Status Date / Time cephalexin monohydrate Allergy Rash Verified 06/04/19 18:04 [From Keflex] aripiprazole [From Abilify] AdvReac "tardive Verified 06/04/19 18:04 dyskinesia" haloperidol [From Haldol] AdvReac pain Verified 05/27/19 16:38 haloperidol lactate AdvReac pain Verified 06/04/19 18:04 [From Haldol] lisinopril AdvReac "it hurts Verified 06/04/19 18:04 my head" lithium AdvReac "It makes Verified 06/04/19 18:04 me mad" Phenothiazines AdvReac pain Verified 06/04/19 18:04 quetiapine fumarate AdvReac pain Verified 06/04/19 18:04 [From Seroquel] risperidone [From Risperdal] AdvReac tardive Verified 06/04/19 18:04 dyskinesia steroids Allergy Unknown Uncoded 06/04/19 18:04 ED Review of Systems ROS: Stated complaint: KARISHMA Other details as noted in HPI Constitutional: see HPI. denies: fever ENT: congestion Respiratory: cough, shortness of breath Cardiovascular: denies: syncope Gastrointestinal: denies: abdominal pain Genitourinary: denies: dysuria Musculoskeletal: as per HPI Skin: as per HPI Neurological: as per HPI Psychiatric: anxiety. denies: homicidal thoughts, suicidal thoughts Hematological/Lymphatic: as per HPI ED Past Medical Hx - Past Medical History Previous Medical History?: Yes Hx Congestive Heart Failure: No Hx Diabetes: No Hx Kidney Stones: Yes Hx Psychiatric Treatment: Yes (manic depression) Hx Asthma: Yes Hx COPD: Yes Hx HIV: Yes Additional medical history: bronchitis. neurogenic bladder. Multiple prior UTIs and kidney stone - Surgical History Past Surgical History?: Yes Additional Surgical History: hysterectomy. hemorrhoid - Social History Smoking Status: Current Every Day Smoker Substance Use Type: None - Medications Home Medications: Home Medications Medication Instructions Recorded Confirmed Last Taken Type Aspirin EC [Halfprin EC] 81 mg PO QDAY #30 tablet. 02/05/19 Unknown Rx Nitroglycerin [Nitrostat] 0.4 mg SL Q5M PRN #30 tablet 02/05/19 Unknown Rx Pantoprazole [Protonix TAB] 40 mg PO QDAY #30 tablet 02/05/19 Unknown Rx Pravastatin [Pravachol] 20 mg PO QHS #30 tablet 02/05/19 Unknown Rx Albuterol INH(or & Nicu Only) 2 puff IH QID PRN #1 inh 05/15/19 Unknown Rx [ProAir HFA Inhaler] Albuterol INH(or & Nicu Only) 1 puff IH Q4-6H PRN #1 inha 05/24/19 Unknown Rx [ProAir HFA Inhaler] Brompheniramine/Pseudoephed/Dm 5 ml PO Q6H PRN #240 syrup 05/24/19 Unknown Rx [Xfwrihcvix-Nabripwbrqe-Wg Syr] Sulfamethoxazole/Trimethoprim 1 each PO BID #20 tablet 05/25/19 Unknown Rx [Bactrim DS TAB] Acetaminophen [Tylenol] 650 mg PO QID #30 capsule 05/27/19 Unknown Rx Nitrofurantoin [place]/M-Cryst 100 mg PO BID 7 Days #14 capsule 05/27/19 Unknown Rx [Macrobid CAP] Permethrin 5% [Acticin 5% CREAM] 1 applicatio TP ONCE #1 tube 05/27/19 Unknown Rx predniSONE [Deltasone] 40 mg PO DAILY 5 Days #10 tablet 05/27/19 Unknown Rx Prednisone [predniSONE 10 mg 10 mg PO .TAPER #1 tab.ds.pk 06/04/19 Unknown Rx (6-Day Pack, 21 Tabs)] Albuterol INH(or & Nicu Only) 2 puff IH QID PRN #8.5 gram 06/09/19 Unknown Rx [ProAir HFA Inhaler] Azithromycin [Zithromax TAB] 500 mg PO QDAY #3 tablet 06/09/19 Unknown Rx Benzonatate [Tessalon Perles] 100 mg PO Q8HR #30 capsule 06/09/19 Unknown Rx predniSONE [Deltasone] 50 mg PO QDAY #10 tab 06/09/19 Unknown Rx levoFLOXacin [Levaquin] 750 mg PO QDAY 4 Days #4 tablet 06/11/19 Unknown Rx Albuterol Sulfate [Proair 90 mcg IH Q4HR PRN #2 aer.pow.ba 06/15/19 Unknown Rx Respiclick] Ipratropium (Nf) [Atrovent] 2 puff IH Q6HR PRN #1 inha 06/15/19 Unknown Rx ED Physical Exam - General Limitations: No Limitations General appearance: alert, anxious - Head Head exam: Present: atraumatic, normocephalic - Eye Eye exam: Present: normal appearance, EOMI. Absent: nystagmus - ENT ENT exam: Present: normal exam, normal orophraynx, mucous membranes moist, normal external ear exam - Neck Neck exam: Present: normal inspection, full ROM. Absent: tenderness, meningismus - Respiratory Respiratory exam: Present: decreased breath sounds. Absent: respiratory distress, wheezes, rales, rhonchi, stridor - Cardiovascular Cardiovascular Exam: Present: regular rate, normal rhythm, normal heart sounds. Absent: bradycardia, tachycardia, irregular rhythm, systolic murmur, diastolic murmur, rubs, gallop - GI/Abdominal GI/Abdominal exam: Present: soft. Absent: distended, tenderness, guarding, rebound, rigid, pulsatile mass - Extremities Exam Extremities exam: Present: normal inspection, full ROM, other (2+ pulses noted in the bilateral upper and lower extremities. There is no palpable cord. negative Homans sign. Muscular compartments are soft. The pelvis is stable.). Absent: calf tenderness - Back Exam Back exam: Present: normal inspection, full ROM. Absent: tenderness, CVA tenderness (R), muscle spasm, paraspinal tenderness, vertebral tenderness - Neurological Exam Neurological exam: Present: alert, oriented X3, normal gait, other (There is no facial droop. The tongue is midline. Extraocular movements are intact bilaterally. There is 5 out of 5 strength in bilateral upper and lower extremities. Sensation is intact to light touch bilateral upper and lower extremities. There is a normal gait.). Absent: motor sensory deficit - Psychiatric Psychiatric exam: Present: normal mood, anxious. Absent: homicidal ideation, suicidal ideation - Skin Skin exam: Present: warm, dry, intact, normal color. Absent: rash ED Course Vital Signs 06/15/19 06/15/19 06/15/19 16:41 19:05 19:09 Temperature 97.5 F L Pulse Rate 73 67 67 Respiratory 22 17 17 Rate Blood Pressure 166/93 160/95 [Right] O2 Sat by Pulse 96 97 97 Oximetry ED Medical Decision Making - Lab Data Result diagrams: 06/15/19 16:50 06/15/19 16:50 Vital Signs 06/15/19 06/15/19 06/15/19 16:41 19:05 19:09 Temperature 97.5 F L Pulse Rate 73 67 67 Respiratory 22 17 17 Rate Blood Pressure 166/93 160/95 [Right] O2 Sat by Pulse 96 97 97 Oximetry Lab Results 06/15/19 06/15/19 06/15/19 Range/Units 16:50 16:50 16:50 WBC 5.7 (4.5-11.0) K/mm3 RBC 4.29 (3.65-5.03) M/mm3 Hgb 13.4 (10.1-14.3) gm/dl Hct 39.9 (30.3-42.9) % MCV 93 (79-97) fl MCH 31 (28-32) pg MCHC 34 (30-34) % RDW 13.5 (13.2-15.2) % Plt Count 243 (140-440) K/mm3 Lymph % (Auto) 44.8 H (13.4-35.0) % [place] % (Auto) 11.9 H (0.0-7.3) % Eos % (Auto) 0.5 (0.0-4.3) % Baso % (Auto) 0.1 (0.0-1.8) % Lymph # 2.5 (1.2-5.4) K/mm3 [place] # 0.7 (0.0-0.8) K/mm3 Eos # 0.0 (0.0-0.4) K/mm3 Baso # 0.0 (0.0-0.1) K/mm3 Seg Neutrophils % 42.7 (40.0-70.0) % Seg Neutrophils # 2.4 (1.8-7.7) K/mm3 Sodium 141 (137-145) mmol/L Potassium 4.3 (3.6-5.0) mmol/L Chloride 98.5 (98-107) mmol/L Carbon Dioxide 31 H (22-30) mmol/L Anion Gap 16 mmol/L BUN 16 (7-17) mg/dL Creatinine 0.8 (0.7-1.2) mg/dL Estimated GFR > 60 ml/min BUN/Creatinine Ratio 20 % Glucose 126 H (65-100) mg/dL Calcium 9.0 (8.4-10.2) mg/dL Total Creatine Kinase 94 (30-135) units/L CK-MB (CK-2) 2.8 (0.0-4.0) ng/mL CK-MB (CK-2) Rel Index 2.9 (0-4) Troponin T < 0.010 (0.00-0.029) ng/mL - EKG Data -: EKG Interpreted by Dc EKG shows normal: sinus rhythm Rate: normal - EKG Data When compared to previous EKG there are: no significant change 06/15/19 20:41 The EKG today has minimal motion artifact. This is a sinus rhythm, 74 bpm, borderline rightward axis deviation, QTC within normal limits, motion artifact, no endorsement of chest pain, not a STEMI, unchanged from prior EKG from May 2019 - Radiology Data Radiology results: report reviewed, image reviewed Print Report Referring Physician: ELIJAH ADAMSON Patient Name: PIPER VIDAL Date of : 1955 Sex: Female Report Date: 2019-06-15 Report Status: Finalized Findings [facility] [address] [place] [address] XRay Report Signed Patient: PIPER VIDAL MR#: [id number] : 1955 Acct:[id number] Age/Sex: 64 / F ADM Date: 06/15/19 Loc: ED Attending Dr: Ordering Physician: DARLEEN MORENO Date of Service: 06/15/19 Procedure(s): XR chest routine 2V Accession Number(s): [id number] cc: DARLEEN MORENO Fluoro Time In Minutes: CHEST 2 VIEWS INDICATION: Dyspnea. COMPARISON: 06/11/2019 FINDINGS: Support devices: None. Heart: Within normal limits. Lungs/pleura: No acute air space or interstitial disease. No pneumothorax. Additional findings: None. IMPRESSION: 1. No acute findings. Signer Name: Ceferino Valladares MD Signed: 06/15/2019 5:20 PM Workstation Name: [id number] Transcribed By: JW Dictated By: Ceferino Valladares MD Electronically Authenticated By: Ceferino Valladares MD Signed Date/Time: 06/15/191719 DD/ 19 TD/TT: - Medical Decision Making Differential diagnosis, including but not limited to: COPD, asthma, bronchitis, malingering, secondary gain Assessment and plan: 64-year-old female presenting with chronic history of shortness of breath. She is afebrile with reassuring vital signs. Her physical examination is unremarkable. She is resting comfortably on her stretcher, wit hout wheezing, and without any acute distress. She is saturating anywhere from 96 to 98% on room oxygen. I have not personally witnessed this patient experienced an episode of hypoxia in the many hours that she has been here. Furthermore, she has been here multiple times within the past few days and weeks, and has had fairly unremarkable work-ups. She is clinically sober at this time, alert and oriented x3, walking with a steady gait, and is not homicidal or suicidal. She does not meet criteria for 1013 hold or psychiatric hold. She does not meet criteria for hospitalization. She continues to smoke tobacco. She will be given a good Rx affordable prescription card, and she will be encouraged to take the nebulizer therapy that she was recently prescribed. She will also be given a list of outpatient home theater specialist and her primary care doctors. She can purchase [id number] nicotine cessation gum or tablets/patches should she so desire. Critical care attestation.: If time is entered above; I have spent that time in minutes in the direct care of this critically ill patient, excluding procedure time. ED Disposition Clinical Impression: COPD (chronic obstructive pulmonary disease) Disposition: DC-01 TO HOME OR SELFCARE Is pt being admited?: No Does the pt Need Aspirin: No Condition: Stable Instructions: Chronic Obstructive Pulmonary Disease (ED) Additional Instructions: Take the breathing medications as used/needed and directed. Discontinue smoking cigarettes and avoid secondhand exposure to cigarettes. Patient may purchase [id number] tobacco cessation products, such as nicotine gum or patches at her local pharmacy. Patient may also use the good Rx affordable prescription card to obtain affordable prescriptions. Recommend that the patient follow-up with a primary care doctor or home theater specialist within the next 7 to 10 days. For patient's convenience, local lung specialist and primary care doctors have been listed. Patient may elect to follow-up with any of the listed physicians, or physician groups. Please return to the emergency room right away with new, worsened or different symptoms, or symptoms not present on the initial emergency room evaluation. Referrals: HOLLIE HI MD [Staff Physician] - 3-5 Days [facility] [Provider Group] - 3-5 Days [facility] [Provider Group] - 3-5 Days REGGIE ZEPEDA MD [Staff Physician] - 3-5 Days EZIO BUENROSTRO MD [Staff Physician] - 3-5 Days LORRAINE BEAR MD [Staff Physician] - 3-5 Days FAMILIA RODGERS MD [Staff Physician] - 3-5 Days
[2019-06-15 21:36] VITALS: BP 165/81
[2019-06-15] MEDS ORDERED: ALBUTEROL 2.5 MG/3 ML NEBU IH ONE ×2 (21:49→21:51)
== END 2019-06-15 22:05 | disposition home or self-care (01) ==
LOC: ED 16:36
DX: J44.9 Chronic obstructive pulmonary disease, unspecified (principal); F31.9 Bipolar disorder, unspecified; Z79.899 Other long term (current) drug therapy; Z87.442 Personal history of urinary calculi; Z90.710 Acquired absence of both cervix and uterus; Z88.8 Allergy status to other drugs, medicaments and biological substances
CPT/HCPCS: 36415; 71046; 80048; 82550; 82553; 84484; 85025; 93005; 93010; 94640

== ENCOUNTER 2019-06-16 15:12 | Emergency (ER) | payer MEDICARE ==
--- NOTE | 2019-06-16 15:18 | Emergency Department Report ---
Blank Doc - Documentation Documentation: 64-year-old female that presents with cp and sob. This initial assessment/diagnostic orders/clinical plan/treatment(s) is/are subject to change based on patient's health status, clinical progression and re- assessment by fellow clinical providers in the ED. Further treatment and workup at subsequent clinical providers discretion. Patient/guardians urged not to elope from the ED as their condition may be serious if not clinically assessed and managed. Initial orders include: 1- Patient sent to MAIN ED for further evaluation and treatment 2- cardiac workup
[2019-06-16 15:39] LABS: Basophils % (Auto) 0.2 % (0.0-1.8); Eosinophils # (Auto) 0.1 K/mm3 (0.0-0.4); Eosinophils % (Auto) 0.9 % (0.0-4.3); Hematocrit 38.7 % (30.3-42.9); Lymphocytes # (Auto) 2.6 K/mm3 (1.2-5.4); Lymphocytes % (Auto) 46.5 % (13.4-35.0); Mean Corpuscular HGB Conc 34 % (30-34); Mean Corpuscular Volume 93 fl (79-97); Monocytes # (Auto) 0.4 K/mm3 (0.0-0.8); Monocytes % (Auto) 7.6 % (0.0-7.3); Platelet Count 273 K/mm3 (140-440); Red Blood Count 4.18 M/mm3 (3.65-5.03); Red Cell Distribution Width 13.7 % (13.2-15.2)
[2019-06-16 15:49] LABS: INR 0.97 (0.87-1.13)
[2019-06-16 15:50] LABS: Partial Thromboplastin Time 26.2 Sec. (24.2-36.6)
[2019-06-16 15:56] LABS: Alanine Aminotransferase 53 units/L (7-56); Albumin 3.9 g/dL (3.9-5); BUN/Creatinine Ratio 16; Blood Urea Nitrogen 13 mg/dL (7-17); Calcium 9.1 mg/dL (8.4-10.2); Hemolysis Index 11
[2019-06-16 20:52] VITALS: BP 143/89
[2019-06-16] MEDS ORDERED: ALBUTEROL 2.5 MG/3 ML NEBU IH ONE (20:54)
[2019-06-16] MEDS ORDERED: IPRATROPIUM 0.02% NEBU 2.5 ML IH ONE (20:55)
[2019-06-16] MEDS ORDERED: DEXAMETHASONE 4 MG TAB PO ONE (21:59)
--- NOTE | 2019-06-16 22:04 | Emergency Department Report ---
HPI - General Chief Complaint: Shoulder Injury Time Seen by Provider: 06/16/19 15:17 - HPI HPI: 64-year-old female presents to the emergency department with a complaint of shortness of breath, wheezing and a mixed dry and productive cough. The patient was seen here yesterday, as well as multiple times over the past few months, all for similar symptoms. She has a past medical history of asthma, COPD, HIV, kidney stones, bipolar disorder. In the past 1 month the patient has had a negative CT angiography, negative CT chest, as well as a negative CT abdomen and pelvis that did not show any acute pathology. The patient has been here multiple times recently and has been discharged home with albuterol inhaler and nebulizer treatments. The patient says that she feels best when she has oxygen but she is not oxygen dependent at home. She continues to smoke heavily. Patient does not have any primary care physician but says she was on her way to go to [facility] when she decided to come here instead for her symptoms. No recent travel or sick contacts at home. ED Past Medical Hx - Past Medical History Previous Medical History?: Yes Hx Congestive Heart Failure: No Hx Diabetes: No Hx Kidney Stones: Yes Hx Psychiatric Treatment: Yes (manic depression) Hx Asthma: Yes Hx COPD: Yes Hx HIV: Yes Additional medical history: bronchitis. neurogenic bladder. Multiple prior UTIs and kidney stone - Surgical History Past Surgical History?: Yes Additional Surgical History: hysterectomy. hemorrhoid - Social History Smoking Status: Current Every Day Smoker Substance Use Type: None - Medications Home Medications: Home Medications Medication Instructions Recorded Confirmed Last Taken Type Aspirin EC [Halfprin EC] 81 mg PO QDAY #30 tablet. 02/05/19 Unknown Rx Nitroglycerin [Nitrostat] 0.4 mg SL Q5M PRN #30 tablet 02/05/19 Unknown Rx Pantoprazole [Protonix TAB] 40 mg PO QDAY #30 tablet 02/05/19 Unknown Rx Pravastatin [Pravachol] 20 mg PO QHS #30 tablet 02/05/19 Unknown Rx Albuterol INH(or & Nicu Only) 2 puff IH QID PRN #1 inh 05/15/19 Unknown Rx [ProAir HFA Inhaler] Albuterol INH(or & Nicu Only) 1 puff IH Q4-6H PRN #1 inha 05/24/19 Unknown Rx [ProAir HFA Inhaler] Brompheniramine/Pseudoephed/Dm 5 ml PO Q6H PRN #240 syrup 05/24/19 Unknown Rx [Xvvdjeiygm-Cuwstwjgozw-Zy Syr] Sulfamethoxazole/Trimethoprim 1 each PO BID #20 tablet 05/25/19 Unknown Rx [Bactrim DS TAB] Acetaminophen [Tylenol] 650 mg PO QID #30 capsule 05/27/19 Unknown Rx Nitrofurantoin [place]/M-Cryst 100 mg PO BID 7 Days #14 capsule 05/27/19 Unknown Rx [Macrobid CAP] Permethrin 5% [Acticin 5% CREAM] 1 applicatio TP ONCE #1 tube 05/27/19 Unknown Rx predniSONE [Deltasone] 40 mg PO DAILY 5 Days #10 tablet 05/27/19 Unknown Rx Prednisone [predniSONE 10 mg 10 mg PO .TAPER #1 tab.ds.pk 06/04/19 Unknown Rx (6-Day Pack, 21 Tabs)] Albuterol INH(or & Nicu Only) 2 puff IH QID PRN #8.5 gram 06/09/19 Unknown Rx [ProAir HFA Inhaler] Azithromycin [Zithromax TAB] 500 mg PO QDAY #3 tablet 06/09/19 Unknown Rx Benzonatate [Tessalon Perles] 100 mg PO Q8HR #30 capsule 06/09/19 Unknown Rx predniSONE [Deltasone] 50 mg PO QDAY #10 tab 06/09/19 Unknown Rx levoFLOXacin [Levaquin] 750 mg PO QDAY 4 Days #4 tablet 06/11/19 Unknown Rx Albuterol Sulfate [Proair 90 mcg IH Q4HR PRN #2 aer.pow.ba 06/15/19 Unknown Rx Respiclick] Ipratropium (Nf) [Atrovent] 2 puff IH Q6HR PRN #1 inha 06/15/19 Unknown Rx ED Review of Systems ROS: Stated complaint: KARISHMA Other details as noted in HPI Comment: All other systems reviewed and negative Constitutional: denies: chills, fever Eyes: denies: eye pain, vision change ENT: denies: ear pain, throat pain Respiratory: cough, shortness of breath, wheezing Cardiovascular: denies: chest pain, palpitations Gastrointestinal: denies: abdominal pain, vomiting Genitourinary: denies: dysuria, discharge Musculoskeletal: denies: back pain, arthralgia Skin: denies: rash, lesions Neurological: denies: headache, weakness Physical Exam - Physical Exam Vital Signs: Vital Signs 06/16/19 06/16/19 06/16/19 15:18 20:51 21:11 Temperature 98.2 F 98.5 F Pulse Rate 77 70 Pulse Rate [ 75 Bilateral Throughout] Respiratory 20 20 Rate Respiratory 18 Rate [Bilateral Throughout] Blood Pressure 130/60 Blood Pressure 143/89 [Right] O2 Sat by Pulse 91 96 Oximetry Physical Exam: GENERAL: The patient is well-developed well-nourished. HENT: Normocephalic. Atraumatic. Patient has moist mucous membranes. EYES: Extraocular motions are intact. NECK: Supple. Trachea is midline. CHEST/LUNGS: Mild wheezing throughout the chest. No tachypnea or accessory muscle use. Dry cough heard during examination. There is no respiratory distress noted. HEART/CARDIOVASCULAR: Regular. There is no tachycardia. ABDOMEN: Abdomen is soft, nontender. Patient has normal bowel sounds. SKIN: Skin is warm and dry. NEURO: The patient is awake, alert, and oriented. The patient is cooperative. The patient has no focal neurologic deficits. Normal speech. MUSCULOSKELETAL: There is no tenderness or deformity. There is no evidence of acute injury. ED Course Vital Signs 06/16/19 06/16/19 06/16/19 15:18 20:51 21:11 Temperature 98.2 F 98.5 F Pulse Rate 77 70 Pulse Rate [ 75 Bilateral Throughout] Respiratory 20 20 Rate Respiratory 18 Rate [Bilateral Throughout] Blood Pressure 130/60 Blood Pressure 143/89 [Right] O2 Sat by Pulse 91 96 Oximetry ED Medical Decision Making - Lab Data Result diagrams: 06/16/19 15:23 06/16/19 15:23 - EKG Data -: EKG Interpreted by Me EKG shows normal: sinus rhythm, axis, intervals, QRS complexes, ST-T waves Rate: normal - EKG Data When compared to previous EKG there are: no significant change Interpretation: unchanged when compared t (05/15/19) - Radiology Data Radiology results: image reviewed interpreted by me: Chest x-ray shows hyperinflation of the lungs and flattening of the diaphragms consistent with COPD/emphysema. No pleural effusions, obvious pneumonia and no pneumothorax. - Medical Decision Making This patient presents to the emergency department for the complaints of shortness of breath, wheezing and coughing, for which she has been to this emergency department many times over the past few months. The patient was here yesterday for the same symptoms. Today she does not appear to have any signs of any respiratory or acute distress. She had some mild wheezing/bronchospasm. Chest x-ray does not show any pneumonia, pleural effusions, pneumothorax, focal consolidation, or any other acute process. Her labs have been unremarkable. Vital signs stable throughout her ED course including being afebrile and no hypoxia. The patient was given a breathing treatment with some improvement in her bronchospasm. She refuses any steroids. The patient has had multiple negative CT imaging studies in the past month including CT angiography and a CT of the chest with IV contrast that were negative for PE or any other acute process or pathology. The patient has been instructed to follow-up with primary care, and she has also been given a referral for pulmonology. We had a long conversation regarding smoking cessation. She already has prescriptions for albuterol inhalers. The patient will return to the emergency department with any worsening of her symptoms or any acute distress. - Differential Diagnosis COPD, asthma, bronchitis, pneumonia Critical Care Time: No Critical care attestation.: If time is entered above; I have spent that time in minutes in the direct care of this critically ill patient, excluding procedure time. ED Disposition Clinical Impression: COPD (chronic obstructive pulmonary disease) Qualifiers: COPD type: unspecified COPD Qualified Code(s): J44.9 - Chronic obstructive pulmonary disease, unspecified Disposition: DC- TO HOME OR SELFCARE Is pt being admited?: No Condition: Stable Instructions: Chronic Obstructive Pulmonary Disease (ED) Additional Instructions: Please follow-up with a primary care physician in the next few days. I am also giving you a referral for a local gravel inspector, Dr. Coughlin, to follow-up regarding your COPD and chronic shortness of breath. Use the albuterol treatments that you were previously prescribed. Return to the emergency department with any worsening of your symptoms or any acute distress. Referrals: NGOZI BAUM MD [Primary Care Provider] - 2-3 Days REGGIE COUGHLIN MD [Staff Physician] - 2-[address] [facility] [Outside] - 2-3 Days Time of Disposition: 22:06
== END 2019-06-16 22:17 | disposition home or self-care (01) ==
LOC: ED 15:12
DX: J44.9 Chronic obstructive pulmonary disease, unspecified (principal); F17.200 Nicotine dependence, unspecified, uncomplicated; F32.9 Major depressive disorder, single episode, unspecified; Z88.8 Allergy status to other drugs, medicaments and biological substances; Z90.710 Acquired absence of both cervix and uterus; Z87.442 Personal history of urinary calculi; Z21 Asymptomatic human immunodeficiency virus [HIV] infection status; Z79.899 Other long term (current) drug therapy
CPT/HCPCS: 36415; 71046; 80053; 84484; 85025; 85610; 85730; 93005; 93010; 94640; 94644; J8540

== ENCOUNTER 2019-06-17 18:54 | Emergency (ER) | payer MEDICARE ==
[2019-06-17 21:34] VITALS: BP 162/77
== END 2019-06-17 21:00 | disposition left against medical advice (07) ==
LOC: ED 18:54
DX: R06.02 Shortness of breath (principal); Z53.21 Procedure and treatment not carried out due to patient leaving prior to being seen by health care provider

== ENCOUNTER 2020-07-05 21:51 | Emergency (ER) | payer MEDICARE ==
[2020-07-06 00:37] LABS: Bilirubin,Urine NEG (Negative); Blood,Urine NEG (Negative); Color,Urine Yellow (Yellow); Hyaline Casts,Urine 1 /LPF; Mucus,Urine FEW /HPF; Protein,Urine <15 mg/dL mg/dL (Negative); Urobilinogen,Urine < 2.0 mg/dL (<2.0)
--- NOTE | 2020-07-06 01:30 | Emergency Department Report ---
ED Female HPI - General Chief complaint: Back Pain/Injury Stated complaint: SEVERE BACK PAIN Time Seen by Provider: 07/06/20 00:32 Source: patient, EMS Mode of arrival: Ambulatory Limitations: Physical Limitation - History of Present Illness MD Complaint: dysuria -: Gradual Location: suprapubic Radiation: suprapubic Severity: mild Quality: dull, burning Consistency: constant Improves with: none Worsens with: urination Are you Now?: No Associated Symptoms: denies: vaginal bleeding, nausea/vomiting, fever/chills, loss of appetite, dysuria, hematuria, shortness of breath, syncope, weakness - Related Data Sexually active: No Previous Rx's Medication Instructions Recorded Last Taken Type Aspirin EC [Halfprin EC] 81 mg PO QDAY #30 tablet. 02/05/19 Unknown Rx Nitroglycerin [Nitrostat] 0.4 mg SL Q5M PRN #30 tablet 02/05/19 Unknown Rx Pantoprazole [Protonix TAB] 40 mg PO QDAY #30 tablet 02/05/19 Unknown Rx Pravastatin [Pravachol] 20 mg PO QHS #30 tablet 02/05/19 Unknown Rx Albuterol Mdi (or & Nicu Only) 2 puff IH QID PRN #1 inh 05/15/19 Unknown Rx [ProAir HFA Inhaler] Albuterol Mdi (or & Nicu Only) 1 puff IH Q4-6H PRN #1 inha 05/24/19 Unknown Rx [ProAir HFA Inhaler] Brompheniramine/Pseudoephed/Dm 5 ml PO Q6H PRN #240 syrup 05/24/19 Unknown Rx [Uxdvvpekom-Abntrwboysy-Xw Syr] Sulfamethoxazole/Trimethoprim 1 each PO BID #20 tablet 05/25/19 Unknown Rx [Bactrim DS TAB] Acetaminophen [Tylenol] 650 mg PO QID #30 capsule 05/27/19 Unknown Rx Nitrofurantoin [place]/M-Cryst 100 mg PO BID 7 Days #14 capsule 05/27/19 Unknown Rx [Macrobid CAP] Permethrin 5% [Acticin 5% CREAM] 1 applicatio TP ONCE #1 tube 05/27/19 Unknown Rx predniSONE [Deltasone] 40 mg PO DAILY 5 Days #10 tablet 05/27/19 Unknown Rx Prednisone [predniSONE 10 mg 10 mg PO .TAPER #1 tab.ds.pk 06/04/19 Unknown Rx (6-Day Pack, 21 Tabs)] Albuterol Mdi (or & Nicu Only) 2 puff IH QID PRN #8.5 gram 06/09/19 Unknown Rx [ProAir HFA Inhaler] Azithromycin [Zithromax TAB] 500 mg PO QDAY #3 tablet 06/09/19 Unknown Rx Benzonatate [Tessalon Perles] 100 mg PO Q8HR #30 capsule 06/09/19 Unknown Rx predniSONE [Deltasone] 50 mg PO QDAY #10 tab 06/09/19 Unknown Rx levoFLOXacin [Levaquin] 750 mg PO QDAY 4 Days #4 tablet 06/11/19 Unknown Rx Albuterol Sulfate [Proair 90 mcg IH Q4HR PRN #2 aer.pow.ba 06/15/19 Unknown Rx Respiclick] Ipratropium (Nf) [Atrovent] 2 puff IH Q6HR PRN #1 inha 06/15/19 Unknown Rx Nitrofurantoin [place]/M-Cryst 100 mg PO Q12HR #20 capsule 07/06/20 Unknown Rx [Macrobid CAP] Phenazopyridine [Pyridium] 200 mg PO TID #9 tab 07/06/20 Unknown Rx Allergies Allergy/AdvReac Type Severity Reaction Status Date / Time cephalexin monohydrate Allergy Rash Verified 06/04/19 18:04 [From Keflex] aripiprazole [From Abilify] AdvReac "tardive Verified 06/04/19 18:04 dyskinesia" haloperidol [From Haldol] AdvReac pain Verified 05/27/19 16:38 haloperidol lactate AdvReac pain Verified 06/04/19 18:04 [From Haldol] lisinopril AdvReac "it hurts Verified 06/04/19 18:04 my head" lithium AdvReac "It makes Verified 06/04/19 18:04 me mad" Phenothiazines AdvReac pain Verified 06/04/19 18:04 quetiapine fumarate AdvReac pain Verified 06/04/19 18:04 [From Seroquel] risperidone [From Risperdal] AdvReac tardive Verified 06/04/19 18:04 dyskinesia steroids Allergy Unknown Uncoded 06/04/19 18:04 ED Review of Systems ROS: Stated complaint: SEVERE BACK PAIN Other details as noted in HPI Comment: All other systems reviewed and negative ED Past Medical Hx - Past Medical History Previous Medical History?: Yes Hx Congestive Heart Failure: No Hx Diabetes: No Hx Kidney Stones: Yes Hx Psychiatric Treatment: Yes (manic depression) Hx Asthma: Yes Hx COPD: Yes Hx HIV: Yes Additional medical history: bronchitis. neurogenic bladder. Multiple prior UTIs and kidney stone - Surgical History Past Surgical History?: Yes Additional Surgical History: hysterectomy. hemorrhoid - Social History Smoking Status: Current Every Day Smoker Substance Use Type: None - Medications Home Medications: Home Medications Medication Instructions Recorded Confirmed Last Taken Type Aspirin EC [Halfprin EC] 81 mg PO QDAY #30 tablet. 02/05/19 Unknown Rx Nitroglycerin [Nitrostat] 0.4 mg SL Q5M PRN #30 tablet 02/05/19 Unknown Rx Pantoprazole [Protonix TAB] 40 mg PO QDAY #30 tablet 02/05/19 Unknown Rx Pravastatin [Pravachol] 20 mg PO QHS #30 tablet 02/05/19 Unknown Rx Albuterol Mdi (or & Nicu Only) 2 puff IH QID PRN #1 inh 05/15/19 Unknown Rx [ProAir HFA Inhaler] Albuterol Mdi (or & Nicu Only) 1 puff IH Q4-6H PRN #1 inha 05/24/19 Unknown Rx [ProAir HFA Inhaler] Brompheniramine/Pseudoephed/Dm 5 ml PO Q6H PRN #240 syrup 05/24/19 Unknown Rx [Onvikwbdmm-Ihttgzaojok-Ly Syr] Sulfamethoxazole/Trimethoprim 1 each PO BID #20 tablet 05/25/19 Unknown Rx [Bactrim DS TAB] Acetaminophen [Tylenol] 650 mg PO QID #30 capsule 05/27/19 Unknown Rx Nitrofurantoin [place]/M-Cryst 100 mg PO BID 7 Days #14 capsule 05/27/19 Unknown Rx [Macrobid CAP] Permethrin 5% [Acticin 5% CREAM] 1 applicatio TP ONCE #1 tube 05/27/19 Unknown Rx predniSONE [Deltasone] 40 mg PO DAILY 5 Days #10 tablet 05/27/19 Unknown Rx Prednisone [predniSONE 10 mg 10 mg PO .TAPER #1 tab.ds.pk 06/04/19 Unknown Rx (6-Day Pack, 21 Tabs)] Albuterol Mdi (or & Nicu Only) 2 puff IH QID PRN #8.5 gram 06/09/19 Unknown Rx [ProAir HFA Inhaler] Azithromycin [Zithromax TAB] 500 mg PO QDAY #3 tablet 06/09/19 Unknown Rx Benzonatate [Tessalon Perles] 100 mg PO Q8HR #30 capsule 06/09/19 Unknown Rx predniSONE [Deltasone] 50 mg PO QDAY #10 tab 06/09/19 Unknown Rx levoFLOXacin [Levaquin] 750 mg PO QDAY 4 Days #4 tablet 06/11/19 Unknown Rx Albuterol Sulfate [Proair 90 mcg IH Q4HR PRN #2 aer.pow.ba 06/15/19 Unknown Rx Respiclick] Ipratropium (Nf) [Atrovent] 2 puff IH Q6HR PRN #1 inha 06/15/19 Unknown Rx Nitrofurantoin [place]/M-Cryst 100 mg PO Q12HR #20 capsule 07/06/20 Unknown Rx [Macrobid CAP] Phenazopyridine [Pyridium] 200 mg PO TID #9 tab 07/06/20 Unknown Rx ED Physical Exam - General Limitations: Physical Limitation General appearance: alert, in no apparent distress - Head Head exam: Present: atraumatic, normocephalic - Eye Eye exam: Present: normal appearance, PERRL, EOMI Pupils: Present: normal accommodation - ENT ENT exam: Present: normal exam, mucous membranes moist - Neck Neck exam: Present: normal inspection, full ROM - Respiratory Respiratory exam: Present: normal lung sounds bilaterally. Absent: respiratory distress - Cardiovascular Cardiovascular Exam: Present: regular rate, normal rhythm. Absent: systolic murmur, diastolic murmur, rubs, gallop - GI/Abdominal GI/Abdominal exam: Present: soft, normal bowel sounds - Extremities Exam Extremities exam: Present: normal inspection, normal capillary refill - Back Exam Back exam: Present: normal inspection. Absent: CVA tenderness (R), CVA tenderness (L) - Neurological Exam Neurological exam: Present: alert, oriented X3, CN II-XII intact, normal gait - Psychiatric Psychiatric exam: Present: normal affect, normal mood - Skin Skin exam: Present: warm, dry, intact, normal color. Absent: rash ED Course Vital Signs 07/05/20 23:13 Temperature 97.7 F Pulse Rate 88 Respiratory 14 Rate Blood Pressure 152/71 O2 Sat by Pulse 98 Oximetry ED Medical Decision Making - Medical Decision Making This patient presents to the emergency department with symptoms consistent with acute uncomplicated cystitis. No systemic symptoms. Not septic. She is well- appearing. Low suspicion for acute pyelonephritis given the lack of fever, CVA tenderness, or systemic features. Low suspicion for for kidney stone or infected stone. Not in age range for and her history and and presentation are complicated. No no indications for labs or imaging at this time. Critical care attestation.: If time is entered above; I have spent that time in minutes in the direct care of this critically ill patient, excluding procedure time. ED Disposition Clinical Impression: UTI (urinary tract infection) Disposition: DC-01 TO HOME OR SELFCARE Is pt being admited?: No Does the pt Need Aspirin: No Condition: Stable Instructions: Urinalysis Test, Urinary Tract Infection, Adult Prescriptions: Nitrofurantoin [place]/M-Cryst [Macrobid CAP] 100 mg PO Q12HR #20 capsule Phenazopyridine [Pyridium] 200 mg PO TID #9 tab Referrals: [facility] [Provider Group] - 3-5 Days
[2020-07-06 01:57] VITALS: BP 129/80
== END 2020-07-06 01:58 | disposition home or self-care (01) ==
LOC: ED 21:51
DX: N39.0 Urinary tract infection, site not specified (principal); J44.9 Chronic obstructive pulmonary disease, unspecified; Z21 Asymptomatic human immunodeficiency virus [HIV] infection status; F17.200 Nicotine dependence, unspecified, uncomplicated; Z90.710 Acquired absence of both cervix and uterus; Z98.890 Other specified postprocedural states; Z79.2 Long term (current) use of antibiotics; Z79.899 Other long term (current) drug therapy; Z88.8 Allergy status to other drugs, medicaments and biological substances
CPT/HCPCS: 81001; 87086

== ENCOUNTER 2020-11-17 19:27 | Emergency (ER) | payer MEDICARE ==
[2020-11-18 08:30] VITALS: BP 138/93
== END 2020-11-18 11:30 | disposition left against medical advice (07) ==
LOC: ED 19:27
DX: M79.604 Pain in right leg (principal); M79.605 Pain in left leg; Z53.21 Procedure and treatment not carried out due to patient leaving prior to being seen by health care provider

== ENCOUNTER 2020-11-18 14:30 | Emergency (ER) | payer MEDICARE ==
[2020-11-18 23:12] VITALS: BP 147/75
== END 2020-11-19 00:25 | disposition home or self-care (01) ==
LOC: ED 14:30
DX: N10 Acute pyelonephritis (principal); N39.0 Urinary tract infection, site not specified; F31.9 Bipolar disorder, unspecified; F25.9 Schizoaffective disorder, unspecified; J45.909 Unspecified asthma, uncomplicated
CPT/HCPCS: 36415; 80053; 81001; 82550; 83735; 85025; 93005; 99283

== ENCOUNTER 2020-12-02 17:57 | Emergency (ER) | payer MEDICARE ==
[2020-12-02] MEDS ORDERED: ASPIRIN 325 MG TAB PO ONE (19:10)
--- NOTE | 2020-12-02 20:15 | XRay Report ---
CHEST 2 VIEWS INDICATION / CLINICAL INFORMATION: chest pain. COMPARISON: 11/30/2020 FINDINGS: SUPPORT DEVICES: None. HEART / MEDIASTINUM: No significant abnormality. LUNGS / PLEURA: No significant pulmonary or pleural abnormality. No pneumothorax. ADDITIONAL FINDINGS: No significant additional findings. IMPRESSION: 1. No acute findings. Signer Name: Kade Salcedo MD Signed: 12/02/2020 8:11 PM Workstation Name: [id number]
[2020-12-02 21:09] LABS: Basophils % (Auto) 0.1 % (0.0-1.8); Hematocrit 39.2 % (30.3-42.9); Hemoglobin 12.9 gm/dl (10.1-14.3); Lymphocytes # (Auto) 1.9 K/mm3 (1.2-5.4); Lymphocytes % (Auto) 13.8 % (13.4-35.0); Mean Corpuscular HGB Conc 33 % (30-34); Mean Corpuscular Volume 96 fl (79-97); Monocytes % (Auto) 7.2 % (0.0-7.3); Platelet Count 328 K/mm3 (140-440); Red Blood Count 4.08 M/mm3 (3.65-5.03); Red Cell Distribution Width 14.3 % (13.2-15.2)
[2020-12-02 21:32] LABS: Alanine Aminotransferase 14 units/L (7-56); Albumin 4.2 g/dL (3.9-5); BUN/Creatinine Ratio 26; Blood Urea Nitrogen 26 mg/dL (7-17); Calcium 9.7 mg/dL (8.4-10.2); Hemolysis Index 6
--- NOTE | 2020-12-03 05:16 | Emergency Department Report ---
ED Chest Pain HPI - General Chief Complaint: Chest Pain Stated Complaint: CP Time Seen by Provider: 12/03/20 03:51 Source: patient, EMS Mode of arrival: Ambulatory Limitations: No Limitations - History of Present Illness Initial Comments: 65-year-old female presents to the emergency department with a complaint of generalized chest discomfort and shortness of breath. The patient was just admitted here on 11/30 for a COPD exacerbation, UTI, pyelonephritis, and was subsequently found to be positive for COVID-19. Patient left AMA yesterday morning, 12/02, before receiving a bed upstairs. Patient says that she returned because the chest discomfort was worse than it had been when she was admitted. She does have a history of COPD but is not oxygen dependent. She appears to have a history of schizoaffective disorder and depression. She is a tobacco smoker, but denies any illicit drug use. She has not taken anything for symptoms prior to presentation today. - Related Data Previous Rx's Medication Instructions Recorded Last Taken Type Aspirin EC [Halfprin EC] 81 mg PO QDAY #30 tablet. 02/05/19 Unknown Rx Nitroglycerin [Nitrostat] 0.4 mg SL Q5M PRN #30 tablet 02/05/19 Unknown Rx Pantoprazole [Protonix TAB] 40 mg PO QDAY #30 tablet 02/05/19 Unknown Rx Pravastatin [Pravachol] 20 mg PO QHS #30 tablet 02/05/19 Unknown Rx Albuterol Mdi (or & Nicu Only) 1 puff IH Q4-6H PRN #1 inha 05/24/19 Unknown Rx [ProAir HFA Inhaler] Brompheniramine/Pseudoephed/Dm 5 ml PO Q6H PRN #240 syrup 05/24/19 Unknown Rx [Skqbcskfsq-Didwuoesywp-Bq Syr] Sulfamethoxazole/Trimethoprim 1 each PO BID #20 tablet 05/25/19 Unknown Rx [Bactrim DS TAB] Acetaminophen [Tylenol] 650 mg PO QID #30 capsule 05/27/19 Unknown Rx Nitrofurantoin [place]/M-Cryst 100 mg PO BID 7 Days #14 capsule 05/27/19 Unknown Rx [Macrobid CAP] Permethrin 5% [Acticin 5% CREAM] 1 applicatio TP ONCE #1 tube 05/27/19 Unknown Rx Prednisone [predniSONE 10 mg 10 mg PO .TAPER #1 tab.ds.pk 06/04/19 Unknown Rx (6-Day Pack, 21 Tabs)] Albuterol Mdi (or & Nicu Only) 2 puff IH QID PRN #8.5 gram 06/09/19 Unknown Rx [ProAir HFA Inhaler] Azithromycin [Zithromax TAB] 500 mg PO QDAY #3 tablet 06/09/19 Unknown Rx Benzonatate [Tessalon Perles] 100 mg PO Q8HR #30 capsule 06/09/19 Unknown Rx predniSONE [Deltasone] 50 mg PO QDAY #10 tab 06/09/19 Unknown Rx levoFLOXacin [Levaquin] 750 mg PO QDAY 4 Days #4 tablet 06/11/19 Unknown Rx Albuterol Sulfate [Proair 90 mcg IH Q4HR PRN #2 aer.pow.ba 06/15/19 Unknown Rx Respiclick] Ipratropium (Nf) [Atrovent] 2 puff IH Q6HR PRN #1 inha 06/15/19 Unknown Rx Nitrofurantoin [place]/M-Cryst 100 mg PO Q12HR #20 capsule 07/06/20 Unknown Rx [Macrobid CAP] Phenazopyridine [Pyridium] 200 mg PO TID #9 tab 07/06/20 Unknown Rx Ciprofloxacin HCl 500 mg PO BID 7 Days #14 tablet 11/18/20 Unknown Rx Albuterol Mdi (or & Nicu Only) 2 puff IH QID PRN #1 inh 12/03/20 Unknown Rx [ProAir HFA Inhaler] levoFLOXacin [Levaquin] 750 mg PO QDAY #3 tablet 12/03/20 Unknown Rx predniSONE [Deltasone] 40 mg PO DAILY #6 tablet 12/03/20 Unknown Rx Allergies Allergy/AdvReac Type Severity Reaction Status Date / Time cephalexin monohydrate Allergy Rash Verified 11/30/20 18:23 [From Keflex] aripiprazole [From Abilify] AdvReac "tardive Verified 11/30/20 18:23 dyskinesia" haloperidol [From Haldol] AdvReac pain Verified 11/30/20 18:23 haloperidol lactate AdvReac pain Verified 11/30/20 18:23 [From Haldol] lisinopril AdvReac "it hurts Verified 11/30/20 18:23 my head" lithium AdvReac "It makes Verified 11/30/20 18:23 me mad" Phenothiazines AdvReac pain Verified 11/30/20 18:23 quetiapine fumarate AdvReac pain Verified 11/30/20 18:23 [From Seroquel] risperidone [From Risperdal] AdvReac tardive Verified 11/30/20 18:23 dyskinesia steroids Allergy Unknown Uncoded 06/04/19 18:04 Heart Score - HEART Score History: Slightly suspicious EKG: Normal Age: 45-65 Risk factors: 1-2 risk factors Troponin: < normal limit HEART Score: 2 - EKG Read Time Time EKG Completed: 19:16 EKG Read Time: 19:22 - Critical Actions Critical Actions: 0-3 pts:0.9-1.7%risk of adverse cardiac event.Candidate for discharge ED Review of Systems ROS: Stated complaint: CP Other details as noted in HPI Comment: All other systems reviewed and negative Constitutional: denies: chills, fever Eyes: denies: eye pain, vision change ENT: denies: ear pain, throat pain Respiratory: cough, shortness of breath, wheezing Cardiovascular: chest pain. denies: edema Gastrointestinal: denies: abdominal pain, vomiting Genitourinary: denies: dysuria, discharge Musculoskeletal: denies: back pain, arthralgia Skin: denies: rash, lesions Neurological: denies: headache, weakness ED Past Medical Hx - Past Medical History Previous Medical History?: Yes Hx Congestive Heart Failure: No Hx Diabetes: No Hx Kidney Stones: Yes Hx Psychiatric Treatment: Yes (manic depression) Hx Asthma: Yes Hx COPD: Yes Hx HIV: Yes Additional medical history: bronchitis. neurogenic bladder. Multiple prior UTIs and kidney stone - Surgical History Additional Surgical History: hysterectomy. hemorrhoid - Social History Smoking Status: Current Every Day Smoker Substance Use Type: Alcohol - Medications Home Medications: Home Medications Medication Instructions Recorded Confirmed Last Taken Type Aspirin EC [Halfprin EC] 81 mg PO QDAY #30 tablet. 02/05/19 Unknown Rx Nitroglycerin [Nitrostat] 0.4 mg SL Q5M PRN #30 tablet 02/05/19 Unknown Rx Pantoprazole [Protonix TAB] 40 mg PO QDAY #30 tablet 02/05/19 Unknown Rx Pravastatin [Pravachol] 20 mg PO QHS #30 tablet 02/05/19 Unknown Rx Albuterol Mdi (or & Nicu Only) 1 puff IH Q4-6H PRN #1 inha 05/24/19 Unknown Rx [ProAir HFA Inhaler] Brompheniramine/Pseudoephed/Dm 5 ml PO Q6H PRN #240 syrup 05/24/19 Unknown Rx [Tlavrfxosk-Awklecskpxl-Jd Syr] Sulfamethoxazole/Trimethoprim 1 each PO BID #20 tablet 05/25/19 Unknown Rx [Bactrim DS TAB] Acetaminophen [Tylenol] 650 mg PO QID #30 capsule 05/27/19 Unknown Rx Nitrofurantoin [place]/M-Cryst 100 mg PO BID 7 Days #14 capsule 05/27/19 Unknown R x [Macrobid CAP] Permethrin 5% [Acticin 5% CREAM] 1 applicatio TP ONCE #1 tube 05/27/19 Unknown Rx Prednisone [predniSONE 10 mg 10 mg PO .TAPER #1 tab.ds.pk 06/04/19 Unknown Rx (6-Day Pack, 21 Tabs)] Albuterol Mdi (or & Nicu Only) 2 puff IH QID PRN #8.5 gram 06/09/19 Unknown Rx [ProAir HFA Inhaler] Azithromycin [Zithromax TAB] 500 mg PO QDAY #3 tablet 06/09/19 Unknown Rx Benzonatate [Tessalon Perles] 100 mg PO Q8HR #30 capsule 06/09/19 Unknown Rx predniSONE [Deltasone] 50 mg PO QDAY #10 tab 06/09/19 Unknown Rx levoFLOXacin [Levaquin] 750 mg PO QDAY 4 Days #4 tablet 06/11/19 Unknown Rx Albuterol Sulfate [Proair 90 mcg IH Q4HR PRN #2 aer.pow.ba 06/15/19 Unknown Rx Respiclick] Ipratropium (Nf) [Atrovent] 2 puff IH Q6HR PRN #1 inha 06/15/19 Unknown Rx Nitrofurantoin [place]/M-Cryst 100 mg PO Q12HR #20 capsule 07/06/20 Unknown Rx [Macrobid CAP] Phenazopyridine [Pyridium] 200 mg PO TID #9 tab 07/06/20 Unknown Rx Ciprofloxacin HCl 500 mg PO BID 7 Days #14 tablet 11/18/20 Unknown Rx Albuterol Mdi (or & Nicu Only) 2 puff IH QID PRN #1 inh 12/03/20 Unknown Rx [ProAir HFA Inhaler] levoFLOXacin [Levaquin] 750 mg PO QDAY #3 tablet 12/03/20 Unknown Rx predniSONE [Deltasone] 40 mg PO DAILY #6 tablet 12/03/20 Unknown Rx ED Physical Exam - General Limitations: No Limitations - Other Other exam information: GENERAL: The patient is well-developed well-nourished. HENT: Normocephalic. Atraumatic. Patient has moist mucous membranes. EYES: Extraocular motions are intact. NECK: Supple. Trachea is midline. CHEST/LUNGS: Clear to auscultation. There is no respiratory distress noted. HEART/CARDIOVASCULAR: Regular. There is no tachycardia. There is no murmur. ABDOMEN: Abdomen is soft, nontender. Patient has normal bowel sounds. SKIN: Skin is warm and dry. NEURO: The patient is awake, alert, and oriented. The patient is cooperative. The patient has no focal neurologic deficits. Normal speech. MUSCULOSKELETAL: There is no tenderness or deformity. There is no limitation range of motion. ED Course Vital Signs 12/02/20 12/03/20 12/03/20 19:08 06:17 06:23 Temperature 98.3 F Pulse Rate 64 Respiratory 20 19 Rate Blood Pressure 142/70 Blood Pressure [Right] O2 Sat by Pulse 95 99 Oximetry 12/03/20 12/03/20 06:24 06:34 Temperature 98.2 F Pulse Rate 71 Respiratory 19 16 Rate Blood Pressure Blood Pressure 128/74 [Right] O2 Sat by Pulse 100 Oximetry AYAAN score - Ayaan Score Age > 65: (0) No Aspirin use within the Past 7 Days: (0) No 3 or more CAD Risk Factors: (0) No 2 or more Angina events in past 24 hrs: (1) Yes Known CAD with more than 50% Stenosis: (0) No Elevated Cardiac Markers: (0) No ST Deviation Greater than 0.5mm: (0) No AYAAN Score: 1 ED Medical Decision Making - Lab Data Result diagrams: 12/02/20 20:29 12/02/20 20:29 Lab Results 12/02/20 12/02/20 12/02/20 Range/Units 20:29 20:29 21:58 WBC 13.4 H (4.5-11.0) K/mm3 RBC 4.08 (3.65-5.03) M/mm3 Hgb 12.9 (10.1-14.3) gm/dl Hct 39.2 (30.3-42.9) % MCV 96 (79-97) fl MCH 32 (28-32) pg MCHC 33 (30-34) % RDW 14.3 (13.2-15.2) % Plt Count 328 (140-440) K/mm3 Lymph % (Auto) 13.8 (13.4-35.0) % [place] % (Auto) 7.2 (0.0-7.3) % Eos % (Auto) 0.0 (0.0-4.3) % Baso % (Auto) 0.1 (0.0-1.8) % Lymph # (Auto) 1.9 (1.2-5.4) K/mm3 [place] # (Auto) 1.0 H (0.0-0.8) K/mm3 Eos # (Auto) 0.0 (0.0-0.4) K/mm3 Baso # (Auto) 0.0 (0.0-0.1) K/mm3 Seg Neutrophils % 78.9 H (40.0-70.0) % Seg Neutrophils # 10.6 H (1.8-7.7) K/mm3 D-Dimer (0-234) ng/mlDDU Sodium 138 (137-145) mmol/L Potassium 4.1 (3.6-5.0) mmol/L Chloride 102.1 (98-107) mmol/L Carbon Dioxide 26 (22-30) mmol/L Anion Gap 14 mmol/L BUN 26 H (7-17) mg/dL Creatinine 1.0 (0.6-1.2) mg/dL Estimated GFR 56 ml/min BUN/Creatinine Ratio 26 % Glucose 110 H (65-100) mg/dL Calcium 9.7 (8.4-10.2) mg/dL Total Bilirubin 0.30 (0.1-1.2) mg/dL AST 20 (5-40) units/L ALT 14 (7-56) units/L Alkaline Phosphatase 64 (35-129) units/L Troponin T < 0.010 < 0.010 (0.00-0.029) ng/mL Total Protein 7.4 (6.3-8.2) g/dL Albumin 4.2 (3.9-5) g/dL Albumin/Globulin Ratio 1.3 % 12/03/20 12/03/20 Range/Units 02:07 04:20 WBC (4.5-11.0) K/mm3 RBC (3.65-5.03) M/mm3 Hgb (10.1-14.3) gm/dl Hct (30.3-42.9) % MCV (79-97) fl MCH (28-32) pg MCHC (30-34) % RDW (13.2-15.2) % Plt Count (140-440) K/mm3 Lymph % (Auto) (13.4-35.0) % [place] % (Auto) (0.0-7.3) % Eos % (Auto) (0.0-4.3) % Baso % (Auto) (0.0-1.8) % Lymph # (Auto) (1.2-5.4) K/mm3 [place] # (Auto) (0.0-0.8) K/mm3 Eos # (Auto) (0.0-0.4) K/mm3 Baso # (Auto) (0.0-0.1) K/mm3 Seg Neutrophils % (40.0-70.0) % Seg Neutrophils # (1.8-7.7) K/mm3 D-Dimer 149.26 (0-234) ng/mlDDU Sodium (137-145) mmol/L Potassium (3.6-5.0) mmol/L Chloride (98-107) mmol/L Carbon Dioxide (22-30) mmol/L Anion Gap mmol/L BUN (7-17) mg/dL Creatinine (0.6-1.2) mg/dL Estimated GFR ml/min BUN/Creatinine Ratio % Glucose (65-100) mg/dL Calcium (8.4-10.2) mg/dL Total Bilirubin (0.1-1.2) mg/dL AST (5-40) units/L ALT (7-56) units/L Alkaline Phosphatase (35-129) units/L Troponin T < 0.010 (0.00-0.029) ng/mL Total Protein (6.3-8.2) g/dL Albumin (3.9-5) g/dL Albumin/Globulin Ratio % - EKG Data -: EKG Interpreted by Me EKG shows normal: sinus rhythm, axis, intervals, QRS complexes, ST-T waves Rate: normal - EKG Data When compared to previous EKG there are: no significant change Interpretation: unchanged when compared t (11/18/20) - Radiology Data Radiology results: image reviewed interpreted by me: Chest x-ray does not show any acute process. There are no pleural effusions, obvious pneumonia and there is no pneumothorax. No widened mediastinum. - Medical Decision Making This patient had left AGAINST MEDICAL ADVICE after being admitted, but before receiving a bed upstairs. She returns with a complaint of generalized chest discomfort and shortness of breath. She was positive for COVID-19 as of 2 days ago. Heart and lung sounds are normal to auscultation. The patient does not appear in any respiratory or acute distress. EKG does not have any morphology consistent with ST elevation myocardial infarction or any dysrhythmia. Chest x-ray does not show any pneumonia, pleural effusions, pneumothorax, widened mediastinum, or any other acute process. The patient's labs have been mostly unremarkable including CBC, metabolic panel, negative troponins x3, and a negative D-dimer level. The patient's chest pain does not appear consistent with ACS. She is low on the heart and AYAAN score. The patient vital signs have been reassuring throughout her ED course including being afebrile. No hypoxia or any significant increased work of breathing with ambulation. For all these reasons patient appears safe for discharge home at this time. Her contact information has been sent over to the [facility], and someone from their office should be contacting her for close outpatient follow-up as part of our [facility] chest pain protocol. Of course this may be slightly delayed while she recovers from COVID-19. She has been instructed to return to the emergency department with any worsening of her symptoms or with any acute distress. Critical Care Time: No Critical care attestation.: If time is entered above; I have spent that time in minutes in the direct care of this critically ill patient, excluding procedure time. ED Disposition Clinical Impression: COVID-19 COPD (chronic obstructive pulmonary disease) Qualifiers: COPD type: COPD with acute exacerbation Qualified Code(s): J44.1 - Chronic obstructive pulmonary disease with (acute) exacerbation Chest pain Qualifiers: Chest pain type: unspecified Qualified Code(s): R07.9 - Chest pain, unspecified UTI (urinary tract infection) Qualifiers: Urinary tract infection type: acute cystitis Hematuria presence: without hematuria Qualified Code(s): N30.00 - Acute cystitis without hematuria Disposition: LEFT AWOL/ELOPED Is pt being admited?: No Condition: Stable Instructions: COVID-19, Nonspecific Chest Pain, Adult, Urinary Tract Infection, Adult, Chronic Obstructive Pulmonary Disease (ED) Additional Instructions: Please follow-up with a primary care physician in the next few days. I have given you a referral for a local primary care physician, Dr. Hammond, and a primary care clinic, [facility]. I am sending your contact information over to the [facility], and someone from their office should be contacting you shortly for close outpatient follow-up. Just in case, I am giving you a referral for one of their legal librarian, Dr. Scherer. Please avoid any tobacco or illicit drug use. Take all medications as prescribed. Return to the emergency department with any worsening of your symptoms, new or concerning symptoms not addressed during this current emergency department visit, or with any acute distress. Prescriptions: predniSONE [Deltasone] 40 mg PO DAILY #6 tablet levoFLOXacin [Levaquin] 750 mg PO QDAY #3 tablet Albuterol Mdi (or & Nicu Only) [ProAir HFA Inhaler] 2 puff IH QID PRN #1 inh PRN Reason: Shortness Of Breath Referrals: PRIMARY CAREMD [Primary Care Provider] - 3-5 Days RANDEE SCHERER MD [Staff Physician] - 3-5 Days HOLLIE HAMMOND MD [Staff Physician] - 3-5 Days [facility] [Provider Group] - 3-5 Days Time of Disposition: 06:15
[2020-12-03] MEDS ORDERED: KETOROLAC 30 MG/1 ML INJ IV ONE (05:44)
[2020-12-03] MEDS ORDERED: ASPIRIN 325 MG TAB PO ONE (06:10)
[2020-12-03 06:25] VITALS: BP 128/74
--- NOTE | 2020-12-05 08:51 | Electrocardiograph Report ---
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
== END 2020-12-03 09:02 | disposition left against medical advice (07) ==
LOC: ED 17:57
DX: U07.1 COVID-19 (principal); J44.9 Chronic obstructive pulmonary disease, unspecified; R07.9 Chest pain, unspecified; N39.0 Urinary tract infection, site not specified; Z88.1 Allergy status to other antibiotic agents; Z88.8 Allergy status to other drugs, medicaments and biological substances; F17.200 Nicotine dependence, unspecified, uncomplicated; F10.20 Alcohol dependence, uncomplicated
CPT/HCPCS: 36415; 71046; 80053; 84484; 85025; 85379; 93005; 96365; 96375; 99284; J1885; J1956

== ENCOUNTER 2021-01-26 20:04 | Emergency (ER) | payer MEDICARE ==
[2021-01-26 20:20] VITALS: BP 140/80
== END 2021-01-27 03:53 | disposition left against medical advice (07) ==
LOC: ED 20:04
DX: R53.81 Other malaise (principal); Z53.21 Procedure and treatment not carried out due to patient leaving prior to being seen by health care provider

== ENCOUNTER 2021-04-26 18:53 | Emergency (ER) | payer MEDICARE ==
[2021-04-27 06:56] LABS: Bacteria,Urine 1+ /HPF (Negative); Bilirubin,Urine NEG (Negative); Blood,Urine MOD (Negative); Calcium Oxalate Crystals,Urine 2+; Color,Urine Amber (Yellow); Mucus,Urine FEW /HPF; Urobilinogen,Urine < 2.0 mg/dL (<2.0)
[2021-04-27 06:57] LABS: Protein,Urine >500 mg/dL (Negative); WBC,Urine > 182.0 /HPF (0.0-6.0)
--- NOTE | 2021-04-27 07:18 | Emergency Department Report ---
ED Female HPI - General Chief complaint: Medical Clearance Stated complaint: KIDNEY PAIN Time Seen by Provider: 04/27/21 06:32 Source: patient, EMS Mode of arrival: Ambulatory Limitations: No Limitations - History of Present Illness Initial comments: 64-year-old female presents to the emergency room complaining she has kidney pain for the last week. Patient denies any nausea no vomiting no chest pain or shortness of breath. She denies any hematuria. She does admit to dysuria. States that her urine smells strong. She denies any fever no chills. Reports that she is homeless. MD Complaint: dysuria Onset/Timin -: week(s) Severity: moderate Severity scale (0 -10): 5 Quality: burning Consistency: intermittent Improves with: none Worsens with: urination Are you Now?: No Associated Symptoms: denies other symptoms - Related Data Previous Rx's Medication Instructions Recorded Last Taken Type Aspirin EC [Halfprin EC] 81 mg PO QDAY #30 tablet. 02/05/19 Unknown Rx Nitroglycerin [Nitrostat] 0.4 mg SL Q5M PRN #30 tablet 02/05/19 Unknown Rx Pantoprazole [Protonix TAB] 40 mg PO QDAY #30 tablet 02/05/19 Unknown Rx Pravastatin [Pravachol] 20 mg PO QHS #30 tablet 02/05/19 Unknown Rx Albuterol Mdi (or & Nicu Only) 1 puff IH Q4-6H PRN #1 inha 05/24/19 Unknown Rx [ProAir HFA Inhaler] Brompheniramine/Pseudoephed/Dm 5 ml PO Q6H PRN #240 syrup 05/24/19 Unknown Rx [Cilcldciqx-Oezzokjehha-Hm Syr] Sulfamethoxazole/Trimethoprim 1 each PO BID #20 tablet 05/25/19 Unknown Rx [Bactrim DS TAB] Acetaminophen [Tylenol] 650 mg PO QID #30 capsule 05/27/19 Unknown Rx Nitrofurantoin Wood/M-Cryst 100 mg PO BID 7 Days #14 capsule 05/27/19 Unknown Rx [Macrobid CAP] Permethrin 5% [Acticin 5% CREAM] 1 applicatio TP ONCE #1 tube 05/27/19 Unknown Rx Prednisone [predniSONE 10 mg 10 mg PO .TAPER #1 tab.ds.pk 06/04/19 Unknown Rx (6-Day Pack, 21 Tabs)] Albuterol Mdi (or & Nicu Only) 2 puff IH QID PRN #8.5 gram 06/09/19 Unknown Rx [ProAir HFA Inhaler] Azithromycin [Zithromax TAB] 500 mg PO QDAY #3 tablet 06/09/19 Unknown Rx Benzonatate [Tessalon Perles] 100 mg PO Q8HR #30 capsule 06/09/19 Unknown Rx predniSONE [Deltasone] 50 mg PO QDAY #10 tab 06/09/19 Unknown Rx levoFLOXacin [Levaquin] 750 mg PO QDAY 4 Days #4 tablet 06/11/19 Unknown Rx Albuterol Sulfate [Proair 90 mcg IH Q4HR PRN #2 aer.pow.ba 06/15/19 Unknown Rx Respiclick] Ipratropium (Nf) [Atrovent] 2 puff IH Q6HR PRN #1 inha 06/15/19 Unknown Rx Nitrofurantoin Wood/M-Cryst 100 mg PO Q12HR #20 capsule 07/06/20 Unknown Rx [Macrobid CAP] Phenazopyridine [Pyridium] 200 mg PO TID #9 tab 07/06/20 Unknown Rx Ciprofloxacin HCl 500 mg PO BID 7 Days #14 tablet 11/18/20 Unknown Rx Albuterol Mdi (or & Nicu Only) 2 puff IH QID PRN #1 inh 12/03/20 Unknown Rx [ProAir HFA Inhaler] levoFLOXacin [Levaquin] 750 mg PO QDAY #3 tablet 12/03/20 Unknown Rx predniSONE [Deltasone] 40 mg PO DAILY #6 tablet 12/03/20 Unknown Rx Sulfamethoxazole/Trimethoprim 1 each PO BID 10 Days #20 tab 04/27/21 Unknown Rx [Bactrim DS TAB] Allergies Allergy/AdvReac Type Severity Reaction Status Date / Time cephalexin monohydrate Allergy Rash Verified 11/30/20 18:23 [From Keflex] aripiprazole [From Abilify] AdvReac "tardive Verified 11/30/20 18:23 dyskinesia" haloperidol [From Haldol] AdvReac pain Verified 11/30/20 18:23 haloperidol lactate AdvReac pain Verified 11/30/20 18:23 [From Haldol] lisinopril AdvReac "it hurts Verified 11/30/20 18:23 my head" lithium AdvReac "It makes Verified 11/30/20 18:23 me mad" Phenothiazines AdvReac pain Verified 11/30/20 18:23 quetiapine fumarate AdvReac pain Verified 11/30/20 18:23 [From Seroquel] risperidone [From Risperdal] AdvReac tardive Verified 11/30/20 18:23 dyskinesia steroids Allergy Unknown Uncoded 06/04/19 18:04 ED Review of Systems ROS: Stated complaint: KIDNEY PAIN Other details as noted in HPI Comment: All other systems reviewed and negative ED Past Medical Hx - Past Medical History Previous Medical History?: Yes Hx Congestive Heart Failure: No Hx Diabetes: No Hx Kidney Stones: Yes Hx Psychiatric Treatment: Yes (manic depression) Hx Asthma: Yes Hx COPD: Yes Hx HIV: Yes Additional medical history: bronchitis. neurogenic bladder. Multiple prior UTIs and kidney stone - Surgical History Past Surgical History?: Yes Additional Surgical History: hysterectomy. hemorrhoid - Social History Smoking Status: Current Every Day Smoker Substance Use Type: Alcohol - Medications Home Medications: Home Medications Medication Instructions Recorded Confirmed Last Taken Type Aspirin EC [Halfprin EC] 81 mg PO QDAY #30 tablet. 02/05/19 Unknown Rx Nitroglycerin [Nitrostat] 0.4 mg SL Q5M PRN #30 tablet 02/05/19 Unknown Rx Pantoprazole [Protonix TAB] 40 mg PO QDAY #30 tablet 02/05/19 Unknown Rx Pravastatin [Pravachol] 20 mg PO QHS #30 tablet 02/05/19 Unknown Rx Albuterol Mdi (or & Nicu Only) 1 puff IH Q4-6H PRN #1 inha 05/24/19 Unknown Rx [ProAir HFA Inhaler] Brompheniramine/Pseudoephed/Dm 5 ml PO Q6H PRN #240 syrup 05/24/19 Unknown Rx [Oszsdqexap-Wdekpiwertt-Zo Syr] Sulfamethoxazole/Trimethoprim 1 each PO BID #20 tablet 05/25/19 Unknown Rx [Bactrim DS TAB] Acetaminophen [Tylenol] 650 mg PO QID #30 capsule 05/27/19 Unknown Rx Nitrofurantoin Wood/M-Cryst 100 mg PO BID 7 Days #14 capsule 05/27/19 Unknown Rx [Macrobid CAP] Permethrin 5% [Acticin 5% CREAM] 1 applicatio TP ONCE #1 tube 05/27/19 Unknown Rx Prednisone [predniSONE 10 mg 10 mg PO .TAPER #1 tab.ds.pk 06/04/19 Unknown Rx (6-Day Pack, 21 Tabs)] Albuterol Mdi (or & Nicu Only) 2 puff IH QID PRN #8.5 gram 06/09/19 Unknown Rx [ProAir HFA Inhaler] Azithromycin [Zithromax TAB] 500 mg PO QDAY #3 tablet 06/09/19 Unknown Rx Benzonatate [Tessalon Perles] 100 mg PO Q8HR #30 capsule 06/09/19 Unknown Rx predniSONE [Deltasone] 50 mg PO QDAY #10 tab 06/09/19 Unknown Rx levoFLOXacin [Levaquin] 750 mg PO QDAY 4 Days #4 tablet 06/11/19 Unknown Rx Albuterol Sulfate [Proair 90 mcg IH Q4HR PRN #2 aer.pow.ba 06/15/19 Unknown Rx Respiclick] Ipratropium (Nf) [Atrovent] 2 puff IH Q6HR PRN #1 inha 06/15/19 Unknown Rx Nitrofurantoin Wood/M-Cryst 100 mg PO Q12HR #20 capsule 07/06/20 Unknown Rx [Macrobid CAP] Phenazopyridine [Pyridium] 200 mg PO TID #9 tab 07/06/20 Unknown Rx Ciprofloxacin HCl 500 mg PO BID 7 Days #14 tablet 11/18/20 Unknown Rx Albuterol Mdi (or & Nicu Only) 2 puff IH QID PRN #1 inh 12/03/20 Unknown Rx [ProAir HFA Inhaler] levoFLOXacin [Levaquin] 750 mg PO QDAY #3 tablet 12/03/20 Unknown Rx predniSONE [Deltasone] 40 mg PO DAILY #6 tablet 12/03/20 Unknown Rx Sulfamethoxazole/Trimethoprim 1 each PO BID 10 Days #20 tab 04/27/21 Unknown Rx [Bactrim DS TAB] ED Physical Exam - General Limitations: No Limitations General appearance: alert, in no apparent distress - Head Head exam: Present: atraumatic, normocephalic - Eye Eye exam: Present: normal appearance - ENT ENT exam: Present: mucous membranes moist - Neck Neck exam: Present: normal inspection - Respiratory Respiratory exam: Present: normal lung sounds bilaterally. Absent: respiratory distress - Cardiovascular Cardiovascular Exam: Present: regular rate, normal rhythm. Absent: systolic murmur, diastolic murmur, rubs, gallop - GI/Abdominal GI/Abdominal exam: Present: soft, normal bowel sounds - Extremities Exam Extremities exam: Present: normal inspection - Back Exam Back exam: Present: normal inspection - Neurological Exam Neurological exam: Present: alert, oriented X3 - Psychiatric Psychiatric exam: Present: normal affect, normal mood - Skin Skin exam: Present: warm, dry, intact, normal color. Absent: rash ED Medical Decision Making - Medical Decision Making 64-year-old female presents to the emergency room complaining she has kidney pain for the last week. Patient denies any nausea no vomiting no chest pain or shortness of breath. She denies any hematuria. She does admit to dysuria. States that her urine smells strong. She denies any fever no chills. Reports that she is homeless. Urinalysis sent out Urinalysis back for urinary tract infection we will treat patient accordingly. Encouraged to increase her fluid intake and follow-up with a [employer] or primary care provider. Critical care attestation.: If time is entered above; I have spent that time in minutes in the direct care of this critically ill patient, excluding procedure time. ED Disposition Clinical Impression: UTI (urinary tract infection) Disposition: 01 HOME / SELF CARE / HOMELESS Is pt being admited?: No Does the pt Need Aspirin: No Condition: Stable Instructions: Urinary Tract Infection, Adult, [id number] Additional Instructions: Urinalysis shows you have a urinary tract infection. Like for you to complete your antibiotics increase your water intake follow-up with a primary care provider or [employer] provider. Prescriptions: Sulfamethoxazole/Trimethoprim [Bactrim DS TAB] 1 each PO BID 10 Days #20 tab Time of Disposition: 07:22
[2021-04-27 08:08] VITALS: BP 136/89
== END 2021-04-27 08:08 | disposition home or self-care (01) ==
LOC: ED 18:53
DX: N39.0 Urinary tract infection, site not specified (principal); J45.909 Unspecified asthma, uncomplicated; F17.200 Nicotine dependence, unspecified, uncomplicated; F10.20 Alcohol dependence, uncomplicated; Z88.8 Allergy status to other drugs, medicaments and biological substances
CPT/HCPCS: 81001; 99283

== ENCOUNTER 2021-10-04 13:22 | Emergency (ER) | payer MEDICARE ==
[2021-10-04 13:35] VITALS: BP 144/76
[2021-10-04 14:50] LABS: Albumin 4.2 g/dL (3.9-5); Calcium 9.6 mg/dL (8.4-10.2)
[2021-10-04 14:53] LABS: Hematocrit 40.9 % (30.3-42.9); Hemoglobin 13.5 gm/dl (10.1-14.3); Mean Corpuscular HGB Conc 33 % (30-34); Mean Corpuscular Volume 93 fl (79-97); Platelet Count 295 K/mm3 (140-440); Red Blood Count 4.39 M/mm3 (3.65-5.03); Red Cell Distribution Width 13.7 % (13.2-15.2)
[2021-10-04 18:58] LABS: Bilirubin,Urine NEG (Negative); Blood,Urine MOD (Negative); Color,Urine Yellow (Yellow); Urobilinogen,Urine < 2.0 mg/dL (<2.0)
[2021-10-04 19:06] LABS: Bacteria,Urine 1+ /HPF (Negative); Mucus,Urine 3+ /HPF
[2021-10-04 19:07] LABS: WBC,Urine > 182.0 /HPF (0.0-6.0)
== END 2021-10-04 15:00 | disposition left against medical advice (07) ==
LOC: ED 13:22
DX: R10.9 Unspecified abdominal pain (principal); Z53.21 Procedure and treatment not carried out due to patient leaving prior to being seen by health care provider
CPT/HCPCS: 36415; 80053; 81001; 83690; 85027